=== PATIENT | male | born 1960 | race Caucasian/White ===

== ENCOUNTER 2020-06-01 19:42 | Inpatient (IN) ==
[2020-06-01 20:08] VITALS: BMI 34.2
[2020-06-01] MEDS ORDERED: ZOFRAN INJ 4 MG VIAL IVP ONE (20:44)
[2020-06-01] MEDS ORDERED: NS 1000 ML 1,000 ML IV ONE ×2 (20:44→23:00)
--- NOTE | 2020-06-01 20:44 | DR.EXTPAIN ---
HPI Time seen Time Seen by Provider: 06/01/20 20:41 PCP Primary Care Physician: HODA Complaint/Symptoms Chief Complaint Doctor Comments: PATIENT COMPLAINS OF RIGHT UPPER ABDOMINAL PAIN X 3 WEEKS, PAIN PROGRESSIVELY WORSE PAST 3 DAYS ASSOCIATED WITH EMESIS X 3 EPISODES TODAY, LOW GRADE FEVER, PAIN SEVERE PAIN SCALE 8/10 WHICH RADIATES TO RIGHT SHOULDER BLADE. DENIES URINARY SYMPTOMS, DIARRHEA. Chief Complaint:: "PATIENT STATES GALLBLADDER PAIN/ ABDOMINAL PAIN ISSUES HAVE BEEN GOING ON FOR 2-3 WEEKS, PATIENT CAN NOT KEEP ANYTHING DOWN AND HAS BEEN RUNNING A TEMP." Self Treatment fo Chief Complaint: PT. HAS HAD A GI COCKTAIL PT HAS HAD A GALLBLADDER ULTRASOUND TWO DAYS AGO COVID-19 Coronavirus risk:travel/contact w/high risk person: No Has patient experienced Coronavirus symptoms: No Source History Provided: Patient and Family Member Mode of arrival Mode of Arrival: Ambulatory Timing Onset of Chief Complaint: 05/25/20 PMH PMH Past Medical History: Yes Past Medical History: Hypertension, Hypothyroidism and Sleep Apnea Past Surgical History: Yes Surgical History: Appendectomy Family History History of Family Medical Conditions: Yes Family Medical History: Diabetes Mellitus, Coronary Artery Disease, Heart Failure and Hypertension Social History Does patient currently use any type of tobacco product: No Have you used tobacco products in the last 12 months: No Type of Tobacco Use: None Alcohol Use: Occasionally Do you use any recreational Drugs:: No Lives With: Spouse and Family Lives Where: Home Travel Risk Coronavirus risk:travel/contact w/high risk person: No Has patient experienced Coronavirus symptoms: No Infectious screening In the last 2 months have you had wt loss of >10#?: NO Have you had fever, night sweats or hemotysis?: Yes Have you traveled outside the country in the last 6 months?: No Isolation: Standard ROS Review of Systems Constitutional: No Symptoms Reported Eyes: No Symptoms Reported ENTM: No Symptoms Reported Respiratoy: No Symptoms Reported Cardiovascular: No Symptoms Reported Gastrointestinal/Abdominal: See HPI, Abdominal Pain (SEVERE RIGHT UPPER ABDOMINAL PAIN), Nausea and Vomiting Genitourinary: No Symptoms Reported Neurological: No Symptoms Reported Musculoskeletal: No Symptoms Reported Integumentary: No Symptoms Reported Hematologic/Lymphatic: No Symptoms Reported Endocrine: No Symptoms Reported Psychiatric: No Symptoms Reported All Other Systems: Reviewed and Negative PE Vital Signs Vitals: Temperature 99.3 F Pulse Rate [Bilateral Radial] 106 Pulse Rate 122 Respiratory Rate 18 Blood Pressure [Left Arm] 128/66 Blood Pressure 110/72 O2 Sat by Pulse Oximetry 94 General Limitations: No Limitations General Appearance: Alert, In No Apparent Distress and In Distress (MINIMAL DISTRESS) Head Head Exam: Normal Inspection Eyes Eye exam: Normal Appearance ENT ENT Exam: Normal Exam Neck Neck Exam: Normal Inspection Chest Chest Inspection: Normal Inspection Respiratory Respiratory Exam: Normal Lung Sounds Bilat Cardiovascular Cardiovascular Exam: Normal Rhythm and Tachycardia Abdominal Exam Abdominal Exam: Normal Inspection, Normal Bowel Sounds, Soft, Tenderness (MODERATE RUQ AND LLQ TENDERNESS WITH GUARDING, NO PALPABLE MASSES) and Rebound Abdominal Tenderness: RUQ and LLQ Extremities Extremities Exam: Normal Inspection Back Back Exam: Normal Inspection Neurological Neurological Exam: Alert, Oriented X3 and CN II-XII Intact Psychiatric Psychiatric Exam: Normal Affect and Normal Mood Skin Skin Exam: Warm, Dry, Intact and Normal Color COURSE Consultation Called: 23:25 Call Returned: 23:30 Consultation Comments: DISCUSSED WITH DR COX FOR INPATIENT ADMISSION ROR Labs Reviewed Laboratory Results Reviewed?: Yes Result Diagrams: 06/01/20 21:03 06/01/20 21:03 Laboratory: WBC 23.1 X10^3/uL (3.6-10.0) H 06/01/20 21:03 RBC 5.10 X10^6/uL (4.7-6.0) 06/01/20 21:03 Hgb 15.6 g/dL (13.5-18.0) 06/01/20 21:03 Hct 46.8 % (42.0-54.0) 06/01/20 21:03 MCV 91.8 fL (80.0-100.0) 06/01/20 21:03 MCH 30.6 pg (27.0-34.0) 06/01/20 21:03 MCHC 33.3 g/dL (33.0-35.0) 06/01/20 21:03 RDW 14.0 % (11.6-16.5) 06/01/20 21:03 Plt Count 387 X10^3/uL (150.0-450.0) 06/01/20 21:03 Plt Count Comment Adequate (ADEQUATE) 06/01/20 21:03 MPV 7.3 fL (7.4-11.0) L 06/01/20 21:03 Neut % (Auto) 92.1 % (42.0-75.0) H 06/01/20 21:03 Lymph % (Auto) 3.2 % (21.0-51.0) L 06/01/20 21:03 [place] % (Auto) 3.8 % (0.0-13.0) 06/01/20 21:03 Eos % (Auto) 0.5 % (0.9-2.9) L 06/01/20 21:03 Baso % (Auto) 0.4 % (0.2-1.0) 06/01/20 21:03 Neut # (Auto) 21.3 x10^3/uL (2.2-4.8) H 06/01/20 21:03 Lymph # (Auto) 0.7 X10^3/uL (1.3-2.9) L 06/01/20 21:03 [place] # (Auto) 0.9 x10^3/uL (0.3-0.8) H 06/01/20 21:03 Eos # (Auto) 0.1 x10^3/uL (0.0-0.2) 06/01/20 21:03 Baso # (Auto) 0.1 X10^3/uL (0.0-0.1) 06/01/20 21:03 Absolute Nucleated RBC 0.1 /100WBC 06/01/20 21:03 Total Counted 100 06/01/20 21:03 Neutrophils % (Manual) 92 % (39-76) H 06/01/20 21:03 Lymphocytes % (Manual) 5 % (13-43) L 06/01/20 21:03 Monocytes % (Manual) 3 % (4-9) L 06/01/20 21:03 Plt Morphology Comment Normal (NORMAL) 06/01/20 21:03 RBC Morphology Normal (NORMAL) 06/01/20 21:03 PT 16.4 SECONDS (11.8-14.3) 06/01/20 21:03 INR Target Range - 06/01/20 21:03 INR 1.36 (0.8-1.3) H 06/01/20 21:03 Sodium 135 mmol/L (136-145) L 06/01/20 21:03 Corrected Sodium 136 mmol/L (136-145) 06/01/20 21:03 Potassium 4.0 mmol/L (3.5-5.1) 06/01/20 21:03 Chloride 97 mmol/L (98-107) L 06/01/20 21:03 Carbon Dioxide 27.6 mmol/L (21-32) 06/01/20 21:03 BUN 19 mg/dL (7-18) H 06/01/20 21:03 Creatinine 1.29 mg/dL (0.70-1.30) 06/01/20 21:03 Est GFR (MDRD) Af Amer > 60 (>60) 06/01/20 21:03 Est GFR (MDRD) Non-Af > 60 (>60) 06/01/20 21:03 Glucose 158 mg/dL (65-99) H 06/01/20 21:03 Lactic Acid 0.9 mmol/L (0.4-2.0) 06/01/20 21:03 Calcium 9.5 mg/dL (8.5-10.1) 06/01/20 21:03 Corrected Calcium 10.1 mg/dL (8.5-10.1) 06/01/20 21:03 Total Bilirubin 0.80 mg/dL (0.2-1.0) 06/01/20 21:03 AST 12 Units/L (15-37) L 06/01/20 21:03 ALT 23 Units/L (12-78) 06/01/20 21:03 Alkaline Phosphatase 77 Units/L (46-116) 06/01/20 21:03 Total Protein 7.7 g/dL (6.4-8.2) 06/01/20 21:03 Albumin 3.2 g/dL (3.4-5.0) L 06/01/20 21:03 Globulin 4.5 g/dL (2.5-4.5) 06/01/20 21:03 Albumin/Globulin Ratio 0.7 Ratio (1.1-2.1) L 06/01/20 21:03 Amylase 26 Units/L (25-115) 06/01/20 21:03 Lipase 74 Units/L (73-393) 06/01/20 21:03 Specimen Type Clean catch urine 06/01/20 22:18 Urine Color Claudette (YELLOW) 06/01/20 22:18 Urine Appearance Clear (CLEAR) 06/01/20 22:18 Urine pH 5.0 (5.0 - 8.0) 06/01/20 22:18 Ur Specific [place] 1.025 (1.000-1.030) 06/01/20 22:18 Urine Protein 3+ (NEGATIVE) 06/01/20 22:18 Urine Glucose (UA) Negative (NEGATIVE) 06/01/20 22:18 Urine Ketones 2+ (NEGATIVE) 06/01/20 22:18 Urine Occult Blood 1+ (NEGATIVE) 06/01/20 22:18 Urine Nitrite Positive (NEGATIVE) 06/01/20 22:18 Urine Bilirubin 1+ (NEGATIVE) 06/01/20 22:18 Urine Urobilinogen 2+ (NORMAL) 06/01/20:18 Ur Leukocyte Esterase 1+ (NEGATIVE) 06/01/20:18 Urine RBC 0-2 /HPF (0-3) 06/01/20:18 Urine WBC 3-5 /HPF (0-5) 06/01/20 22:18 Ur Squamous Epith Cells Rare /HPF (NEGATIVE) 06/01/20 22:18 Amorphous Sediment Trace /HPF (NEGATIVE) 06/01/20 22:18 Urine Bacteria Trace /HPF (NEGATIVE) 06/01/20 22:18 Hyaline Casts Few /LPF (NEGATIVE) 06/01/20 22:18 Urine Mucus Numerous /HPF (NEGATIVE) 06/01/20:18 Ur Culture Indicated? No/not indicated 06/01/20:18 XRAY XRAY Interpreted by: Radiologist X-ray Results: HISTORY RUQ PAIN STUDY ABDOMEN/PELVIS WITH CON COMPARISON None TECHNIQUE Multiple axial images of the abdomen and pelvis were obtained from the lung bases to the pubic symphysis after the administration of IV contrast. Dose reduction techniques including Automated Exposure Control (AEC) and adjustment of mA and kV were utilized. FINDINGS The visualized portions of the lung bases are unremarkable . The liver, spleen, pancreas, kidneys, and adrenal glands are unremarkable in their CT appearance. The gallbladder is unremarkable in its CT appearance . No significant mesenteric lymphadenopathy or stranding can be observed. There are diverticula arising from the descending and sigmoid colon. There is colonic thickening and pericolonic stranding involving the sigmoid colon consistent with acute diverticulitis. There is suggestion of fistulous communication with adjacent small bowel loops which are mildly dilated likely due to localized ileus. There is extensive pneumoperitoneum indicative of perforated viscus in the absence of recent abdominal surgery.. Post appendectomy changes... The urinary bladder is grossly unremarkable. The bony structures are grossly intact. Small fat containing umbilical hernia. IMPRESSION Acute sigmoid colon diverticulitis with pneumoperitoneum indicative of perforation. 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 COMMUNICATIONS: These findings were discussed with of the emergency Department at 10:50 p.m. 06/01/2020 by Radiology call account support manager. Is Electronically signed by: Biju Lozano (Jun 01, 2020 22:51:42) Opioid Opioid Risk Tool Age (Charli box if 16-45): No Total: 0 Total Score Risk Category: Low Risk Copyright: Konrad DAVIDSON predicting aberrant behaviors Diagnosis Discharge Problem: Diverticulitis of intestine with perforation Instructions Forms: Precautions for COVID19 Patient Portal Social Distancing
[2020-06-01] MEDS ORDERED: NS 1000 ML 1,000 ML ONE ×2 (20:55→23:23)
[2020-06-01] MEDS ORDERED: DILAUDID INJ ONE (20:55)
[2020-06-01] MEDS ORDERED: ZOFRAN INJ 4 MG VIAL ONE (20:55)
[2020-06-01] MEDS: DILAUDID INJ IVP STA ×2 (21:14→21:27)
[2020-06-01 21:20] LABS: BASOPHILS # (AUTO) 0.1 X10^3/uL (0.0-0.1); BASOPHILS % (AUTO) 0.4 % (0.2-1.0); EOSINOPHILS # (AUTO) 0.1 x10^3/uL (0.0-0.2); EOSINOPHILS % (AUTO) 0.5 % (0.9-2.9); HEMATOCRIT 46.8 % (42.0-54.0); HEMOGLOBIN 15.6 g/dL (13.5-18.0); LYMPHOCYTES # (AUTO) 0.7 X10^3/uL (1.3-2.9); LYMPHOCYTES % (AUTO) 3.2 % (21.0-51.0); MEAN CORPUSCULAR HEMOGLOBIN 30.6 pg (27.0-34.0); MEAN CORPUSCULAR HGB CONC 33.3 g/dL (33.0-35.0); MEAN CORPUSCULAR VOLUME 91.8 fL (80.0-100.0); MEAN PLATELET VOLUME 7.3 fL (7.4-11.0); MONOCYTES # (AUTO) 0.9 x10^3/uL (0.3-0.8); MONOCYTES % (AUTO) 3.8 % (0.0-13.0); NEUTROPHILS # (AUTO) 21.3 x10^3/uL (2.2-4.8); NEUTROPHILS % (AUTO) 92.1 % (42.0-75.0); PLATELET COUNT 387 X10^3/uL (150.0-450.0); WHITE BLOOD COUNT 23.1 X10^3/uL (3.6-10.0)
[2020-06-01 21:25] LABS: ALANINE AMINOTRANSFERASE 23 Units/L (12-78); ALBUMIN 3.2 g/dL (3.4-5.0); ALKALINE PHOSPHATASE 77 Units/L (46-116); AMYLASE 26 Units/L (25-115); ASPARTATE AMINO TRANSFERASE 12 Units/L (15-37); BLOOD UREA NITROGEN 19 mg/dL (7-18); CALCIUM 9.5 mg/dL (8.5-10.1); CARBON DIOXIDE 27.6 mmol/L (21-32); CHLORIDE 97 mmol/L (98-107); COR CA(FOR HYPOALB) 10.1 mg/dL (8.5-10.1); COR NA(FOR HYPERGLY) 136 mmol/L (136-145); CREATININE 1.29 mg/dL (0.70-1.30); LIPASE 74 Units/L (73-393); SODIUM 135 mmol/L (136-145); TOTAL PROTEIN 7.7 g/dL (6.4-8.2); eGFR NON BLACK RACES > 60 (>60)
[2020-06-01 21:32] LABS: LACTIC ACID 0.9 mmol/L (0.4-2.0)
[2020-06-01 21:42] LABS: PLATELET MORPHOLOGY COMMENT NORMAL (NORMAL)
[2020-06-01] MEDS ORDERED: NS 500 ML IV 500 ML IV ONE (21:46)
[2020-06-01 22:27] LABS: BILIRUBIN,URINE 1+ (NEGATIVE); BLOOD/HEMOGLOBIN,URINE 1+ (NEGATIVE); GLUCOSE, URINE NEGATIVE (NEGATIVE); KETONES,URINE 2+ (NEGATIVE); LEUKOCYTE ESTERASE ,URINE 1+ (NEGATIVE); NITRITES,URINE POSITIVE (NEGATIVE); PROTEIN,URINE 3+ (NEGATIVE); UROBILINOGEN,URINE 2+ (NORMAL)
[2020-06-01 22:38] LABS: APPEARANCE,URINE CLEAR (CLEAR); COLOR,URINE AMBER (YELLOW)
[2020-06-01 22:39] LABS: AMORPHOUS SEDIMENT,UR TRACE /HPF (NEGATIVE); BACTERIA,URINE TRACE /HPF (NEGATIVE); HYALINE CASTS, URINE FEW /LPF (NEGATIVE); RBC,URINE 0-2 /HPF (0-3); SQUAMOUS EPITHELIAL CELL,UR RARE /HPF (NEGATIVE)
[2020-06-01 22:40] LABS: MUCUS,URINE NUMEROUS /HPF (NEGATIVE)
--- NOTE | 2020-06-01 22:52 | CT ---
HISTORYRUQ PAINSTUDYABDOMEN/PELVIS WITH CONCOMPARISONNoneTECHNIQUEMultiple axial images of the abdomen and pelvis were obtained from the lung bases to the pubic symphysis after the administration of IV contrast. Dose reduction techniques including Automated Exposure Control (AEC) and adjustment of mA and kV were utilized.FINDINGSThe visualized portions of the lung bases are unremarkable . The liver, spleen, pancreas, kidneys, and adrenal glands are unremarkable in their CT appearance. The gallbladder is unremarkable in its CT appearance . No significant mesenteric lymphadenopathy or stranding can be observed. There are diverticula arising from the descending and sigmoid colon. There is colonic thickening and pericolonic stranding involving the sigmoid colon consistent with acute diverticulitis. There is suggestion of fistulous communication with adjacent small bowel loops which are mildly dilated likely due to localized ileus. There is extensive pneumoperitoneum indicative of perforated viscus in the absence of recent abdominal surgery.. Post appendectomy changes... The urinary bladder is grossly unremarkable. The bony structures are grossly intact. 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 06/01/2020 by Radiology call administrative support clerk. IsElectronically signed by: Biju Lozano (Jun 01, 2020 22:51:42)
[2020-06-01] MEDS ORDERED: ZOSYN VIAL 3.375 GRAMS 3.375 G in NS 100 ML IV + SPIKE MINIBAG* 100 ML IV ONE ×4 (23:01)
[2020-06-01] MEDS ORDERED: ZOSYN VIAL 3.375 GRAMS IV ONE (23:22)
[2020-06-01] MEDS ORDERED: NS 100 ML IV + SPIKE MINIBAG* 100 ML IV ONE (23:23)
[2020-06-02] MEDS ORDERED: PEPCID 20 MG IV PREMIX* 20 MG/50 ML BAG IV PRN (00:17)
[2020-06-02] MEDS ORDERED: DILAUDID INJ IVP PRN ×2 (00:17→14:14)
[2020-06-02] MEDS: ZOSYN VIAL 3.375 GRAMS 3.375 G in NS 100 ML IV + SPIKE MINIBAG* 100 ML IV SCH ×4 (00:57→21:40)
[2020-06-02] MEDS ORDERED: FLAGYL IV PREMIX 500 MG BAG 500 MG/100 ML BAG IV ONE ×2 (01:20→10:59)
[2020-06-02] MEDS: NS 1000 ML 1,000 ML IV SCH ×4 (01:25→22:38)
[2020-06-02] MEDS ORDERED: NS 1000 ML 1,000 ML ONE ×2 (01:27→08:55)
[2020-06-02] MEDS ORDERED: DILAUDID INJ ONE ×3 (01:27→08:54)
[2020-06-02] MEDS ORDERED: ZOFRAN INJ 4 MG VIAL ONE ×2 (01:29→09:25)
[2020-06-02] MEDS: ZOFRAN INJ 4 MG VIAL IVP PRN (01:43)
[2020-06-02] MEDS: FLAGYL IV PREMIX 500 MG BAG 500 MG/100 ML BAG IV SCH ×4 (02:22→20:30)
--- NOTE | 2020-06-02 02:39 | RAD ---
HISTORYPRE-OPSTUDYCHEST, 1 VIEWCOMPARISONNoneFINDINGSThe trachea is midline. There is a nasogastric tube present however the tip is not identified. The cardiac silhouette is unremarkable . The lungs are clear without focal infiltrate or effusion. Pneumoperitoneum is present beneath both hemidiaphragms. The bony thorax is unremarkable.IMPRESSIONPneumoperitoneum.No active cardiopulmonary diseaseElectronically signed by: Biju Lozano (Jun 02, 2020 02:37:28)
--- NOTE | 2020-06-02 02:47 | RAD ---
HISTORYNG TUBE PLACEMENT PATIENT STATES GALLBLADDER PAIN/ ABDOMINAL PAIN ISSUES HAVE BEEN GOING ON FOR 2-3 WEEKS, PATIENT CAN NOT KEEP ANYTHING DOWN AND HAS BEEN RUNNING A TEMP.STUDYKUBCOMPARISONNoneFINDINGSEvaluation of the abdomen demonstrates a normal bowel gas pattern. There is a moderate amount of fecal material throughout the colon. There is an NG tube present with tip in the distal esophagus. The tube should be advanced into the stomach for more optimal placement. No pathological soft tissue mass or calcification can be observed. The bony structures are grossly intact.IMPRESSIONNG tube tip in distal esophagus and should be advanced into the stomach.Non obstruct dale abdominal bowel gas patternElectronically signed by: Biju Lozano (Jun 02, 2020 02:45:48)
--- NOTE | 2020-06-02 04:15 | RAD ---
HISTORYNG TUBE ADVANCEMENT Relevant Clinical [id number]/05/2020FINDINGSEvaluation of the abdomen demonstrates a normal bowel gas pattern. The nasogastric tube tip is now in the gastric fundus. The side hole is within the proxi mal stomach. No pathological soft tissue mass or calcification can be observed. The bony structures are grossly intact.IMPRESSIONNG tube in satisfactory position.Electronically signed by: Biju Lozano (Jun 02, 2020 04:13:55)
[2020-06-02] MEDS: DILAUDID INJ IVP PRN ×3 (04:46→21:00)
[2020-06-02 05:15] LABS: BASOPHILS % (AUTO) 0.1 % (0.2-1.0); HEMATOCRIT 41.6 % (42.0-54.0); HEMOGLOBIN 13.8 g/dL (13.5-18.0); LYMPHOCYTES # (AUTO) 0.8 X10^3/uL (1.3-2.9); LYMPHOCYTES % (AUTO) 3.6 % (21.0-51.0); MEAN CORPUSCULAR HEMOGLOBIN 30.9 pg (27.0-34.0); MEAN CORPUSCULAR HGB CONC 33.3 g/dL (33.0-35.0); MEAN CORPUSCULAR VOLUME 92.8 fL (80.0-100.0); MONOCYTES # (AUTO) 0.8 x10^3/uL (0.3-0.8); MONOCYTES % (AUTO) 3.6 % (0.0-13.0); NEUTROPHILS # (AUTO) 20.2 x10^3/uL (2.2-4.8); NEUTROPHILS % (AUTO) 92.7 % (42.0-75.0); PLATELET COUNT 337 X10^3/uL (150.0-450.0); RED BLOOD COUNT 4.48 X10^6/uL (4.7-6.0); WHITE BLOOD COUNT 21.8 X10^3/uL (3.6-10.0)
[2020-06-02 05:27] LABS: ALANINE AMINOTRANSFERASE 17 Units/L (12-78); ALBUMIN 2.6 g/dL (3.4-5.0); ALKALINE PHOSPHATASE 66 Units/L (46-116); ASPARTATE AMINO TRANSFERASE 9 Units/L (15-37); BLOOD UREA NITROGEN 17 mg/dL (7-18); CALCIUM 8.5 mg/dL (8.5-10.1); CARBON DIOXIDE 26.5 mmol/L (21-32); CHLORIDE 103 mmol/L (98-107); COR CA(FOR HYPOALB) 9.6 mg/dL (8.5-10.1); COR NA(FOR HYPERGLY) 138 mmol/L (136-145); CREATININE 1.14 mg/dL (0.70-1.30); SODIUM 137 mmol/L (136-145); TOTAL PROTEIN 6.4 g/dL (6.4-8.2); eGFR NON BLACK RACES > 60 (>60)
[2020-06-02 05:43] LABS: BAND NEUTROPHILS % 5 % (0-10); PLATELET MORPHOLOGY COMMENT NORMAL (NORMAL)
[2020-06-02] MEDS ORDERED: FENTANYL INJ 250 mcg ONE ×2 (08:54→10:15)
[2020-06-02] MEDS ORDERED: PROTONIX INJ 40 MG VIAL IVP SCH (09:00)
[2020-06-02] MEDS ORDERED: LR 1000 ML IV 1,000 ML IV ONE ×2 (09:08→11:51)
[2020-06-02] MEDS ORDERED: HETASTARCH IV ONE ×2 (09:25→13:24)
[2020-06-02] MEDS ORDERED: XYLOCAINE 2 % (PLAIN) ONE (09:25)
[2020-06-02] MEDS ORDERED: SODIUM CHLORIDE IV ONE ×2 (09:25→13:24)
[2020-06-02] MEDS ORDERED: QUELICIN (OR ANECTINE) ONE (09:25)
[2020-06-02] MEDS ORDERED: NORCURON INJ 10 MG VIAL ONE (09:25)
[2020-06-02] MEDS ORDERED: VERSED ONE (09:25)
[2020-06-02] MEDS ORDERED: TORADOL 30 MG VIAL ONE (09:25)
[2020-06-02] MEDS ORDERED: DIPRIVAN VIAL ONE (09:25)
[2020-06-02] MEDS ORDERED: NEO-SYNEPHRINE INJ ONE (09:25)
[2020-06-02] MEDS ORDERED: ROBINUL ONE (09:25)
[2020-06-02] MEDS ORDERED: ULTANE GAS IN ONE (09:25)
[2020-06-02] MEDS ORDERED: NEOSTIGMINE INJ ONE (09:25)
[2020-06-02] MEDS ORDERED: EPHEDRINE SULFATE INJ ONE (09:25)
[2020-06-02] MEDS ORDERED: POLYMYXIN B SULFATE ONE (09:55)
[2020-06-02] MEDS ORDERED: OFIRMEV IV 1000 MG VIAL 1,000 MG/100 ML VIAL IV ONE (11:18)
--- NOTE | 2020-06-02 11:33 | DR.CONSULT ---
CONSULT Consultation for Day of: Date: 06/02/20 Chief Complaint Chief Complaint: abdominal pain Allergies Allergies Allergy/AdvReac Type Severity Reaction Status Date / Time No Known Drug Allergies Allergy Verified 06/01/20 20:48 History of Present Illness History of Present Illness: Patient is a 59-year-old male with a PMH of HTN, GERD, BPH, Hypothyroidism and diverticulosis presented with generalized abdominal pain. He also had associated fever, nausea and vomiting. He had seen Dr. Laird as outpatient and had labs done along with gall bladder U/S which was nor mal. His pain was severe so he came to the ED. CTAP on admission showed acute sigmoid colon diverticulitis with perforation. It also showed possible fistula to the small intestine. Overnight, patient was kept NPO, started on IV hydration, antibiotics. He was also started on famotidine and Protonix. NGT placed. Labs: WBC 12.8 Hgb 13.8 BUN/Cr: 17/1.14 Glucose 127 KUB: NGT noted to be in place Past Medical History Past Medical History: Hypertension, Hypothyroidism and Sleep Apnea Past Surgical History Surgical History: Appendectomy Family History Family Medical History: Diabetes Mellitus, Coronary Artery Disease, Heart Failure and Hypertension Social History Does patient currently use any type of tobacco product: No Have you used tobacco products in the last 12 months: No Type of Tobacco Use: None Does any household member use tobacco: No Alcohol Use: Occasionally Drug Use: None Medications Home Medications: No Known Drug Allergies Allergy (Verified 06/01/20 20:48) CONTINUE taking the following medications levothyroxine 50 mcg PO DAILY 06/01/20 [History] lisinopril 20 mg PO DAILY 06/01/20 [History] pantoprazole 40 mg PO DAILY 06/01/20 [History] tamsulosin 0.4 mg PO DAILY 06/01/20 [History] Review of Systems Constitutional: Fever and Weakness Eyes: No Symptoms Reported ENT: No Symptoms Reported Respiratory: No Symptoms Reported Cardiovascular: No Symptoms Reported Gastrointestinal: Nausea, Vomiting and Abdominal Pain Genitourinary: No Symptoms Reported Musculoskeletal: No Symptoms Reported Skin: No Symptoms Reported Neurological: No Symptoms Reported Physical Exam Vital Signs: Temperature 98.3 F Pulse Rate [Bilateral Radial] 80 Pulse Rate 122 Respiratory Rate 16 Blood Pressure [Left Arm] 112/64 Blood Pressure 110/72 O2 Sat by Pulse Oximetry 97 Plan Plan: Patient is currently in surgery for laparotomy and Kathleen's procedure. Patient was not present in his room during my exam. Will follow along for post- op care.
[2020-06-02] MEDS ORDERED: BETADINE SOLN ONE (13:07)
[2020-06-02] MEDS ORDERED: PHENERGAN INJ 25 MG IM ONE (14:04)
[2020-06-02] MEDS ORDERED: PHENERGAN INJ 25 MG IM PRN (14:14)
[2020-06-02] MEDS ORDERED: REGLAN INJ 10 MG VIAL IVP PRN (14:14)
[2020-06-02] MEDS ORDERED: BENADRYL INJ 50 MG VIAL IVP PRN (14:14)
[2020-06-02] MEDS ORDERED: ZOFRAN INJ 4 MG VIAL IVP PRN (14:14)
--- NOTE | 2020-06-02 14:32 | OR.IMMED ---
Immediate Post-Op Note - Immediate Post-Op Note Pre-Op Diagnosis: perforated sigmoid diverticulitis . 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 pneumo peritoneum . Post-Op Diagnosis: perforated sigmoid diverticulitis . peritoniris with abscess formation . small bowel obstruction from the inflamatory sigmoid mass . ( neoplasm could not be r/o yet ) pending final pathology report .. Procedure: exploratory lap . lysis of adhesions . Velazquez's procedure with colostomy . drainage Surgeon/Pier Runner: Louise Specimens Removed: sigmoid , recto sigmoid . Drains: Stefan Means Complications: non Condition: Stable (IVF and ATB , DVT prophylaxis , Protonix IV . NGT to LIS . may have ice ..)
[2020-06-02] MEDS: PROTONIX INJ 40 MG VIAL IVP SCH ×2 (14:43→20:30)
[2020-06-02] MEDS: LOVENOX INJ 40 MG SYR SC SCH (15:03)
[2020-06-03] MEDS: DILAUDID INJ IVP PRN ×6 (01:46→21:26)
[2020-06-03] MEDS: FLAGYL IV PREMIX 500 MG BAG 500 MG/100 ML BAG IV SCH ×4 (02:24→21:25)
[2020-06-03] MEDS: ZOSYN VIAL 3.375 GRAMS 3.375 G in NS 100 ML IV + SPIKE MINIBAG* 100 ML IV SCH ×3 (05:39→22:50)
[2020-06-03 06:06] LABS: BASOPHILS # (AUTO) 0.1 X10^3/uL (0.0-0.1); BASOPHILS % (AUTO) 0.4 % (0.2-1.0); EOSINOPHILS # (AUTO) 0.1 x10^3/uL (0.0-0.2); EOSINOPHILS % (AUTO) 0.5 % (0.9-2.9); HEMATOCRIT 37.3 % (42.0-54.0); HEMOGLOBIN 12.3 g/dL (13.5-18.0); LYMPHOCYTES # (AUTO) 0.8 X10^3/uL (1.3-2.9); LYMPHOCYTES % (AUTO) 5.7 % (21.0-51.0); MEAN CORPUSCULAR HEMOGLOBIN 30.9 pg (27.0-34.0); MEAN CORPUSCULAR HGB CONC 32.9 g/dL (33.0-35.0); MEAN CORPUSCULAR VOLUME 94.1 fL (80.0-100.0); MEAN PLATELET VOLUME 7.7 fL (7.4-11.0); MONOCYTES # (AUTO) 0.6 x10^3/uL (0.3-0.8); MONOCYTES % (AUTO) 4.3 % (0.0-13.0); NEUTROPHILS # (AUTO) 11.7 x10^3/uL (2.2-4.8); NEUTROPHILS % (AUTO) 89.1 % (42.0-75.0); PLATELET COUNT 302 X10^3/uL (150.0-450.0); RED BLOOD COUNT 3.97 X10^6/uL (4.7-6.0); RED CELL DISTRIBUTION WIDTH 14.1 % (11.6-16.5); WHITE BLOOD COUNT 13.2 X10^3/uL (3.6-10.0)
[2020-06-03 06:39] LABS: ALANINE AMINOTRANSFERASE 18 Units/L (12-78); ALBUMIN 1.8 g/dL (3.4-5.0); ALKALINE PHOSPHATASE 50 Units/L (46-116); ASPARTATE AMINO TRANSFERASE 17 Units/L (15-37); BLOOD UREA NITROGEN 17 mg/dL (7-18); CALCIUM 7.7 mg/dL (8.5-10.1); CARBON DIOXIDE 26.4 mmol/L (21-32); CHLORIDE 108 mmol/L (98-107); COR CA(FOR HYPOALB) 9.5 mg/dL (8.5-10.1); COR NA(FOR HYPERGLY) 143 mmol/L (136-145); CREATININE 1.16 mg/dL (0.70-1.30); SODIUM 143 mmol/L (136-145); eGFR NON BLACK RACES > 60 (>60)
[2020-06-03] MEDS: NS 1000 ML 1,000 ML IV SCH ×2 (08:18→17:45)
[2020-06-03] MEDS: LOVENOX INJ 40 MG SYR SC SCH (08:21)
[2020-06-03] MEDS: PROTONIX INJ 40 MG VIAL IVP SCH ×2 (08:22→21:35)
--- NOTE | 2020-06-03 10:51 | PCM.PROG ---
Progress Note Progress Note for Day of Date of Exam: 06/03/20 Subjective Subjective: POD#1 s/p ex lap, lysis of adhesions, Velazquez's procedure with colostomy. Patient seen at bedside, no overnight events. He states he is doing well, pain is well controlled. he has the NG tube, MULUGETA drain and colostomy bag. MULUGETA drainage has decreased. He has remained afebrile post surgery. He is currently NPO except ice chips. Labs: Hgb 12.3 WBC 13.2 Na; 143 K: 4.3 BUN/Cr: 17/1.16 Plan: continue IVx and hydration. Follow Dr. Laird's recommendations. Monitor output from MULUGETA drain, NGT and Colostomy. Continue pain control. Lovenox for DVT ppx. Continue incentive spirometer. Monitor AM labs and cultures. Pathology pending. Past Medical Family Social History Past Med/Fam/Surg Hx: No changes since H&P Allergies: Allergies No Known Drug Allergies Allergy (Verified 06/01/20 20:48) Review of Systems ROS: No change since H&P Vital Signs and I&O's Vital Signs: Temperature 98.9 F Pulse Rate [Bilateral Radial] 96 Pulse Rate 105 Respiratory Rate 20 Blood Pressure [Right Arm] 113/59 Blood Pressure [Left Arm] 118/63 Blood Pressure 119/54 O2 Sat by Pulse Oximetry 98 Intake and Output: Intake & Output 05/31/20 06/01/20 06/02/20 06/03/20 23:59 23:59 23:59 23:59 Intake Total 1498 / 3296 2993 / 2993 Output Total 2244 / 2256 3177 / 3177 Balance -746 / 1040 -184 / -184 Physical Exam Oriented: Normal Eyes: Normal Nose: Normal and Other (NGT in place ) Throat: Normal Respiratory: Normal Cardiovascular: Normal Auscultation: Bowel Sounds: Decreased Tenderness: Epigastric, Mild and Other (s/p colostomy, MULUGETA drain noted with serosangionous drainage ) Skin: Decreased Turgur Musculoskeletal: Normal Psychiatric: Normal Mood Description: Calm Affect: Normal Speech Pattern: Clear and Appropriate Laboratory and Diagnostics Result Diagrams: 06/03/20 05:30 06/03/20 05:30 Labs: 06/02/20 10:15 Peritoneal Fluid Wound Culture - Preliminary 06/02/20 10:15 Peritoneal Fluid Gram Stain - Final 06/02/20 10:15 Peritoneal Fluid Wound Culture - Preliminary 06/01/20 21:05 Blood Blood Culture - Preliminary 06/01/20 21:03 Blood Blood Culture - Preliminary Laboratory WBC 13.2 X10^3/uL (3.6-10.0) H D 06/03/20 05:30 RBC 3.97 X10^6/uL (4.7-6.0) L 06/03/20 05:30 Hgb 12.3 g/dL (13.5-18.0) L 06/03/20 05:30 Hct 37.3 % (42.0-54.0) L 06/03/20 05:30 MCV 94.1 fL (80.0-100.0) 06/03/20 05:30 MCH 30.9 pg (27.0-34.0) 06/03/20 05:30 MCHC 32.9 g/dL (33.0-35.0) L 06/03/20 05:30 RDW 14.1 % (11.6-16.5) 06/03/20 05:30 Plt Count 302 X10^3/uL (150.0-450.0) 06/03/20 05:30 Plt Count Comment Adequate (ADEQUATE) 06/02/20 04:07 MPV 7.7 fL (7.4-11.0) 06/03/20 05:30 Neut % (Auto) 89.1 % (42.0-75.0) H 06/03/20 05:30 Lymph % (Auto) 5.7 % (21.0-51.0) L 06/03/20 05:30 [place] % (Auto) 4.3 % (0.0-13.0) 06/03/20 05:30 Eos % (Auto) 0.5 % (0.9-2.9) L 06/03/20 05:30 Baso % (Auto) 0.4 % (0.2-1.0) 06/03/20 05:30 Neut # (Auto) 11.7 x10^3/uL (2.2-4.8) H 06/03/20 05:30 Lymph # (Auto) 0.8 X10^3/uL (1.3-2.9) L 06/03/20 05:30 [place] # (Auto) 0.6 x10^3/uL (0.3-0.8) 06/03/20 05:30 Eos # (Auto) 0.1 x10^3/uL (0.0-0.2) 06/03/20 05:30 Baso # (Auto) 0.1 X10^3/uL (0.0-0.1) 06/03/20 05:30 Absolute Nucleated RBC 0.0 /100WBC 06/03/20 05:30 Total Counted 100 06/02/20 04:07 Neutrophils % (Manual) 88 % (39-76) H 06/02/20 04:07 Band Neutrophils % 5 % (0-10) 06/02/20 04:07 Lymphocytes % (Manual) 2 % (13-43) L 06/02/20 04:07 Monocytes % (Manual) 5 % (4-9) 06/02/20 04:07 Plt Morphology Comment Normal (NORMAL) 06/02/20 04:07 RBC Morphology Normal (NORMAL) 06/02/20 04:07 PT 16.4 SECONDS (11.8-14.3) 06/01/20 21:03 INR Target Range - 06/01/20 21:03 INR 1.36 (0.8-1.3) H 06/01/20 21:03 Sodium 143 mmol/L (136-145) 06/03/20 05:30 Corrected Sodium 143 mmol/L (136-145) 06/03/20 05:30 Potassium 4.3 mmol/L (3.5-5.1) 06/03/20 05:30 Chloride 108 mmol/L (98-107) H 06/03/20 05:30 Carbon Dioxide 26.4 mmol/L (21-32) 06/03/20 05:30 BUN 17 mg/dL (7-18) 06/03/20 05:30 Creatinine 1.16 mg/dL (0.70-1.30) 06/03/20 05:30 Est GFR (MDRD) Af Amer > 60 (>60) 06/03/20 05:30 Est GFR (MDRD) Non-Af > 60 (>60) 06/03/20 05:30 Glucose 112 mg/dL (65-99) H 06/03/20 05:30 Lactic Acid 0.9 mmol/L (0.4-2.0) 06/01/20 21:03 Calcium 7.7 mg/dL (8.5-10.1) L 06/03/20 05:30 Corrected Calcium 9.5 mg/dL (8.5-10.1) 06/03/20 05:30 Total Bilirubin 0.50 mg/dL (0.2-1.0) 06/03/20 05:30 AST 17 Units/L (15-37) 06/03/20 05:30 ALT 18 Units/L (12-78) 06/03/20 05:30 Alkaline Phosphatase 50 Units/L (46-116) 06/03/20 05:30 Total Protein 5.0 g/dL (6.4-8.2) L 06/03/20 05:30 Albumin 1.8 g/dL (3.4-5.0) L 06/03/20 05:30 Globulin 3.2 g/dL (2.5-4.5) 06/03/20 05:30 Albumin/Globulin Ratio 0.6 Ratio (1.1-2.1) L 06/03/20 05:30 Amylase 26 Units/L (25-115) 06/01/20 21:03 Lipase 74 Units/L (73-393) 06/01/20 21:03 Specimen Type Clean catch urine 06/01/20 22:18 Urine Color [place] (YELLOW) 06/01/20 22:18 Urine Appearance Clear (CLEAR) 06/01/20 22:18 Urine pH 5.0 (5.0 - 8.0) 06/01/20 22:18 Ur Specific [place] 1.025 (1.000-1.030) 06/01/20 22:18 Urine Protein 3+ (NEGATIVE) 06/01/20 22:18 Urine Glucose (UA) Negative (NEGATIVE) 06/01/20 22:18 Urine Ketones 2+ (NEGATIVE) 06/01/20:18 Urine Occult Blood 1+ (NEGATIVE) 06/01/20 22:18 Urine Nitrite Positive (NEGATIVE) 06/01/20 22:18 Urine Bilirubin 1+ (NEGATIVE) 06/01/20 22:18 Urine Urobilinogen 2+ (NORMAL) 06/01/20:18 Ur Leukocyte Esterase 1+ (NEGATIVE) 06/01/20 22:18 Urine RBC 0-2 /HPF (0-3) 06/01/20 22:18 Urine WBC 3-5 /HPF (0-5) 06/01/20 22:18 Ur Squamous Epith Cells Rare /HPF (NEGATIVE) 06/01/20 22:18 Amorphous Sediment Trace /HPF (NEGATIVE) 06/01/20 22:18 Urine Bacteria Trace /HPF (NEGATIVE) 06/01/20 22:18 Hyaline Casts Few /LPF (NEGATIVE) 06/01/20 22:18 Urine Mucus Numerous /HPF (NEGATIVE) 06/01/20 22:18 Ur Culture Indicated? No/not indicated 06/01/20 22:18 SARS CoV-2 RNA Rapid TANGELA Negative (NEGATIVE) 06/02/20 00:46 Tissue Pathology To follow 06/02/20 10:15 Plan (1) Diverticulitis of intestine with perforation: Status: Acute Qualifiers: Diverticulitis bleeding: unspecified bleeding status Diverticulitis si te: unspecified part of intestinal tract Qualified Code(s): K57.80 - Diverticulitis of intestine, part unspecified, with perforation and abscess without bleeding (2) Post-operative pain: Status: Acute (3) Colostomy care: Status: Acute (4) Postoperative anemia: Status: Acute (5) Status post Kathleen procedure: Status: Acute
--- NOTE | 2020-06-03 12:04 | DR.PROGNOT ---
Hospital Progress Notes - Progress Note for Day of: Progress Note Date: 06/03/20 - Chief Complaint Chief Complaint: post op day 1 . doing fairly well . good urine out put . minimal drainage in MULUGETA - Past Medical Family Social History Past Med/Fam/Surg Hx: No changes since H&P Allergies: Allergies No Known Drug Allergies Allergy (Verified 06/01/20 20:48) - Review Of Systems ROS: No change since H&P - Vital Signs Vital Signs: Temperature 98.9 F Pulse Rate [Bilateral Radial] 96 Pulse Rate 105 Respiratory Rate 18 Blood Pressure [Right Arm] 113/59 Blood Pressure [Left Arm] 118/63 Blood Pressure 119/54 O2 Sat by Pulse Oximetry 98 - Physical Exam Oriented: Normal Eyes: Normal Nose: Other (NGT in place), Normal Throat: Normal Respiratory: Normal Cardiovascular: Normal GI:Auscultation: Decreased GI: Tenderness: Epigastric, Mild, Other (s/p colostomy, MULUGETA drain noted with serosangionous drainage) Skin: Decreased Turgur Musculoskeletal: Normal Psychiatric: Normal Mood Description: Calm Affect: Normal Speech Pattern: Clear, Appropriate - Laboratory and Diagnostics Result Diagrams: 06/03/20 05:30 06/03/20 05:30 Labs: 06/02/20 10:15 Peritoneal Fluid Wound Culture - Preliminary 06/02/20 10:15 Peritoneal Fluid Gram Stain - Final 06/02/20 10:15 Peritoneal Fluid Wound Culture - Preliminary 06/01/20 21:05 Blood Blood Culture - Preliminary 06/01/20 21:03 Blood Blood Culture - Preliminary Laboratory WBC 13.2 X10^3/uL (3.6-10.0) H D 06/03/20 05:30 RBC 3.97 X10^6/uL (4.7-6.0) L 06/03/20 05:30 Hgb 12.3 g/dL (13.5-18.0) L 06/03/20 05:30 Hct 37.3 % (42.0-54.0) L 06/03/20 05:30 MCV 94.1 fL (80.0-100.0) 06/03/20 05:30 MCH 30.9 pg (27.0-34.0) 06/03/20 05:30 MCHC 32.9 g/dL (33.0-35.0) L 06/03/20 05:30 RDW 14.1 % (11.6-16.5) 06/03/20 05:30 Plt Count 302 X10^3/uL (150.0-450.0) 06/03/20 05:30 Plt Count Comment Adequate (ADEQUATE) 06/02/20 04:07 MPV 7.7 fL (7.4-11.0) 06/03/20 05:30 Neut % (Auto) 89.1 % (42.0-75.0) H 06/03/20 05:30 Lymph % (Auto) 5.7 % (21.0-51.0) L 06/03/20 05:30 [place] % (Auto) 4.3 % (0.0-13.0) 06/03/20 05:30 Eos % (Auto) 0.5 % (0.9-2.9) L 06/03/20 05:30 Baso % (Auto) 0.4 % (0.2-1.0) 06/03/20 05:30 Neut # (Auto) 11.7 x10^3/uL (2.2-4.8) H 06/03/20 05:30 Lymph # (Auto) 0.8 X10^3/uL (1.3-2.9) L 06/03/20 05:30 [place] # (Auto) 0.6 x10^3/uL (0.3-0.8) 06/03/20 05:30 Eos # (Auto) 0.1 x10^3/uL (0.0-0.2) 06/03/20 05:30 Baso # (Auto) 0.1 X10^3/uL (0.0-0.1) 06/03/20 05:30 Absolute Nucleated RBC 0.0 /100WBC 06/03/20 05:30 Total Counted 100 06/02/20 04:07 Neutrophils % (Manual) 88 % (39-76) H 06/02/20 04:07 Band Neutrophils % 5 % (0-10) 06/02/20 04:07 Lymphocytes % (Manual) 2 % (13-43) L 06/02/20 04:07 Monocytes % (Manual) 5 % (4-9) 06/02/20 04:07 Plt Morphology Comment Normal (NORMAL) 06/02/20 04:07 RBC Morphology Normal (NORMAL) 06/02/20 04:07 PT 16.4 SECONDS (11.8-14.3) 06/01/20 21:03 INR Target Range - 06/01/20 21:03 INR 1.36 (0.8-1.3) H 06/01/20 21:03 Sodium 143 mmol/L (136-145) 06/03/20 05:30 Corrected Sodium 143 mmol/L (136-145) 06/03/20 05:30 Potassium 4.3 mmol/L (3.5-5.1) 06/03/20 05:30 Chloride 108 mmol/L (98-107) H 06/03/20 05:30 Carbon Dioxide 26.4 mmol/L (21-32) 06/03/20 05:30 BUN 17 mg/dL (7-18) 06/03/20 05:30 Creatinine 1.16 mg/dL (0.70-1.30) 06/03/20 05:30 Est GFR (MDRD) Af Amer > 60 (>60) 06/03/20 05:30 Est GFR (MDRD) Non-Af > 60 (>60) 06/03/20 05:30 Glucose 112 mg/dL (65-99) H 06/03/20 05:30 Lactic Acid 0.9 mmol/L (0.4-2.0) 06/01/20 21:03 Calcium 7.7 mg/dL (8.5-10.1) L 06/03/20 05:30 Corrected Calcium 9.5 mg/dL (8.5-10.1) 06/03/20 05:30 Total Bilirubin 0.50 mg/dL (0.2-1.0) 06/03/20 05:30 AST 17 Units/L (15-37) 06/03/20 05:30 ALT 18 Units/L (12-78) 06/03/20 05:30 Alkaline Phosphatase 50 Units/L (46-116) 06/03/20 05:30 Total Protein 5.0 g/dL (6.4-8.2) L 06/03/20 05:30 Albumin 1.8 g/dL (3.4-5.0) L 06/03/20 05:30 Globulin 3.2 g/dL (2.5-4.5) 06/03/20 05:30 Albumin/Globulin Ratio 0.6 Ratio (1.1-2.1) L 06/03/20 05:30 Amylase 26 Units/L (25-115) 06/01/20 21:03 Lipase 74 Units/L (73-393) 06/01/20 21:03 Specimen Type Clean catch urine 06/01/20 22:18 Urine Color [place] (YELLOW) 06/01/20 22:18 Urine Appearance Clear (CLEAR) 06/01/20 22:18 Urine pH 5.0 (5.0 - 8.0) 06/01/20 22:18 Ur Specific [place] 1.025 (1.000-1.030) 06/01/20 22:18 Urine Protein 3+ (NEGATIVE) 06/01/20 22:18 Urine Glucose (UA) Negative (NEGATIVE) 06/01/20 22:18 Urine Ketones 2+ (NEGATIVE) 06/01/20 22:18 Urine Occult Blood 1+ (NEGATIVE) 06/01/20 22:18 Urine Nitrite Positive (NEGATIVE) 06/01/20 22:18 Urine Bilirubin 1+ (NEGATIVE) 06/01/20 22:18 Urine Urobilinogen 2+ (NORMAL) 06/01/20 22:18 Ur Leukocyte Esterase 1+ (NEGATIVE) 06/01/20 22:18 Urine RBC 0-2 /HPF (0-3) 06/01/20 22:18 Urine WBC 3-5 /HPF (0-5) 06/01/20 22:18 Ur Squamous Epith Cells Rare /HPF (NEGATIVE) 06/01/20 22:18 Amorphous Sediment Trace /HPF (NEGATIVE) 06/01/20 22:18 Urine Bacteria Trace /HPF (NEGATIVE) 06/01/20 22:18 Hyaline Casts Few /LPF (NEGATIVE) 06/01/20 22:18 Urine Mucus Numerous /HPF (NEGATIVE) 06/01/20 22:18 Ur Culture Indicated? No/not indicated 06/01/20 22:18 SARS CoV-2 RNA Rapid TANGELA Negative (NEGATIVE) 06/02/20 00:46 Tissue Pathology To follow 06/02/20 10:15 - Assessment and Plan 1: PO Velazquez's procedure . same po care . DVT prophylaxis .IV ATB. d/c NGT and [place] cath . keep NPO today . OOB with binder . - Problem Patient Problems: Patient Problems Diverticulitis of intestine with perforation (Acute) K57.80
[2020-06-03] MEDS: ZOFRAN INJ 4 MG VIAL IVP PRN ×2 (13:05→17:45)
[2020-06-03] MEDS: AYR NASAL DROPS SCH ×3 (13:32→21:25)
[2020-06-03] MEDS ORDERED: FLOMAX ONE (16:38)
[2020-06-03] MEDS: FLOMAX PO SCH (16:58)
[2020-06-04] MEDS: DILAUDID INJ IVP PRN ×6 (02:30→22:29)
[2020-06-04] MEDS: FLAGYL IV PREMIX 500 MG BAG 500 MG/100 ML BAG IV SCH ×4 (03:00→20:55)
[2020-06-04] MEDS: NS 1000 ML 1,000 ML IV SCH ×3 (05:59→20:55)
[2020-06-04] MEDS: ZOSYN VIAL 3.375 GRAMS 3.375 G in NS 100 ML IV + SPIKE MINIBAG* 100 ML IV SCH ×3 (06:14→22:29)
[2020-06-04 06:26] LABS: BASOPHILS % (AUTO) 0.4 % (0.2-1.0); EOSINOPHILS # (AUTO) 0.3 x10^3/uL (0.0-0.2); EOSINOPHILS % (AUTO) 2.5 % (0.9-2.9); HEMATOCRIT 36.5 % (42.0-54.0); HEMOGLOBIN 11.9 g/dL (13.5-18.0); LYMPHOCYTES # (AUTO) 0.8 X10^3/uL (1.3-2.9); LYMPHOCYTES % (AUTO) 8.3 % (21.0-51.0); MEAN CORPUSCULAR HEMOGLOBIN 30.6 pg (27.0-34.0); MEAN CORPUSCULAR HGB CONC 32.5 g/dL (33.0-35.0); MEAN CORPUSCULAR VOLUME 94.1 fL (80.0-100.0); MEAN PLATELET VOLUME 7.4 fL (7.4-11.0); MONOCYTES # (AUTO) 0.6 x10^3/uL (0.3-0.8); MONOCYTES % (AUTO) 5.7 % (0.0-13.0); NEUTROPHILS # (AUTO) 8.4 x10^3/uL (2.2-4.8); NEUTROPHILS % (AUTO) 83.1 % (42.0-75.0); PLATELET COUNT 343 X10^3/uL (150.0-450.0); RED BLOOD COUNT 3.88 X10^6/uL (4.7-6.0); RED CELL DISTRIBUTION WIDTH 14.6 % (11.6-16.5); WHITE BLOOD COUNT 10.1 X10^3/uL (3.6-10.0)
[2020-06-04 06:46] LABS: ALANINE AMINOTRANSFERASE 19 Units/L (12-78); ALBUMIN 1.9 g/dL (3.4-5.0); ALKALINE PHOSPHATASE 48 Units/L (46-116); ASPARTATE AMINO TRANSFERASE 18 Units/L (15-37); BLOOD UREA NITROGEN 13 mg/dL (7-18); CALCIUM 7.9 mg/dL (8.5-10.1); CARBON DIOXIDE 27.7 mmol/L (21-32); CHLORIDE 106 mmol/L (98-107); COR CA(FOR HYPOALB) 9.6 mg/dL (8.5-10.1); CREATININE 0.89 mg/dL (0.70-1.30); SODIUM 142 mmol/L (136-145); TOTAL PROTEIN 5.4 g/dL (6.4-8.2); eGFR NON BLACK RACES > 60 (>60)
[2020-06-04] MEDS: ZOFRAN INJ 4 MG VIAL IVP PRN (08:10)
[2020-06-04] MEDS: AYR NASAL DROPS SCH ×4 (09:08→20:55)
[2020-06-04] MEDS: FLOMAX PO SCH (09:09)
[2020-06-04] MEDS: PROTONIX INJ 40 MG VIAL IVP SCH ×2 (09:09→20:55)
[2020-06-04] MEDS: LOVENOX INJ 40 MG SYR SC SCH (09:30)
--- NOTE | 2020-06-04 11:14 | PCM.PROG ---
Progress Note - Progress Note for Day of Date of Exam: 06/04/20 - Subjective Subjective: IS POST OP DAY 2 S/P EXPLORATORY LAP, LYSIS OF ADHESIONS, HARTMANS PROCEDURE WITH COLOSTOMY. TODAY, HE IS ALERT AND ORIENTED, SITTING UP IN BED ON MORNING ROUNDS. HE CONTINUES WITH ABDOMINAL PAIN, BUT REPORTS THAT PAIN IS WELL CONTROLLED WITH MEDS. HE IS REQUESTING TO INCREASE DI ET THIS MORNING. ON EXAMINATION, HEART IS REGULAR IN RATE AND RHYTHM. BILATERAL LUNGS ARE NOTED WITH DIMINISHED LUNG SOUNDS THROUGHOUT. ABDOMEN IS ROUND AND NOTED WITH DIFFUSE TENDERNESS. MULUGETA DRAIN NOTED WITH MINIMAL DRAINAGE. NO STOOL IN COLOSTOMY BAG AT THIS TIME. HIS VITALS THIS MORNING ARE: 98.2- 96-18-96%NC-112/64. LABS WERE OBTAINED. ABNORMAL LAB VALUES INCLUDE THE FOLLOWING: WBC 10.1, RBC 3.88, HGB 11.9, HCT 36.5, INR 1.36, GLUCOSE 100, CALCIUM 7.9, TOTAL PROTEIN 5.4, ALBUMIN 1.9. BLOOD, AND PERITONEAL FLUID CULTURES ARE PENDING. HE IS CURRENTLY RECEIVING NS AT 125 ML/HR, ZOSYN 3.375G IV TID, FLAGYL 500MG IV Q6H, PEPCID 20MG IV BID, PROTONIX 40MG IV BID, DILAUDID 1- 2MG IV Q3H PRN, LOVENOX 40MG SC DAILY, AND ZOFRAN 4MG IV Q6H PRN. WILL CONTINUE TO FOLLOW PATIENT. OTHERWISE, WE PLAN TO FOLLOW UP WITH AM LABS AND CONTINUE TO MONITOR. - Past Medical Family Social History Past Med/Fam/Surg Hx: No changes since H&P Allergies: Allergies No Known Drug Allergies Allergy (Verified 06/01/20 20:48) - Review of Systems ROS: No change since H&P - Vital Signs and I&O's Vital Signs: Temperature 98.2 F Pulse Rate [Bilateral Radial] 96 Pulse Rate 110 Respiratory Rate 18 Blood Pressure [Right Arm] 112/64 Blood Pressure [Left Arm] 127/66 Blood Pressure 119/54 O2 Sat by Pulse Oximetry 96 Intake and Output: Intake & Output 06/01/20 06/02/20 06/03/20 06/04/20 11:59 11:59 11:59 11:59 Intake Total 1198 / 1198 3293 / 3293 4832 / 4832 Output Total 1350 / 1350 4071 / 4071 3500 / 3500 Balance -152 / -152 -778 / -778 1332 / 1332 - Physical Exam Oriented: Normal Eyes: Normal Nose: Normal Throat: Normal Respiratory: Normal Cardiovascular: Normal Auscultation: Bowel Sounds: Decreased Palpation: Normal Tenderness: Epigastric, Mild, Other (s/p colostomy, MULUGETA drain noted with serosangionous drainage) Skin: Decreased Turgur Musculoskeletal: Normal Psychiatric: Normal Mood Description: Calm Affect: Normal Speech Pattern: Clear, Appropriate - Laboratory and Diagnostics Result Diagrams: 06/04/20 06:07 06/04/20 06:07 Labs: 06/02/20 10:15 Peritoneal Fluid Wound Culture - Preliminary 06/02/20 10:15 Peritoneal Fluid Gram Stain - Final 06/02/20 10:15 Peritoneal Fluid Wound Culture - Final Escherichia Coli 06/01/20 21:05 Blood Blood Culture - Preliminary 06/01/20 21:03 Blood Blood Culture - Preliminary Laboratory WBC 10.1 X10^3/uL (3.6-10.0) H 06/04/20 06:07 RBC 3.88 X10^6/uL (4.7-6.0) L 06/04/20 06:07 Hgb 11.9 g/dL (13.5-18.0) L 06/04/20 06:07 Hct 36.5 % (42.0-54.0) L 06/04/20 06:07 MCV 94.1 fL (80.0-100.0) 06/04/20 06:07 MCH 30.6 pg (27.0-34.0) 06/04/20 06:07 MCHC 32.5 g/dL (33.0-35.0) L 06/04/20 06:07 RDW 14.6 % (11.6-16.5) 06/04/20 06:07 Plt Count 343 X10^3/uL (150.0-450.0) 06/04/20 06:07 Plt Count Comment Adequate (ADEQUATE) 06/02/20 04:07 MPV 7.4 fL (7.4-11.0) 06/04/20 06:07 Neut % (Auto) 83.1 % (42.0-75.0) H 06/04/20 06:07 Lymph % (Auto) 8.3 % (21.0-51.0) L 06/04/20 06:07 [place] % (Auto) 5.7 % (0.0-13.0) 06/04/20 06:07 Eos % (Auto) 2.5 % (0.9-2.9) 06/04/20 06:07 Baso % (Auto) 0.4 % (0.2-1.0) 06/04/20 06:07 Neut # (Auto) 8.4 x10^3/uL (2.2-4.8) H 06/04/20 06:07 Lymph # (Auto) 0.8 X10^3/uL (1.3-2.9) L 06/04/20 06:07 [place] # (Auto) 0.6 x10^3/uL (0.3-0.8) 06/04/20 06:07 Eos # (Auto) 0.3 x10^3/uL (0.0-0.2) H 06/04/20 06:07 Baso # (Auto) 0.0 X10^3/uL (0.0-0.1) 06/04/20 06:07 Absolute Nucleated RBC 0.0 /100WBC 06/04/20 06:07 Total Counted 100 06/02/20 04:07 Neutrophils % (Manual) 88 % (39-76) H 06/02/20 04:07 Band Neutrophils % 5 % (0-10) 06/02/20 04:07 Lymphocytes % (Manual) 2 % (13-43) L 06/02/20 04:07 Monocytes % (Manual) 5 % (4-9) 06/02/20 04:07 Plt Morphology Comment Normal (NORMAL) 06/02/20 04:07 RBC Morphology Normal (NORMAL) 06/02/20 04:07 PT 16.4 SECONDS (11.8-14.3) 06/01/20 21:03 INR Target Range - 06/01/20 21:03 INR 1.36 (0.8-1.3) H 06/01/20 21:03 Sodium 142 mmol/L (136-145) 06/04/20 06:07 Corrected Sodium TNP 06/04/20 06:07 Potassium 4.0 mmol/L (3.5-5.1) 06/04/20 06:07 Chloride 106 mmol/L (98-107) 06/04/20 06:07 Carbon Dioxide 27.7 mmol/L (21-32) 06/04/20 06:07 BUN 13 mg/dL (7-18) 06/04/20 06:07 Creatinine 0.89 mg/dL (0.70-1.30) 06/04/20 06:07 Est GFR (MDRD) Af Amer > 60 (>60) 06/04/20 06:07 Est GFR (MDRD) Non-Af > 60 (>60) 06/04/20 06:07 Glucose 100 mg/dL (65-99) H 06/04/20 06:07 Lactic Acid 0.9 mmol/L (0.4-2.0) 06/01/20 21:03 Calcium 7.9 mg/dL (8.5-10.1) L 06/04/20 06:07 Corrected Calcium 9.6 mg/dL (8.5-10.1) 06/04/20 06:07 Total Bilirubin 0.50 mg/dL (0.2-1.0) 06/04/20 06:07 AST 18 Units/L (15-37) 06/04/20 06:07 ALT 19 Units/L (12-78) 06/04/20 06:07 Alkaline Phosphatase 48 Units/L (46-116) 06/04/20 06:07 Total Protein 5.4 g/dL (6.4-8.2) L 06/04/20 06:07 Albumin 1.9 g/dL (3.4-5.0) L 06/04/20 06:07 Globulin 3.5 g/dL (2.5-4.5) 06/04/20 06:07 Albumin/Globulin Ratio 0.5 Ratio (1.1-2.1) L 06/04/20 06:07 Amylase 26 Units/L (25-115) 06/01/20 21:03 Lipase 74 Units/L (73-393) 06/01/20 21:03 Specimen Type Clean catch urine 06/01/20 22:18 Urine Color [place] (YELLOW) 06/01/20 22:18 Urine Appearance Clear (CLEAR) 06/01/20 22:18 Urine pH 5.0 (5.0 - 8.0) 06/01/20 22:18 Ur Specific [place] 1.025 (1.000-1.030) 06/01/20 22:18 Urine Protein 3+ (NEGATIVE) 06/01/20 22:18 Urine Glucose (UA) Negative (NEGATIVE) 06/01/20 22:18 Urine Ketones 2+ (NEGATIVE) 06/01/20 22:18 Urine Occult Blood 1+ (NEGATIVE) 06/01/20 22:18 Urine Nitrite Positive (NEGATIVE) 06/01/20 22:18 Urine Bilirubin 1+ (NEGATIVE) 06/01/20 22:18 Urine Urobilinogen 2+ (NORMAL) 06/01/20 22:18 Ur Leukocyte Esterase 1+ (NEGATIVE) 06/01/20 22:18 Urine RBC 0-2 /HPF (0-3) 06/01/20 22:18 Urine WBC 3-5 /HPF (0-5) 06/01/20 22:18 Ur Squamous Epith Cells Rare /HPF (NEGATIVE) 06/01/20 22:18 Amorphous Sediment Trace /HPF (NEGATIVE) 06/01/20 22:18 Urine Bacteria Trace /HPF (NEGATIVE) 06/01/20 22:18 Hyaline Casts Few /LPF (NEGATIVE) 06/01/20 22:18 Urine Mucus Numerous /HPF (NEGATIVE) 06/01/20 22:18 Ur Culture Indicated? No/not indicated 06/01/20 22:18 SARS CoV-2 RNA Rapid TANGELA Negative (NEGATIVE) 06/02/20 00:46 Tissue Pathology To follow 06/02/20 10:15 - Plan (1) Diverticulitis of intestine with perforation Status: Acute Qualifiers: Diverticulitis site: unspecified part of intestinal tract Diverticulitis bleeding: unspecified bleeding status Qualified Code(s): K57.80 - Diverticulitis of intestine, part unspecified, with perforation and abscess without bleeding (2) Status post Kathleen procedure Status: Acute
[2020-06-05] MEDS: ZOFRAN INJ 4 MG VIAL IVP PRN ×4 (01:14→22:40)
[2020-06-05] MEDS: DILAUDID INJ IVP PRN ×5 (01:30→21:35)
[2020-06-05 02:22] LABS: CKMB % 0.4 % (<4); CREATINE KINASE 284 Units/L (39-308); CREATINE KINASE MB < 1.0 ng/mL (0-4.0); TROPONIN I < 0.02 ng/mL (0-1.5)
[2020-06-05] MEDS: FLAGYL IV PREMIX 500 MG BAG 500 MG/100 ML BAG IV SCH ×4 (02:29→21:00)
[2020-06-05 05:19] LABS: BASOPHILS % (AUTO) 0.5 % (0.2-1.0); EOSINOPHILS # (AUTO) 0.3 x10^3/uL (0.0-0.2); EOSINOPHILS % (AUTO) 3.3 % (0.9-2.9); HEMATOCRIT 34.8 % (42.0-54.0); HEMOGLOBIN 11.6 g/dL (13.5-18.0); LYMPHOCYTES # (AUTO) 0.9 X10^3/uL (1.3-2.9); LYMPHOCYTES % (AUTO) 9.5 % (21.0-51.0); MEAN CORPUSCULAR HEMOGLOBIN 31.3 pg (27.0-34.0); MEAN CORPUSCULAR HGB CONC 33.4 g/dL (33.0-35.0); MEAN CORPUSCULAR VOLUME 93.6 fL (80.0-100.0); MEAN PLATELET VOLUME 7.2 fL (7.4-11.0); MONOCYTES # (AUTO) 0.6 x10^3/uL (0.3-0.8); MONOCYTES % (AUTO) 6.6 % (0.0-13.0); NEUTROPHILS # (AUTO) 7.2 x10^3/uL (2.2-4.8); NEUTROPHILS % (AUTO) 80.1 % (42.0-75.0); PLATELET COUNT 331 X10^3/uL (150.0-450.0); RED BLOOD COUNT 3.71 X10^6/uL (4.7-6.0); RED CELL DISTRIBUTION WIDTH 13.8 % (11.6-16.5)
[2020-06-05 05:34] LABS: ALANINE AMINOTRANSFERASE 18 Units/L (12-78); ALBUMIN 1.8 g/dL (3.4-5.0); ALKALINE PHOSPHATASE 50 Units/L (46-116); ASPARTATE AMINO TRANSFERASE 22 Units/L (15-37); BLOOD UREA NITROGEN 10 mg/dL (7-18); CALCIUM 7.8 mg/dL (8.5-10.1); CARBON DIOXIDE 27.8 mmol/L (21-32); CHLORIDE 103 mmol/L (98-107); COR CA(FOR HYPOALB) 9.6 mg/dL (8.5-10.1); CREATININE 0.79 mg/dL (0.70-1.30); SODIUM 139 mmol/L (136-145); TOTAL PROTEIN 5.1 g/dL (6.4-8.2); eGFR NON BLACK RACES > 60 (>60)
--- NOTE | 2020-06-05 06:15 | RAD ---
HISTORYAbdominal distension, recent surgerySTUDYAcute abdominal [id number] is within normal limits in size. The lungs are hypoinflated but free of acute infiltrates. Bibasilar subsegmental atelectasis is present. The abdominal gas pattern is nonspecific and nonobstructive. Both small and large bowel gas is identified. There is no definite evidence for pneumoperitoneum. No abnormal masses or abnormal calcifications are identified. Regional skeleton is intact.IMPRESSIONNonspecific, nonobstructive bowel gas pattern. Small large bowel gas identified in a pattern suggestive of mild ileusElectronically signed by: FRANKI TIDWELL (Jun 05, 2020 06:14:30)
[2020-06-05] MEDS: NS 1000 ML 1,000 ML IV SCH ×4 (06:17→21:53)
[2020-06-05] MEDS: ZOSYN VIAL 3.375 GRAMS 3.375 G in NS 100 ML IV + SPIKE MINIBAG* 100 ML IV SCH ×3 (06:17→22:39)
[2020-06-05] MEDS: AYR NASAL DROPS SCH ×4 (08:40→20:30)
[2020-06-05] MEDS: LOVENOX INJ 40 MG SYR SC SCH (08:41)
[2020-06-05] MEDS: FLOMAX PO SCH (08:41)
[2020-06-05] MEDS: PROTONIX INJ 40 MG VIAL IVP SCH ×2 (08:44→21:00)
--- NOTE | 2020-06-05 10:03 | PCM.PROG ---
Progress Note - Progress Note for Day of Date of Exam: 06/05/20 - Subjective Subjective: IS POST OP DAY 3 S/P EXPLORATORY LAP, LYSIS OF ADHESIONS, HARTMANS PROCEDURE WITH COLOSTOMY. TODAY, HE IS ALERT AND ORIENTED, LYING IN BED ON MORNING ROUNDS. HE CONTINUES WITH ABDOMINAL PAIN THAT IS SLIGHTLY WORSE TODAY COMPARTED TO YESTERDAY. HE ALSO REPORTS NASAL CONGESTION TODAY. HE WAS ALLOWED TO HAVE CLEAR LIQUIDS YESTERDAY, BUT PATIENT BELIEVES HE MAY HAVE HAD TOO MUCH, TOO FAST. ON EXAMINATION, HEART IS REGULAR IN RATE AND RHYTHM. BILATERAL LUNGS ARE NOTED WITH DIMINISHED LUNG SOUNDS THROUGHOUT. ABDOMEN IS ROUND AND NOTED WITH DIFFUSE TENDERNESS. MULUGETA DRAIN NOTED WITH MINIMAL DRAINAGE. NO STOOL IN COLOSTOMY BAG AT THIS TIME, BUT HE IS HAVING FLATTUS. HIS VITALS THIS MORNING ARE: 98.0-86-18-98%-130/91. LABS WERE OBTAINED. ABNORMAL LAB VALUES INCLUDE THE FOLLOWING: RBC 3.71, HGB 11.6, HCT 34.8, CALCIUM 7.8, TOTAL PROTEIN 5.1, ALBUMIN 1.8. BLOOD CULTURES ARE PENDING. PERITONEAL FLUID CULTURE IS POSITIVE FOR E.COLI. HE IS CURRENTLY RECEIVING NS AT 125 ML/HR, ZOSYN 3.375G IV TID, FLAGYL 500MG IV Q6H, PEPCID 20MG IV BID, PROTONIX 40MG IV BID, DILAUDID 1-2MG IV Q3H PRN, LOVENOX 40MG SC DAILY, AND ZOFRAN 4MG IV Q6H PRN. WE WILL ADD FLONASE 2 SPRAYS TO EACH NOSTRIL. WILL CONTINUE TO FOLLOW PATIENT. OTHERWISE, WE PLAN TO FOLLOW UP WITH AM LABS AND CONTINUE TO MONITOR. - Past Medical Family Social History Past Med/Fam/Surg Hx: No changes since H&P Allergies: Allergies No Known Drug Allergies Allergy (Verified 06/01/20 20:48) - Review of Systems ROS: No change since H&P - Vital Signs and I&O's Vital Signs: Temperature 98 F Pulse Rate [Bilateral Radial] 82 Pulse Rate 86 Respiratory Rate 18 Blood Pressure [Right Arm] 132/73 Blood Pressure [Left Arm] 127/66 Blood Pressure 119/54 O2 Sat by Pulse Oximetry 98 Intake and Output: Intake & Output 06/02/20 06/03/20 06/04/20 06/05/20 11:59 11:59 11:59 11:59 Intake Total 1198 / 1198 3293 / 3293 4832 / 4832 4261 / 4261 Output Total 1350 / 1350 4071 / 4071 3500 / 3500 1195 / 1195 Balance -152 / -152 -778 / -778 1332 / 1332 3066 / 3066 - Physical Exam Oriented: Normal Eyes: Normal Ear: Normal Nose: Normal Throat: Normal Respiratory: Normal Cardiovascular: Normal : Normal Auscultation: Bowel Sounds: Decreased Palpation: Normal Tenderness: Epigastric, Mild, Other (s/p colostomy, MULUGETA drain noted with serosa ngionous drainage) Skin: Decreased Turgur Musculoskeletal: Normal Psychiatric: Normal Mood Description: Calm Affect: Normal Speech Pattern: Clear, Appropriate - Laboratory and Diagnostics Result Diagrams: 06/05/20 04:09 06/05/20 04:09 Labs: 06/02/20 10:15 Peritoneal Fluid Wound Culture - Preliminary 06/02/20 10:15 Peritoneal Fluid Gram Stain - Final 06/02/20 10:15 Peritoneal Fluid Wound Culture - Final Escherichia Coli 06/01/20 21:05 Blood Blood Culture - Preliminary 06/01/20 21:03 Blood Blood Culture - Preliminary Laboratory WBC 9.0 X10^3/uL (3.6-10.0) 06/05/20 04:09 RBC 3.71 X10^6/uL (4.7-6.0) L 06/05/20 04:09 Hgb 11.6 g/dL (13.5-18.0) L 06/05/20 04:09 Hct 34.8 % (42.0-54.0) L 06/05/20 04:09 MCV 93.6 fL (80.0-100.0) 06/05/20 04:09 MCH 31.3 pg (27.0-34.0) 06/05/20 04:09 MCHC 33.4 g/dL (33.0-35.0) 06/05/20 04:09 RDW 13.8 % (11.6-16.5) 06/05/20 04:09 Plt Count 331 X10^3/uL (150.0-450.0) 06/05/20 04:09 Plt Count Comment Adequate (ADEQUATE) 06/02/20 04:07 MPV 7.2 fL (7.4-11.0) L 06/05/20 04:09 Neut % (Auto) 80.1 % (42.0-75.0) H 06/05/20 04:09 Lymph % (Auto) 9.5 % (21.0-51.0) L 06/05/20 04:09 [place] % (Auto) 6.6 % (0.0-13.0) 06/05/20 04:09 Eos % (Auto) 3.3 % (0.9-2.9) H 06/05/20 04:09 Baso % (Auto) 0.5 % (0.2-1.0) 06/05/20 04:09 Neut # (Auto) 7.2 x10^3/uL (2.2-4.8) H 06/05/20 04:09 Lymph # (Auto) 0.9 X10^3/uL (1.3-2.9) L 06/05/20 04:09 [place] # (Auto) 0.6 x10^3/uL (0.3-0.8) 06/05/20 04:09 Eos # (Auto) 0.3 x10^3/uL (0.0-0.2) H 06/05/20 04:09 Baso # (Auto) 0.0 X10^3/uL (0.0-0.1) 06/05/20 04:09 Absolute Nucleated RBC 0.0 /100WBC 06/05/20 04:09 Total Counted 100 06/02/20 04:07 Neutrophils % (Manual) 88 % (39-76) H 06/02/20 04:07 Band Neutrophils % 5 % (0-10) 06/02/20 04:07 Lymphocytes % (Manual) 2 % (13-43) L 06/02/20 04:07 Monocytes % (Manual) 5 % (4-9) 06/02/20 04:07 Plt Morphology Comment Normal (NORMAL) 06/02/20 04:07 RBC Morphology Normal (NORMAL) 06/02/20 04:07 PT 16.4 SECONDS (11.8-14.3) 06/01/20 21:03 INR Target Range - 06/01/20 21:03 INR 1.36 (0.8-1.3) H 06/01/20 21:03 Sodium 139 mmol/L (136-145) 06/05/20 04:09 Corrected Sodium TNP 06/05/20 04:09 Potassium 3.6 mmol/L (3.5-5.1) 06/05/20 04:09 Chloride 103 mmol/L (98-107) 06/05/20 04:09 Carbon Dioxide 27.8 mmol/L (21-32) 06/05/20 04:09 BUN 10 mg/dL (7-18) 06/05/20 04:09 Creatinine 0.79 mg/dL (0.70-1.30) 06/05/20 04:09 Est GFR (MDRD) Af Amer > 60 (>60) 06/05/20 04:09 Est GFR (MDRD) Non-Af > 60 (>60) 06/05/20 04:09 Glucose 90 mg/dL (65-99) 06/05/20 04:09 Lactic Acid 0.9 mmol/L (0.4-2.0) 06/01/20 21:03 Calcium 7.8 mg/dL (8.5-10.1) L 06/05/20 04:09 Corrected Calcium 9.6 mg/dL (8.5-10.1) 06/05/20 04:09 Total Bilirubin 0.40 mg/dL (0.2-1.0) 06/05/20 04:09 AST 22 Units/L (15-37) 06/05/20 04:09 ALT 18 Units/L (12-78) 06/05/20 04:09 Alkaline Phosphatase 50 Units/L (46-116) 06/05/20 04:09 Creatine Kinase 284 Units/L (39-308) 06/05/20 01:57 CK-MB (CK-2) < 1.0 ng/mL (0-4.0) 06/05/20 01:57 CK/CKMB % Calc 0.4 % (<4) 06/05/20 01:57 Troponin I < 0.02 ng/mL (0-1.5) 06/05/20 01:57 Total Protein 5.1 g/dL (6.4-8.2) L 06/05/20 04:09 Albumin 1.8 g/dL (3.4-5.0) L 06/05/20 04:09 Globulin 3.3 g/dL (2.5-4.5) 06/05/20 04:09 Albumin/Globulin Ratio 0.5 Ratio (1.1-2.1) L 06/05/20 04:09 Amylase 26 Units/L (25-115) 06/01/20 21:03 Lipase 74 Units/L (73-393) 06/01/20 21:03 Specimen Type Clean catch urine 06/01/20 22:18 Urine Color [place] (YELLOW) 06/01/20 22:18 Urine Appearance Clear (CLEAR) 06/01/20 22:18 Urine pH 5.0 (5.0 - 8.0) 06/01/20 22:18 Ur Specific [place] 1.025 (1.000-1.030) 06/01/20 22:18 Urine Protein 3+ (NEGATIVE) 06/01/20 22:18 Urine Glucose (UA) Negative (NEGATIVE) 06/01/20 22:18 Urine Ketones 2+ (NEGATIVE) 06/01/20 22:18 Urine Occult Blood 1+ (NEGATIVE) 06/01/20 22:18 Urine Nitrite Positive (NEGATIVE) 06/01/20 22:18 Urine Bilirubin 1+ (NEGATIVE) 06/01/20 22:18 Urine Urobilinogen 2+ (NORMAL) 06/01/20 22:18 Ur Leukocyte Esterase 1+ (NEGATIVE) 06/01/20 22:18 Urine RBC 0-2 /HPF (0-3) 06/01/20 22:18 Urine WBC 3-5 /HPF (0-5) 06/01/20 22:18 Ur Squamous Epith Cells Rare /HPF (NEGATIVE) 06/01/20 22:18 Amorphous Sediment Trace /HPF (NEGATIVE) 06/01/20 22:18 Urine Bacteria Trace /HPF (NEGATIVE) 06/01/20 22:18 Hyaline Casts Few /LPF (NEGATIVE) 06/01/20 22:18 Urine Mucus Numerous /HPF (NEGATIVE) 06/01/20 22:18 Ur Culture Indicated? No/not indicated 06/01/20 22:18 SARS CoV-2 RNA Rapid TANGELA Negative (NEGATIVE) 06/02/20 00:46 Tissue Pathology To follow 06/02/20 10:15 - Plan (1) Diverticulitis of intestine with perforation Status: Acute Qualifiers: Diverticulitis site: unspecified part of intestinal tract Diverticulitis bleeding: unspecified bleeding status Qualified Code(s): K57.80 - Diverticulitis of intestine, part unspecified, with perforation and abscess without bleeding (2) Status post Kathleen procedure Status: Acute
[2020-06-05] MEDS: FLONASE NASAL SPRAY ENOSTRIL SCH (10:04)
[2020-06-05] MEDS ORDERED: PHENERGAN INJ 25 MG IM PRN (13:23)
--- NOTE | 2020-06-05 16:52 | DR.PROGNOT ---
Hospital Progress Notes - Progress Note for Day of: Progress Note Date: 06/05/20 - Chief Complaint Chief Complaint: post op day 3 . c/o some nausea. good urine out put . passing flatus in colostomy bag . minimal drainage in MULUGETA. CBC and lytes are normal . afebrile - Past Medical Family Social History Past Med/Fam/Surg Hx: No changes since H&P Allergies: Allergies No Known Drug Allergies Allergy (Verified 06/01/20 20:48) - Review Of Systems ROS: No change since H&P - Vital Signs Vital Signs: Temperature 97.6 F Pulse Rate [Bilateral Radial] 80 Pulse Rate 86 Respiratory Rate 18 Blood Pressure [Right Arm] 130/73 Blood Pressure [Left Arm] 127/66 Blood Pressure 119/54 O2 Sat by Pulse Oximetry 99 - Physical Exam Oriented: Normal Eyes: Normal Ear: Normal Nose: Normal Throat: Normal Respiratory: Normal Cardiovascular: Normal : Normal GI:Auscultation: Decreased GI: Tenderness: Epigastric (moderate distention with hypoactive BS .. small amount of blood in colostomy bag ), Mild, Other (s/p colostomy, MULUGETA drain noted with serosangionous drainage) Skin: Decreased Turgur Musculoskeletal: Normal Psychiatric: Normal Mood Description: Calm Affect: Normal Speech Pattern: Clear, Appropriate - Laboratory and Diagnostics Result Diagrams: 06/05/20 04:09 06/05/20 04:09 Labs: 06/02/20 10:15 Peritoneal Fluid Wound Culture - Preliminary 06/02/20 10:15 Peritoneal Fluid Gram Stain - Final 06/02/20 10:15 Peritoneal Fluid Wound Culture - Final Escherichia Coli 06/01/20 21:05 Blood Blood Culture - Preliminary 06/01/20 21:03 Blood Blood Culture - Preliminary Laboratory WBC 9.0 X10^3/uL (3.6-10.0) 06/05/20 04:09 RBC 3.71 X10^6/uL (4.7-6.0) L 06/05/20 04:09 Hgb 11.6 g/dL (13.5-18.0) L 06/05/20 04:09 Hct 34.8 % (42.0-54.0) L 06/05/20 04:09 MCV 93.6 fL (80.0-100.0) 06/05/20 04:09 MCH 31.3 pg (27.0-34.0) 06/05/20 04:09 MCHC 33.4 g/dL (33.0-35.0) 06/05/20 04:09 RDW 13.8 % (11.6-16.5) 06/05/20 04:09 Plt Count 331 X10^3/uL (150.0-450.0) 06/05/20 04:09 Plt Count Comment Adequate (ADEQUATE) 06/02/20 04:07 MPV 7.2 fL (7.4-11.0) L 06/05/20 04:09 Neut % (Auto) 80.1 % (42.0-75.0) H 06/05/20 04:09 Lymph % (Auto) 9.5 % (21.0-51.0) L 06/05/20 04:09 [place] % (Auto) 6.6 % (0.0-13.0) 06/05/20 04:09 Eos % (Auto) 3.3 % (0.9-2.9) H 06/05/20 04:09 Baso % (Auto) 0.5 % (0.2-1.0) 06/05/20 04:09 Neut # (Auto) 7.2 x10^3/uL (2.2-4.8) H 06/05/20 04:09 Lymph # (Auto) 0.9 X10^3/uL (1.3-2.9) L 06/05/20 04:09 [place] # (Auto) 0.6 x10^3/uL (0.3-0.8) 06/05/20 04:09 Eos # (Auto) 0.3 x10^3/uL (0.0-0.2) H 06/05/20 04:09 Baso # (Auto) 0.0 X10^3/uL (0.0-0.1) 06/05/20 04:09 Absolute Nucleated RBC 0.0 /100WBC 06/05/20 04:09 Total Counted 100 06/02/20 04:07 Neutrophils % (Manual) 88 % (39-76) H 06/02/20 04:07 Band Neutrophils % 5 % (0-10) 06/02/20 04:07 Lymphocytes % (Manual) 2 % (13-43) L 06/02/20 04:07 Monocytes % (Manual) 5 % (4-9) 06/02/20 04:07 Plt Morphology Comment Normal (NORMAL) 06/02/20 04:07 RBC Morphology Normal (NORMAL) 06/02/20 04:07 PT 16.4 SECONDS (11.8-14.3) 06/01/20 21:03 INR Target Range - 06/01/20 21:03 INR 1.36 (0.8-1.3) H 06/01/20 21:03 Sodium 139 mmol/L (136-145) 06/05/20 04:09 Corrected Sodium TNP 06/05/20 04:09 Potassium 3.6 mmol/L (3.5-5.1) 06/05/20 04:09 Chloride 103 mmol/L (98-107) 06/05/20 04:09 Carbon Dioxide 27.8 mmol/L (21-32) 06/05/20 04:09 BUN 10 mg/dL (7-18) 06/05/20 04:09 Creatinine 0.79 mg/dL (0.70-1.30) 06/05/20 04:09 Est GFR (MDRD) Af Amer > 60 (>60) 06/05/20 04:09 Est GFR (MDRD) Non-Af > 60 (>60) 06/05/20 04:09 Glucose 90 mg/dL (65-99) 06/05/20 04:09 Lactic Acid 0.9 mmol/L (0.4-2.0) 06/01/20 21:03 Calcium 7.8 mg/dL (8.5-10.1) L 06/05/20 04:09 Corrected Calcium 9.6 mg/dL (8.5-10.1) 06/05/20 04:09 Total Bilirubin 0.40 mg/dL (0.2-1.0) 06/05/20 04:09 AST 22 Units/L (15-37) 06/05/20 04:09 ALT 18 Units/L (12-78) 06/05/20 04:09 Alkaline Phosphatase 50 Units/L (46-116) 06/05/20 04:09 Creatine Kinase 284 Units/L (39-308) 06/05/20 01:57 CK-MB (CK-2) < 1.0 ng/mL (0-4.0) 06/05/20 01:57 CK/CKMB % Calc 0.4 % (<4) 06/05/20 01:57 Troponin I < 0.02 ng/mL (0-1.5) 06/05/20 01:57 Total Protein 5.1 g/dL (6.4-8.2) L 06/05/20 04:09 Albumin 1.8 g/dL (3.4-5.0) L 06/05/20 04:09 Globulin 3.3 g/dL (2.5-4.5) 06/05/20 04:09 Albumin/Globulin Ratio 0.5 Ratio (1.1-2.1) L 06/05/20 04:09 Amylase 26 Units/L (25-115) 06/01/20 21:03 Lipase 74 Units/L (73-393) 06/01/20 21:03 Specimen Type Clean catch urine 06/01/20 22:18 Urine Color [place] (YELLOW) 06/01/20 22:18 Urine Appearance Clear (CLEAR) 06/01/20 22:18 Urine pH 5.0 (5.0 - 8.0) 06/01/20 22:18 Ur Specific [place] 1.025 (1.000-1.030) 06/01/20 22:18 Urine Protein 3+ (NEGATIVE) 06/01/20 22:18 Urine Glucose (UA) Negative (NEGATIVE) 06/01/20 22:18 Urine Ketones 2+ (NEGATIVE) 06/01/20 22:18 Urine Occult Blood 1+ (NEGATIVE) 06/01/20 22:18 Urine Nitrite Positive (NEGATIVE) 06/01/20 22:18 Urine Bilirubin 1+ (NEGATIVE) 06/01/20 22:18 Urine Urobilinogen 2+ (NORMAL) 06/01/20 22:18 Ur Leukocyte Esterase 1+ (NEGATIVE) 06/01/20 22:18 Urine RBC 0-2 /HPF (0-3) 06/01/20 22:18 Urine WBC 3-5 /HPF (0-5) 06/01/20 22:18 Ur Squamous Epith Cells Rare /HPF (NEGATIVE) 06/01/20 22:18 Amorphous Sediment Trace /HPF (NEGATIVE) 06/01/20 22:18 Urine Bacteria Trace /HPF (NEGATIVE) 06/01/20 22:18 Hyaline Casts Few /LPF (NEGATIVE) 06/01/20 22:18 Urine Mucus Numerous /HPF (NEGATIVE) 06/01/20 22:18 Ur Culture Indicated? No/not indicated 06/01/20 22:18 SARS CoV-2 RNA Rapid TANGELA Negative (NEGATIVE) 06/02/20 00:46 Tissue Pathology To follow 06/02/20 10:15 - Assessment and Plan 1: PO Velazquez's procedure fore ruptured diverticulitis and peritonitis . moderate ileus . same po care . DVT prophylaxis .IV ATB. on full liquid as tolerated. OOB with binder . - Problem Patient Problems: Patient Problems Status post Kathleen procedure (Acute) Z93.3 Diverticulitis of intestine with perforation (Acute) K57.80
[2020-06-06] MEDS: NS 1000 ML 1,000 ML IV SCH ×4 (03:04→17:55)
[2020-06-06] MEDS: FLAGYL IV PREMIX 500 MG BAG 500 MG/100 ML BAG IV SCH ×4 (03:05→21:14)
[2020-06-06] MEDS: ZOFRAN INJ 4 MG VIAL IVP PRN ×4 (03:21→20:00)
[2020-06-06] MEDS: DILAUDID INJ IVP PRN ×4 (03:21→20:00)
[2020-06-06] MEDS: ZOSYN VIAL 3.375 GRAMS 3.375 G in NS 100 ML IV + SPIKE MINIBAG* 100 ML IV SCH ×3 (05:54→21:16)
[2020-06-06 06:32] LABS: BASOPHILS % (AUTO) 0.3 % (0.2-1.0); EOSINOPHILS # (AUTO) 0.3 x10^3/uL (0.0-0.2); EOSINOPHILS % (AUTO) 4.1 % (0.9-2.9); HEMATOCRIT 35.5 % (42.0-54.0); HEMOGLOBIN 11.6 g/dL (13.5-18.0); LYMPHOCYTES # (AUTO) 0.8 X10^3/uL (1.3-2.9); LYMPHOCYTES % (AUTO) 11.5 % (21.0-51.0); MEAN CORPUSCULAR HEMOGLOBIN 30.6 pg (27.0-34.0); MEAN CORPUSCULAR HGB CONC 32.6 g/dL (33.0-35.0); MEAN CORPUSCULAR VOLUME 93.7 fL (80.0-100.0); MEAN PLATELET VOLUME 7.3 fL (7.4-11.0); MONOCYTES # (AUTO) 0.5 x10^3/uL (0.3-0.8); MONOCYTES % (AUTO) 7.4 % (0.0-13.0); NEUTROPHILS # (AUTO) 5.1 x10^3/uL (2.2-4.8); NEUTROPHILS % (AUTO) 76.7 % (42.0-75.0); PLATELET COUNT 331 X10^3/uL (150.0-450.0); RED BLOOD COUNT 3.79 X10^6/uL (4.7-6.0); RED CELL DISTRIBUTION WIDTH 13.8 % (11.6-16.5); WHITE BLOOD COUNT 6.7 X10^3/uL (3.6-10.0)
[2020-06-06 06:46] LABS: ALANINE AMINOTRANSFERASE 26 Units/L (12-78); ALBUMIN 1.7 g/dL (3.4-5.0); ALKALINE PHOSPHATASE 45 Units/L (46-116); ASPARTATE AMINO TRANSFERASE 32 Units/L (15-37); BLOOD UREA NITROGEN 7 mg/dL (7-18); CALCIUM 7.9 mg/dL (8.5-10.1); CARBON DIOXIDE 35.9 mmol/L (21-32); CHLORIDE 104 mmol/L (98-107); COR CA(FOR HYPOALB) 9.7 mg/dL (8.5-10.1); CREATININE 0.78 mg/dL (0.70-1.30); SODIUM 139 mmol/L (136-145); TOTAL PROTEIN 4.6 g/dL (6.4-8.2); eGFR NON BLACK RACES > 60 (>60)
[2020-06-06] MEDS: FLOMAX PO SCH (08:24)
[2020-06-06] MEDS: AYR NASAL DROPS SCH ×4 (08:24→21:14)
[2020-06-06] MEDS: FLONASE NASAL SPRAY ENOSTRIL SCH (08:25)
[2020-06-06] MEDS: PROTONIX INJ 40 MG VIAL IVP SCH ×2 (08:25→21:14)
[2020-06-06] MEDS: LOVENOX INJ 40 MG SYR SC SCH (08:25)
[2020-06-06] MEDS: ALBUMIN HUMAN 25%- 100 ML 100 ML IV SCH (10:30)
--- NOTE | 2020-06-06 10:32 | DR.PROGNOT ---
Hospital Progress Notes - Progress Note for Day of: Progress Note Date: 06/06/20 - Chief Complaint Chief Complaint: post op day 4. still c/o vausea . no vomiting. colostomy is functioning now . good urine out put . minimal drainage in MULUGETA. CBC and lytes are normal . afebrile - Past Medical Family Social History Past Med/Fam/Surg Hx: No changes since H&P Allergies: Allergies No Known Drug Allergies Allergy (Verified 06/01/20 20:48) - Review Of Systems ROS: No change since H&P - Vital Signs Vital Signs: Temperature 98.2 F Pulse Rate [Bilateral Radial] 79 Pulse Rate 97 Respiratory Rate 18 Blood Pressure [Right Arm] 129/75 Blood Pressure [Left Arm] 127/66 Blood Pressure 119/54 O2 Sat by Pulse Oximetry 99 - Physical Exam Oriented: Normal Eyes: Normal Ear: Normal Nose: Normal Throat: Normal Respiratory: Normal Cardiovascular: Normal : Normal GI:Auscultation: Decreased GI:Palpation: Normal GI: Tenderness: Epigastric (moderate distention with hypoactive BS .. ( dressing was changed )), Mild Skin: Decreased Turgur Musculoskeletal: Normal Psychiatric: Normal Mood Description: Calm Affect: Normal Speech Pattern: Clear, Appropriate - Laboratory and Diagnostics Result Diagrams: 06/06/20 05:53 06/06/20 05:53 Labs: 06/02/20 10:15 Peritoneal Fluid Wound Culture - Preliminary 06/02/20 10:15 Peritoneal Fluid Gram Stain - Final 06/02/20 10:15 Peritoneal Fluid Wound Culture - Final Escherichia Coli 06/01/20 21:05 Blood Blood Culture - Preliminary 06/01/20 21:03 Blood Blood Culture - Preliminary Laboratory WBC 6.7 X10^3/uL (3.6-10.0) 06/06/20 05:53 RBC 3.79 X10^6/uL (4.7-6.0) L 06/06/20 05:53 Hgb 11.6 g/dL (13.5-18.0) L 06/06/20 05:53 Hct 35.5 % (42.0-54.0) L 06/06/20 05:53 MCV 93.7 fL (80.0-100.0) 06/06/20 05:53 MCH 30.6 pg (27.0-34.0) 06/06/20 05:53 MCHC 32.6 g/dL (33.0-35.0) L 06/06/20 05:53 RDW 13.8 % (11.6-16.5) 06/06/20 05:53 Plt Count 331 X10^3/uL (150.0-450.0) 06/06/20 05:53 Plt Count Comment Adequate (ADEQUATE) 06/02/20 04:07 MPV 7.3 fL (7.4-11.0) L 06/06/20 05:53 Neut % (Auto) 76.7 % (42.0-75.0) H 06/06/20 05:53 Lymph % (Auto) 11.5 % (21.0-51.0) L 06/06/20 05:53 [place] % (Auto) 7.4 % (0.0-13.0) 06/06/20 05:53 Eos % (Auto) 4.1 % (0.9-2.9) H 06/06/20 05:53 Baso % (Auto) 0.3 % (0.2-1.0) 06/06/20 05:53 Neut # (Auto) 5.1 x10^3/uL (2.2-4.8) H 06/06/20 05:53 Lymph # (Auto) 0.8 X10^3/uL (1.3-2.9) L 06/06/20 05:53 [place] # (Auto) 0.5 x10^3/uL (0.3-0.8) 06/06/20 05:53 Eos # (Auto) 0.3 x10^3/uL (0.0-0.2) H 06/06/20 05:53 Baso # (Auto) 0.0 X10^3/uL (0.0-0.1) 06/06/20 05:53 Absolute Nucleated RBC 0.0 /100WBC 06/06/20 05:53 Total Counted 100 06/02/20 04:07 Neutrophils % (Manual) 88 % (39-76) H 06/02/20 04:07 Band Neutrophils % 5 % (0-10) 06/02/20 04:07 Lymphocytes % (Manual) 2 % (13-43) L 06/02/20 04:07 Monocytes % (Manual) 5 % (4-9) 06/02/20 04:07 Plt Morphology Comment Normal (NORMAL) 06/02/20 04:07 RBC Morphology Normal (NORMAL) 06/02/20 04:07 PT 16.4 SECONDS (11.8-14.3) 06/01/20 21:03 INR Target Range - 06/01/20 21:03 INR 1.36 (0.8-1.3) H 06/01/20 21:03 Sodium 139 mmol/L (136-145) 06/06/20 05:53 Corrected Sodium TNP 06/06/20 05:53 Potassium 3.9 mmol/L (3.5-5.1) 06/06/20 05:53 Chloride 104 mmol/L (98-107) 06/06/20 05:53 Carbon Dioxide 35.9 mmol/L (21-32) H 06/06/20 05:53 BUN 7 mg/dL (7-18) 06/06/20 05:53 Creatinine 0.78 mg/dL (0.70-1.30) 06/06/20 05:53 Est GFR (MDRD) Af Amer > 60 (>60) 06/06/20 05:53 Est GFR (MDRD) Non-Af > 60 (>60) 06/06/20 05:53 Glucose 100 mg/dL (65-99) H 06/06/20 05:53 Lactic Acid 0.9 mmol/L (0.4-2.0) 06/01/20 21:03 Calcium 7.9 mg/dL (8.5-10.1) L 06/06/20 05:53 Corrected Calcium 9.7 mg/dL (8.5-10.1) 06/06/20 05:53 Total Bilirubin 0.30 mg/dL (0.2-1.0) 06/06/20 05:53 AST 32 Units/L (15-37) 06/06/20 05:53 ALT 26 Units/L (12-78) 06/06/20 05:53 Alkaline Phosphatase 45 Units/L (46-116) L 06/06/20 05:53 Creatine Kinase 284 Units/L (39-308) 06/05/20 01:57 CK-MB (CK-2) < 1.0 ng/mL (0-4.0) 06/05/20 01:57 CK/CKMB % Calc 0.4 % (<4) 06/05/20 01:57 Troponin I < 0.02 ng/mL (0-1.5) 06/05/20 01:57 Total Protein 4.6 g/dL (6.4-8.2) L 06/06/20 05:53 Albumin 1.7 g/dL (3.4-5.0) L 06/06/20 05:53 Globulin 2.9 g/dL (2.5-4.5) 06/06/20 05:53 Albumin/Globulin Ratio 0.6 Ratio (1.1-2.1) L 06/06/20 05:53 Amylase 26 Units/L (25-115) 06/01/20 21:03 Lipase 74 Units/L (73-393) 06/01/20 21:03 Carcinoembryonic Ag 1.3 ng/mL (0.0-3.0) 06/03/20 05:30 Specimen Type Clean catch urine 06/01/20 22:18 Urine Color [place] (YELLOW) 06/01/20 22:18 Urine Appearance Clear (CLEAR) 06/01/20 22:18 Urine pH 5.0 (5.0 - 8.0) 06/01/20 22:18 Ur Specific [place] 1.025 (1.000-1.030) 06/01/20 22:18 Urine Protein 3+ (NEGATIVE) 06/01/20 22:18 Urine Glucose (UA) Negative (NEGATIVE) 06/01/20 22:18 Urine Ketones 2+ (NEGATIVE) 06/01/20 22:18 Urine Occult Blood 1+ (NEGATIVE) 06/01/20 22:18 Urine Nitrite Positive (NEGATIVE) 06/01/20 22:18 Urine Bilirubin 1+ (NEGATIVE) 06/01/20 22:18 Urine Urobilinogen 2+ (NORMAL) 06/01/20 22:18 Ur Leukocyte Esterase 1+ (NEGATIVE) 06/01/20 22:18 Urine RBC 0-2 /HPF (0-3) 06/01/20 22:18 Urine WBC 3-5 /HPF (0-5) 06/01/20 22:18 Ur Squamous Epith Cells Rare /HPF (NEGATIVE) 06/01/20 22:18 Amorphous Sediment Trace /HPF (NEGATIVE) 12/04/20 22:18 Urine Bacteria Trace /HPF (NEGATIVE) 06/01/20 22:18 Hyaline Casts Few /LPF (NEGATIVE) 06/01/20 22:18 Urine Mucus Numerous /HPF (NEGATIVE) 06/01/20 22:18 Ur Culture Indicated? No/not indicated 06/01/20 22:18 SARS CoV-2 RNA Rapid TANGELA Negative (NEGATIVE) 06/02/20 00:46 Tissue Pathology To follow 06/02/20 10:15 - Assessment and Plan 1: PO Velazquez's procedure for ruptured diverticulitis and peritonitis . still with moderate ileus . same po care . DVT prophylaxis .IV ATB. on full liquid as tolerated. MULUGETA was removed . OOB with binder . PT to ambulate - Problem Patient Problems: Patient Problems Status post Kathleen procedure (Acute) Z93.3 Diverticulitis of intestine with perforation (Acute) K57.80
--- NOTE | 2020-06-06 20:58 | PCM.PROG ---
Progress Note - Progress Note for Day of Date of Exam: 06/06/20 - Subjective Subjective: IS POST OP DAY 4 S/P EXPLORATORY LAP, LYSIS OF ADHESIONS, HARTMANS PROCEDURE WITH COLOSTOMY. TODAY, HE IS ALERT AND ORIENTED, LYING IN BED ON MORNING ROUNDS. HE CONTINUES WITH MILD ABDOMINAL PAIN AND NAUSEA TODAY. ON EXAMINATION, HEART IS REGULAR IN RATE AND RHYTHM. BILATERAL LUNGS ARE NOTED WITH DIMINISHED LUNG SOUNDS THROUGHOUT. ABDOMEN IS ROUND AND NOTED WITH DIFFUSE TENDERNESS. MULUGETA DRAIN NOTED WITH MINIMAL DRAINAGE. HIS COLOSTOMY IS FUNCTIONING. HIS VITALS THIS MORNING ARE: 98.2-79-16-99%NC-129/75. LABS WERE OBTAINED. ABNORMAL LAB VALUES INCLUDE THE FOLLOWING: RBC 3.79, HGB 11.6, HCT 35.5, CARBON DIOXIDE 35.9, GLUCOSE 100, CALCIUM 7.9, ALK PHOS 45, TOTAL PROTEIN 4.6, ALBUMIN 1.7. BLOOD CULTURES ARE PENDING. PERITONEAL FLUID CULTURE IS POSITIVE FOR E.COLI. HE IS CURRENTLY RECEIVING NS AT 125 ML/HR, ZOSYN 3.375G IV TID, FLAGYL 500MG IV Q6H, PEPCID 20MG IV BID, PROTONIX 40MG IV BID, DILAUDID 1- 2MG IV Q3H PRN, LOVENOX 40MG SC DAILY, AND ZOFRAN 4MG IV Q6H PRN. TODAY, WE WILL ADD ALBUMIN 25% IV DAILY. WILL CONTINUE TO FOLLOW PATIENT. OTHERWISE, WE PLAN TO FOLLOW UP WITH AM LABS AND CONTINUE TO MONITOR. - Past Medical Family Social History Past Med/Fam/Surg Hx: No changes since H&P Allergies: Allergies No Known Drug Allergies Allergy (Verified 06/01/20 20:48) - Review of Systems ROS: No change since H&P - Vital Signs and I&O's Vital Signs: Temperature 98.1 F Pulse Rate [Bilateral Radial] 84 Pulse Rate 97 Respiratory Rate 18 Blood Pressure [Right Arm] 130/68 Blood Pressure [Left Arm] 127/66 Blood Pressure 119/54 O2 Sat by Pulse Oximetry 96 Intake and Output: Intake & Output 06/04/20 06/05/20 06/06/20 06/07/20 11:59 11:59 11:59 11:59 Intake Total 4832 / 4832 4261 / 4261 4460 / 4460 2120 / 2120 Output Total 3500 / 3500 1195 / 1195 2035 / 2035 1250 / 1250 Balance 1332 / 1332 3066 / 3066 2425 / 2425 870 / 870 - Physical Exam Oriented: Normal Eyes: Normal Ear: Normal Nose: Normal Throat: Normal Respiratory: Normal Cardiovascular: Normal : Normal Auscultation: Bowel Sounds: Decreased Tenderness: Epigastric (moderate distention with hypoactive BS .. ( dressing was changed )), Mild Skin: Decreased Turgur Musculoskeletal: Normal Psychiatric: Normal Mood Description: Calm Affect: Normal Speech Pattern: Clear, Appropriate - Laboratory and Diagnostics Result Diagrams: 06/06/20 05:53 06/06/20 05:53 Labs: 06/02/20 10:15 Peritoneal Fluid Wound Culture - Preliminary 06/02/20 10:15 Peritoneal Fluid Gram Stain - Final 06/02/20 10:15 Peritoneal Fluid Wound Culture - Final Escherichia Coli 06/01/20 21:05 Blood Blood Culture - Preliminary 06/01/20 21:03 Blood Blood Culture - Preliminary Laboratory WBC 6.7 X10^3/uL (3.6-10.0) 06/06/20 05:53 RBC 3.79 X10^6/uL (4.7-6.0) L 06/06/20 05:53 Hgb 11.6 g/dL (13.5-18.0) L 06/06/20 05:53 Hct 35.5 % (42.0-54.0) L 06/06/20 05:53 MCV 93.7 fL (80.0-100.0) 06/06/20 05:53 MCH 30.6 pg (27.0-34.0) 06/06/20 05:53 MCHC 32.6 g/dL (33.0-35.0) L 06/06/20 05:53 RDW 13.8 % (11.6-16.5) 06/06/20 05:53 Plt Count 331 X10^3/uL (150.0-450.0) 06/06/20 05:53 Plt Count Comment Adequate (ADEQUATE) 06/02/20 04:07 MPV 7.3 fL (7.4-11.0) L 06/06/20 05:53 Neut % (Auto) 76.7 % (42.0-75.0) H 06/06/20 05:53 Lymph % (Auto) 11.5 % (21.0-51.0) L 06/06/20 05:53 [place] % (Auto) 7.4 % (0.0-13.0) 06/06/20 05:53 Eos % (Auto) 4.1 % (0.9-2.9) H 06/06/20 05:53 Baso % (Auto) 0.3 % (0.2-1.0) 06/06/20 05:53 Neut # (Auto) 5.1 x10^3/uL (2.2-4.8) H 06/06/20 05:53 Lymph # (Auto) 0.8 X10^3/uL (1.3-2.9) L 06/06/20 05:53 [place] # (Auto) 0.5 x10^3/uL (0.3-0.8) 06/06/20 05:53 Eos # (Auto) 0.3 x10^3/uL (0.0-0.2) H 06/06/20 05:53 Baso # (Auto) 0.0 X10^3/uL (0.0-0.1) 06/06/20 05:53 Absolute Nucleated RBC 0.0 /100WBC 06/06/20 05:53 Total Counted 100 06/02/20 04:07 Neutrophils % (Manual) 88 % (39-76) H 06/02/20 04:07 Band Neutrophils % 5 % (0-10) 06/02/20 04:07 Lymphocytes % (Manual) 2 % (13-43) L 06/02/20 04:07 Monocytes % (Manual) 5 % (4-9) 06/02/20 04:07 Plt Morphology Comment Normal (NORMAL) 06/02/20 04:07 RBC Morphology Normal (NORMAL) 06/02/20 04:07 PT 16.4 SECONDS (11.8-14.3) 06/01/20 21:03 INR Target Range - 06/01/20 21:03 INR 1.36 (0.8-1.3) H 06/01/20 21:03 Sodium 139 mmol/L (136-145) 06/06/20 05:53 Corrected Sodium TNP 06/06/20 05:53 Potassium 3.9 mmol/L (3.5-5.1) 06/06/20 05:53 Chloride 104 mmol/L (98-107) 06/06/20 05:53 Carbon Dioxide 35.9 mmol/L (21-32) H 06/06/20 05:53 BUN 7 mg/dL (7-18) 06/06/20 05:53 Creatinine 0.78 mg/dL (0.70-1.30) 06/06/20 05:53 Est GFR (MDRD) Af Amer > 60 (>60) 06/06/20 05:53 Est GFR (MDRD) Non-Af > 60 (>60) 06/06/20 05:53 Glucose 100 mg/dL (65-99) H 06/06/20 05:53 Lactic Acid 0.9 mmol/L (0.4-2.0) 06/01/20 21:03 Calcium 7.9 mg/dL (8.5-10.1) L 06/06/20 05:53 Corrected Calcium 9.7 mg/dL (8.5-10.1) 06/06/20 05:53 Total Bilirubin 0.30 mg/dL (0.2-1.0) 06/06/20 05:53 AST 32 Units/L (15-37) 06/06/20 05:53 ALT 26 Units/L (12-78) 06/06/20 05:53 Alkaline Phosphatase 45 Units/L (46-116) L 06/06/20 05:53 Creatine Kinase 284 Units/L (39-308) 06/05/20 01:57 CK-MB (CK-2) < 1.0 ng/mL (0-4.0) 06/05/20 01:57 CK/CKMB % Calc 0.4 % (<4) 06/05/20 01:57 Troponin I < 0.02 ng/mL (0-1.5) 06/05/20 01:57 Total Protein 4.6 g/dL (6.4-8.2) L 06/06/20 05:53 Albumin 1.7 g/dL (3.4-5.0) L 06/06/20 05:53 Globulin 2.9 g/dL (2.5-4.5) 06/06/20 05:53 Albumin/Globulin Ratio 0.6 Ratio (1.1-2.1) L 06/06/20 05:53 Amylase 26 Units/L (25-115) 06/01/20 21:03 Lipase 74 Units/L (73-393) 06/01/20 21:03 Carcinoembryonic Ag 1.3 ng/mL (0.0-3.0) 06/03/20 05:30 Specimen Type Clean catch urine 06/01/20 22:18 Urine Color [place] (YELLOW) 06/01/20 22:18 Urine Appearance Clear (CLEAR) 06/01/20 22:18 Urine pH 5.0 (5.0 - 8.0) 06/01/20 22:18 Ur Specific [place] 1.025 (1.000-1.030) 06/01/20 22:18 Urine Protein 3+ (NEGATIVE) 06/01/20 22:18 Urine Glucose (UA) Negative (NEGATIVE) 06/01/20 22:18 Urine Ketones 2+ (NEGATIVE) 06/01/20 22:18 Urine Occult Blood 1+ (NEGATIVE) 06/01/20 22:18 Urine Nitrite Positive (NEGATIVE) 06/01/20 22:18 Urine Bilirubin 1+ (NEGATIVE) 06/01/20 22:18 Urine Urobilinogen 2+ (NORMAL) 06/01/20 22:18 Ur Leukocyte Esterase 1+ (NEGATIVE) 06/01/20 22:18 Urine RBC 0-2 /HPF (0-3) 06/01/20 22:18 Urine WBC 3-5 /HPF (0-5) 06/01/20 22:18 Ur Squamous Epith Cells Rare /HPF (NEGATIVE) 06/01/20 22:18 Amorphous Sediment Trace /HPF (NEGATIVE) 06/01/20 22:18 Urine Bacteria Trace /HPF (NEGATIVE) 06/01/20 22:18 Hyaline Casts Few /LPF (NEGATIVE) 06/01/20 22:18 Urine Mucus Numerous /HPF (NEGATIVE) 06/01/20 22:18 Ur Culture Indicated? No/not indicated 06/01/20 22:18 SARS CoV-2 RNA Rapid TANGELA Negative (NEGATIVE) 06/02/20 00:46 Tissue Pathology To follow 06/02/20 10:15 - Plan (1) Diverticulitis of intestine with perforation Status: Acute Qualifiers: Diverticulitis site: unspecified part of intestinal tract Diverticulitis bleeding: unspecified bleeding status Qualified Code(s): K57.80 - Diverti culitis of intestine, part unspecified, with perforation and abscess without bleeding (2) Status post Kathleen procedure Status: Acute
[2020-06-07] MEDS: FLAGYL IV PREMIX 500 MG BAG 500 MG/100 ML BAG IV SCH ×4 (03:45→21:30)
[2020-06-07] MEDS: ZOFRAN INJ 4 MG VIAL IVP PRN ×4 (03:45→21:30)
[2020-06-07] MEDS: DILAUDID INJ IVP PRN ×2 (03:45→09:46)
[2020-06-07] MEDS: NS 1000 ML 1,000 ML IV SCH ×4 (05:36→22:08)
[2020-06-07] MEDS: ZOSYN VIAL 3.375 GRAMS 3.375 G in NS 100 ML IV + SPIKE MINIBAG* 100 ML IV SCH ×3 (06:09→22:09)
[2020-06-07 06:24] LABS: BASOPHILS % (AUTO) 0.5 % (0.2-1.0); EOSINOPHILS # (AUTO) 0.2 x10^3/uL (0.0-0.2); EOSINOPHILS % (AUTO) 3.8 % (0.9-2.9); HEMATOCRIT 35.1 % (42.0-54.0); HEMOGLOBIN 11.8 g/dL (13.5-18.0); LYMPHOCYTES # (AUTO) 0.6 X10^3/uL (1.3-2.9); LYMPHOCYTES % (AUTO) 11.9 % (21.0-51.0); MEAN CORPUSCULAR HEMOGLOBIN 31.2 pg (27.0-34.0); MEAN CORPUSCULAR HGB CONC 33.6 g/dL (33.0-35.0); MEAN CORPUSCULAR VOLUME 93.1 fL (80.0-100.0); MEAN PLATELET VOLUME 7.3 fL (7.4-11.0); MONOCYTES # (AUTO) 0.4 x10^3/uL (0.3-0.8); MONOCYTES % (AUTO) 7.9 % (0.0-13.0); NEUTROPHILS # (AUTO) 3.9 x10^3/uL (2.2-4.8); NEUTROPHILS % (AUTO) 75.9 % (42.0-75.0); PLATELET COUNT 320 X10^3/uL (150.0-450.0); RED BLOOD COUNT 3.77 X10^6/uL (4.7-6.0); RED CELL DISTRIBUTION WIDTH 13.7 % (11.6-16.5); WHITE BLOOD COUNT 5.2 X10^3/uL (3.6-10.0)
[2020-06-07 06:38] LABS: ALANINE AMINOTRANSFERASE 56 Units/L (12-78); ALBUMIN 1.9 g/dL (3.4-5.0); ALKALINE PHOSPHATASE 62 Units/L (46-116); ASPARTATE AMINO TRANSFERASE 76 Units/L (15-37); BLOOD UREA NITROGEN 5 mg/dL (7-18); CALCIUM 7.6 mg/dL (8.5-10.1); CARBON DIOXIDE 33.6 mmol/L (21-32); CHLORIDE 104 mmol/L (98-107); COR CA(FOR HYPOALB) 9.3 mg/dL (8.5-10.1); CREATININE 0.66 mg/dL (0.70-1.30); SODIUM 140 mmol/L (136-145); TOTAL PROTEIN 4.7 g/dL (6.4-8.2); eGFR NON BLACK RACES > 60 (>60)
--- NOTE | 2020-06-07 07:06 | DR.PROGNOT ---
Hospital Progress Notes - Progress Note for Day of: Progress Note Date: 06/07/20 - Chief Complaint Chief Complaint: post op day 5. less nausea today. colostomy is functioning now . good urine out put . mild drainage from the lower incision . - Past Medical Family Social History Past Med/Fam/Surg Hx: No changes since H&P Allergies: Allergies No Known Drug Allergies Allergy (Verified 06/01/20 20:48) - Review Of Systems ROS: No change since H&P - Vital Signs Vital Signs: Temperature 97.5 F Pulse Rate [Bilateral Radial] 76 Pulse Rate 97 Respiratory Rate 18 Blood Pressure [Right Arm] 124/73 Blood Pressure [Left Arm] 127/66 Blood Pressure 119/54 O2 Sat by Pulse Oximetry 99 - Physical Exam Oriented: Normal Eyes: Normal Ear: Normal Nose: Normal Throat: Normal Respiratory: Normal Cardiovascular: Normal : Normal GI:Auscultation: Decreased GI:Palpation: Normal GI: Tenderness: Epigastric (moderate distention with hypoactive BS .. ( dressing was changed )), Mild Skin: Decreased Turgur Musculoskeletal: Normal Psychiatric: Normal Mood Description: Calm Affect: Normal Speech Pattern: Clear, Appropriate - Laboratory and Diagnostics Result Diagrams: 06/07/20 05:35 06/07/20 05:35 Labs: 06/02/20 10:15 Peritoneal Fluid Wound Culture - Final 06/01/20 21:05 Blood Blood Culture - Final 06/01/20 21:03 Blood Blood Culture - Final 06/02/20 10:15 Peritoneal Fluid Gram Stain - Final 06/02/20 10:15 Peritoneal Fluid Wound Culture - Final Escherichia Coli Laboratory WBC 5.2 X10^3/uL (3.6-10.0) 06/07/20 05:35 RBC 3.77 X10^6/uL (4.7-6.0) L 06/07/20 05:35 Hgb 11.8 g/dL (13.5-18.0) L 06/07/20 05:35 Hct 35.1 % (42.0-54.0) L 06/07/20 05:35 MCV 93.1 fL (80.0-100.0) 06/07/20 05:35 MCH 31.2 pg (27.0-34.0) 06/07/20 05:35 MCHC 33.6 g/dL (33.0-35.0) 06/07/20 05:35 RDW 13.7 % (11.6-16.5) 06/07/20 05:35 Plt Count 320 X10^3/uL (150.0-450.0) 06/07/20 05:35 Plt Count Comment Adequate (ADEQUATE) 06/02/20 04:07 MPV 7.3 fL (7.4-11.0) L 06/07/20 05:35 Neut % (Auto) 75.9 % (42.0-75.0) H 06/07/20 05:35 Lymph % (Auto) 11.9 % (21.0-51.0) L 06/07/20 05:35 [place] % (Auto) 7.9 % (0.0-13.0) 06/07/20 05:35 Eos % (Auto) 3.8 % (0.9-2.9) H 06/07/20 05:35 Baso % (Auto) 0.5 % (0.2-1.0) 06/07/20 05:35 Neut # (Auto) 3.9 x10^3/uL (2.2-4.8) 06/07/20 05:35 Lymph # (Auto) 0.6 X10^3/uL (1.3-2.9) L 06/07/20 05:35 [place] # (Auto) 0.4 x10^3/uL (0.3-0.8) 06/07/20 05:35 Eos # (Auto) 0.2 x10^3/uL (0.0-0.2) 06/07/20 05:35 Baso # (Auto) 0.0 X10^3/uL (0.0-0.1) 06/07/20 05:35 Absolute Nucleated RBC 0.2 /100WBC 06/07/20 05:35 Total Counted 100 06/02/20 04:07 Neutrophils % (Manual) 88 % (39-76) H 06/02/20 04:07 Band Neutrophils % 5 % (0-10) 06/02/20 04:07 Lymphocytes % (Manual) 2 % (13-43) L 06/02/20 04:07 Monocytes % (Manual) 5 % (4-9) 06/02/20 04:07 Plt Morphology Comment Normal (NORMAL) 06/02/20 04:07 RBC Morphology Normal (NORMAL) 06/02/20 04:07 PT 16.4 SECONDS (11.8-14.3) 06/01/20 21:03 INR Target Range - 06/01/20 21:03 INR 1.36 (0.8-1.3) H 06/01/20 21:03 Sodium 140 mmol/L (136-145) 06/07/20 05:35 Corrected Sodium TNP 06/07/20 05:35 Potassium 3.5 mmol/L (3.5-5.1) 06/07/20 05:35 Chloride 104 mmol/L (98-107) 06/07/20 05:35 Carbon Dioxide 33.6 mmol/L (21-32) H 06/07/20 05:35 BUN 5 mg/dL (7-18) L 06/07/20 05:35 Creatinine 0.66 mg/dL (0.70-1.30) L 06/07/20 05:35 Est GFR (MDRD) Af Amer > 60 (>60) 06/07/20 05:35 Est GFR (MDRD) Non-Af > 60 (>60) 06/07/20 05:35 Glucose 102 mg/dL (65-99) H 06/07/20 05:35 Lactic Acid 0.9 mmol/L (0.4-2.0) 06/01/20 21:03 Calcium 7.6 mg/dL (8.5-10.1) L 06/07/20 05:35 Corrected Calcium 9.3 mg/dL (8.5-10.1) 06/07/20 05:35 Total Bilirubin 0.30 mg/dL (0.2-1.0) 06/07/20 05:35 AST 76 Units/L (15-37) H 06/07/20 05:35 ALT 56 Units/L (12-78) 06/07/20 05:35 Alkaline Phosphatase 62 Units/L (46-116) 06/07/20 05:35 Creatine Kinase 284 Units/L (39-308) 06/05/20 01:57 CK-MB (CK-2) < 1.0 ng/mL (0-4.0) 06/05/20 01:57 CK/CKMB % Calc 0.4 % (<4) 06/05/20 01:57 Troponin I < 0.02 ng/mL (0-1.5) 06/05/20 01:57 Total Protein 4.7 g/dL (6.4-8.2) L 06/07/20 05:35 Albumin 1.9 g/dL (3.4-5.0) L 06/07/20 05:35 Globulin 2.8 g/dL (2.5-4.5) 06/07/20 05:35 Albumin/Globulin Ratio 0.7 Ratio (1.1-2.1) L 06/07/20 05:35 Amylase 26 Units/L (25-115) 06/01/20 21:03 Lipase 74 Units/L (73-393) 06/01/20 21:03 Carcinoembryonic Ag 1.3 ng/mL (0.0-3.0) 06/03/20 05:30 Specimen Type Clean catch urine 06/01/20 22:18 Urine Color Claud[place] (YELLOW) 06/01/20 22:18 Urine Appearance Clear (CLEAR) 06/01/20 22:18 Urine pH 5.0 (5.0 - 8.0) 06/01/20 22:18 Ur Specific [place] 1.025 (1.000-1.030) 06/01/20 22:18 Urine Protein 3+ (NEGATIVE) 06/01/20 22:18 Urine Glucose (UA) Negative (NEGATIVE) 06/01/20 22:18 Urine Ketones 2+ (NEGATIVE) 06/01/20 22:18 Urine Occult Blood 1+ (NEGATIVE) 06/01/20 22:18 Urine Nitrite Positive (NEGATIVE) 06/01/20 22:18 Urine Bilirubin 1+ (NEGATIVE) 06/01/20 22:18 Urine Urobilinogen 2+ (NORMAL) 06/01/20 22:18 Ur Leukocyte Esterase 1+ (NEGATIVE) 06/01/20 22:18 Urine RBC 0-2 /HPF (0-3) 06/01/20 22:18 Urine WBC 3-5 /HPF (0-5) 06/01/20 22:18 Ur Squamous Epith Cells Rare /HPF (NEGATIVE) 06/01/20 22:18 Amorphous Sediment Trace /HPF (NEGATIVE) 06/01/20 22:18 Urine Bacteria Trace /HPF (NEGATIVE) 06/01/20 22:18 Hyaline Casts Few /LPF (NEGATIVE) 06/01/20 22:18 Urine Mucus Numerous /HPF (NEGATIVE) 06/01/20 22:18 Ur Culture Indicated? No/not indicated 06/01/20 22:18 SARS CoV-2 RNA Rapid TANGELA Negative (NEGATIVE) 06/02/20 00:46 Tissue Pathology To follow 06/02/20 10:15 - Assessment and Plan 1: PO Velazquez's procedure for ruptured diverticulitis and peritonitis . still with moderate ileus . same po care . DVT prophylaxis .IV ATB. on full liquid as tolerated. OOB with binder . - Problem Patient Problems: Patient Problems Status post Kathleen procedure (Acute) Z93.3 Diverticulitis of intestine with perforation (Acute) K57.80
[2020-06-07] MEDS: PROTONIX INJ 40 MG VIAL IVP SCH ×2 (09:22→21:30)
[2020-06-07] MEDS: FLOMAX PO SCH (09:22)
[2020-06-07] MEDS: ALBUMIN HUMAN 25%- 100 ML 100 ML IV SCH (09:23)
[2020-06-07] MEDS: FLONASE NASAL SPRAY ENOSTRIL SCH (09:24)
[2020-06-07] MEDS: AYR NASAL DROPS SCH ×4 (09:24→22:08)
[2020-06-07] MEDS: LOVENOX INJ 40 MG SYR SC SCH (09:47)
[2020-06-07] MEDS: PERCOCET TAB 5/325 MG PO PRN ×2 (16:18→22:13)
--- NOTE | 2020-06-07 22:04 | PCM.PROG ---
Progress Note - Progress Note for Day of Date of Exam: 06/07/20 - Subjective Subjective: IS POST OP DAY 5 S/P EXPLORATORY LAP, LYSIS OF ADHESIONS, HARTMANS PROCEDURE WITH COLOSTOMY. TODAY, HE IS ALERT AND ORIENTED, LYING IN BED ON MORNING ROUNDS. HE CONTINUES WITH MILD ABDOMINAL PAIN AND NAUSEA TODAY. ABDOMINAL PAIN HAS SLIGHTLY IMPROVED. ON EXAMINATION, HEART IS REGULAR IN RATE AND RHYTHM. BILATERAL LUNGS ARE NOTED WITH DIMINISHED LUNG SOUNDS THROUGHOUT. ABDOMEN IS ROUND AND NOTED WITH DIFFUSE TENDERNESS. HIS COLOSTOMY IS FUNCTIONING. HIS VITALS THIS MORNING ARE: 97.8-87-20-92%NC-128/64. LABS WERE OBTAINED. ABNORMAL LAB VALUES INCLUDE THE FOLLOWING: RBC 3.77, HGB 11.8, HCT 35.1, CARBON DIOXIDE 33.6, BUN 5, CREATININE 0.66, GLUCOSE 102, CALCIUM 7.6, AST 76, TOTAL PROTEIN 4.7, ALBUMIN 1.9. BLOOD CULTURES ARE NEGATIVE. PERITONEAL FLUID CULTURE IS POSITIVE FOR E.COLI. HE IS CURRENTLY RECEIVING NS AT 125 ML/HR, ZOSYN 3.375G IV TID, FLAGYL 500MG IV Q6H, ALBUMIN 25% IV DAILY, PEPCID 20MG IV BID, PROTONIX 40MG IV BID, DILAUDID 1-2MG IV Q3H PRN, LOVENOX 40MG SC DAILY, AND ZOFRAN 4MG IV Q6H PRN. WILL CONTINUE TO FOLLOW PATIENT. OTHERWISE, WE PLAN TO FOLLOW UP WITH AM LABS AND CONTINUE TO MONITOR. - Past Medical Family Social History Past Med/Fam/Surg Hx: No changes since H&P Allergies: Allergies No Known Drug Allergies Allergy (Verified 06/01/20 20:48) - Review of Systems ROS: No change since H&P - Vital Signs and I&O's Vital Signs: Temperature 98.1 F Pulse Rate [Bilateral Radial] 85 Pulse Rate 97 Respiratory Rate 18 Blood Pressure [Right Arm] 145/77 Blood Pressure [Left Arm] 127/66 Blood Pressure 119/54 O2 Sat by Pulse Oximetry 92 Intake and Output: Intake & Output 06/05/20 06/06/20 06/07/20 06/08/20 11:59 11:59 11:59 11:59 Intake Total 4261 / 4261 4460 / 4460 4965 / 4965 940 / 940 Output Total 1195 / 1195 2035 / 2035 4000 / 4000 600 / 600 Balance 3066 / 3066 2425 / 2425 965 / 965 340 / 340 - Physical Exam Oriented: Normal Eyes: Normal Ear: Normal Nose: Normal Throat: Normal Respiratory: Normal Cardiovascular: Normal : Normal Auscultation: Bowel Sounds: Decreased Tenderness: Epigastric (moderate distention with hypoactive BS .. ( dressing was changed )), Mild Skin: Decreased Turgur Musculoskeletal: Normal Psychiatric: Normal Mood Description: Calm Affect: Normal Speech Pattern: Clear, Appropriate - Laboratory and Diagnostics Result Diagrams: 06/07/20 05:35 06/07/20 05:35 Labs: 06/02/20 10:15 Peritoneal Fluid Wound Culture - Final 06/01/20 21:05 Blood Blood Culture - Final 06/01/20 21:03 Blood Blood Culture - Final 06/02/20 10:15 Peritoneal Fluid Gram Stain - Final 06/02/20 10:15 Peritoneal Fluid Wound Culture - Final Escherichia Coli Laboratory WBC 5.2 X10^3/uL (3.6-10.0) 06/07/20 05:35 RBC 3.77 X10^6/uL (4.7-6.0) L 06/07/20 05:35 Hgb 11.8 g/dL (13.5-18.0) L 06/07/20 05:35 Hct 35.1 % (42.0-54.0) L 06/07/20 05:35 MCV 93.1 fL (80.0-100.0) 06/07/20 05:35 MCH 31.2 pg (27.0-34.0) 06/07/20 05:35 MCHC 33.6 g/dL (33.0-35.0) 06/07/20 05:35 RDW 13.7 % (11.6-16.5) 06/07/20 05:35 Plt Count 320 X10^3/uL (150.0-450.0) 06/07/20 05:35 Plt Count Comment Adequate (ADEQUATE) 06/02/20 04:07 MPV 7.3 fL (7.4-11.0) L 06/07/20 05:35 Neut % (Auto) 75.9 % (42.0-75.0) H 06/07/20 05:35 Lymph % (Auto) 11.9 % (21.0-51.0) L 06/07/20 05:35 [place] % (Auto) 7.9 % (0.0-13.0) 06/07/20 05:35 Eos % (Auto) 3.8 % (0.9-2.9) H 06/07/20 05:35 Baso % (Auto) 0.5 % (0.2-1.0) 06/07/20 05:35 Neut # (Auto) 3.9 x10^3/uL (2.2-4.8) 06/07/20 05:35 Lymph # (Auto) 0.6 X10^3/uL (1.3-2.9) L 06/07/20 05:35 [place] # (Auto) 0.4 x10^3/uL (0.3-0.8) 06/07/20 05:35 Eos # (Auto) 0.2 x10^3/uL (0.0-0.2) 06/07/20 05:35 Baso # (Auto) 0.0 X10^3/uL (0.0-0.1) 06/07/20 05:35 Absolute Nucleated RBC 0.2 /100WBC 06/07/20 05:35 Total Counted 100 06/02/20 04:07 Neutrophils % (Manual) 88 % (39-76) H 06/02/20 04:07 Band Neutrophils % 5 % (0-10) 06/02/20 04:07 Lymphocytes % (Manual) 2 % (13-43) L 06/02/20 04:07 Monocytes % (Manual) 5 % (4-9) 06/02/20 04:07 Plt Morphology Comment Normal (NORMAL) 06/02/20 04:07 RBC Morphology Normal (NORMAL) 06/02/20 04:07 PT 16.4 SECONDS (11.8-14.3) 06/01/20 21:03 INR Target Range - 06/01/20 21:03 INR 1.36 (0.8-1.3) H 06/01/20 21:03 Sodium 140 mmol/L (136-145) 06/07/20 05:35 Corrected Sodium TNP 06/07/20 05:35 Potassium 3.5 mmol/L (3.5-5.1) 06/07/20 05:35 Chloride 104 mmol/L (98-107) 06/07/20 05:35 Carbon Dioxide 33.6 mmol/L (21-32) H 06/07/20 05:35 BUN 5 mg/dL (7-18) L 06/07/20 05:35 Creatinine 0.66 mg/dL (0.70-1.30) L 06/07/20 05:35 Est GFR (MDRD) Af Amer > 60 (>60) 06/07/20 05:35 Est GFR (MDRD) Non-Af > 60 (>60) 06/07/20 05:35 Glucose 102 mg/dL (65-99) H 06/07/20 05:35 Lactic Acid 0.9 mmol/L (0.4-2.0) 06/01/20 21:03 Calcium 7.6 mg/dL (8.5-10.1) L 06/07/20 05:35 Corrected Calcium 9.3 mg/dL (8.5-10.1) 06/07/20 05:35 Total Bilirubin 0.30 mg/dL (0.2-1.0) 06/07/20 05:35 AST 76 Units/L (15-37) H 06/07/20 05:35 ALT 56 Units/L (12-78) 06/07/20 05:35 Alkaline Phosphatase 62 Units/L (46-116) 06/07/20 05:35 Creatine Kinase 284 Units/L (39-308) 06/05/20 01:57 CK-MB (CK-2) < 1.0 ng/mL (0-4.0) 06/05/20 01:57 CK/CKMB % Calc 0.4 % (<4) 06/05/20 01:57 Troponin I < 0.02 ng/mL (0-1.5) 06/05/20 01:57 Total Protein 4.7 g/dL (6.4-8.2) L 06/07/20 05:35 Albumin 1.9 g/dL (3.4-5.0) L 06/07/20 05:35 Globulin 2.8 g/dL (2.5-4.5) 06/07/20 05:35 Albumin/Globulin Ratio 0.7 Ratio (1.1-2.1) L 06/07/20 05:35 Amylase 26 Units/L (25-115) 06/01/20 21:03 Lipase 74 Units/L (73-393) 06/01/20 21:03 Carcinoembryonic Ag 1.3 ng/mL (0.0-3.0) 06/03/20 05:30 Specimen Type Clean catch urine 06/01/20 22:18 Urine Color [place] (YELLOW) 06/01/20 22:18 Urine Appearance Clear (CLEAR) 06/01/20 22:18 Urine pH 5.0 (5.0 - 8.0) 06/01/20 22:18 Ur Specific [place] 1.025 (1.000-1.030) 06/01/20 22:18 Urine Protein 3+ (NEGATIVE) 06/01/20 22:18 Urine Glucose (UA) Negative (NEGATIVE) 06/01/20 22:18 Urine Ketones 2+ (NEGATIVE) 06/01/20 22:18 Urine Occult Blood 1+ (NEGATIVE) 06/01/20 22:18 Urine Nitrite Positive (NEGATIVE) 06/01/20 22:18 Urine Bilirubin 1+ (NEGATIVE) 06/01/20 22:18 Urine Urobilinogen 2+ (NORMAL) 06/01/20 22:18 Ur Leukocyte Esterase 1+ (NEGATIVE) 06/01/20 22:18 Urine RBC 0-2 /HPF (0-3) 06/01/20 22:18 Urine WBC 3-5 /HPF (0-5) 06/01/20 22:18 Ur Squamous Epith Cells Rare /HPF (NEGATIVE) 06/01/20 22:18 Amorphous Sediment Trace /HPF (NEGATIVE) 06/01/20 22:18 Urine Bacteria Trace /HPF (NEGATIVE) 06/01/20 22:18 Hyaline Casts Few /LPF (NEGATIVE) 06/01/20 22:18 Urine Mucus Numerous /HPF (NEGATIVE) 06/01/20 22:18 Ur Culture Indicated? No/not indicated 06/01/20 22:18 SARS CoV-2 RNA Rapid TANGELA Negative (NEGATIVE) 06/02/20 00:46 Tissue Pathology To follow 06/02/20 10:15 - Plan (1) Diverticulitis of intestine with perforation Status: Acute Qualifiers: Diverticulitis site: unspecified part of intestinal tract Diverticulitis bleeding: unspecified bleeding status Qualified Code(s): K57.80 - Diverticulitis of intestine, part unspecified, with perforation and abscess without bleeding (2) Status post Kathleen procedure Status: Acute
[2020-06-07] MEDS ORDERED: ROBITUSSIN DM PO PRN (22:10)
[2020-06-07] MEDS ORDERED: ROBITUSSIN DM ONE (22:30)
[2020-06-08] MEDS: FLAGYL IV PREMIX 500 MG BAG 500 MG/100 ML BAG IV SCH ×2 (03:40→10:12)
[2020-06-08 06:06] LABS: BASOPHILS % (AUTO) 0.6 % (0.2-1.0); EOSINOPHILS # (AUTO) 0.2 x10^3/uL (0.0-0.2); EOSINOPHILS % (AUTO) 3.5 % (0.9-2.9); HEMATOCRIT 34.9 % (42.0-54.0); HEMOGLOBIN 11.6 g/dL (13.5-18.0); LYMPHOCYTES # (AUTO) 0.8 X10^3/uL (1.3-2.9); LYMPHOCYTES % (AUTO) 16.2 % (21.0-51.0); MEAN CORPUSCULAR HEMOGLOBIN 30.9 pg (27.0-34.0); MEAN CORPUSCULAR HGB CONC 33.4 g/dL (33.0-35.0); MEAN CORPUSCULAR VOLUME 92.8 fL (80.0-100.0); MEAN PLATELET VOLUME 7.4 fL (7.4-11.0); MONOCYTES # (AUTO) 0.5 x10^3/uL (0.3-0.8); MONOCYTES % (AUTO) 9.7 % (0.0-13.0); NEUTROPHILS # (AUTO) 3.6 x10^3/uL (2.2-4.8); PLATELET COUNT 350 X10^3/uL (150.0-450.0); RED BLOOD COUNT 3.76 X10^6/uL (4.7-6.0); RED CELL DISTRIBUTION WIDTH 13.8 % (11.6-16.5); WHITE BLOOD COUNT 5.2 X10^3/uL (3.6-10.0)
[2020-06-08] MEDS: NS 1000 ML 1,000 ML IV SCH (06:06)
[2020-06-08] MEDS: ZOSYN VIAL 3.375 GRAMS 3.375 G in NS 100 ML IV + SPIKE MINIBAG* 100 ML IV SCH ×2 (06:07→14:12)
[2020-06-08 06:30] LABS: ALANINE AMINOTRANSFERASE 81 Units/L (12-78); ALBUMIN 2.2 g/dL (3.4-5.0); ALKALINE PHOSPHATASE 66 Units/L (46-116); ASPARTATE AMINO TRANSFERASE 83 Units/L (15-37); BLOOD UREA NITROGEN 3 mg/dL (7-18); CALCIUM 7.9 mg/dL (8.5-10.1); CARBON DIOXIDE 33.9 mmol/L (21-32); CHLORIDE 101 mmol/L (98-107); COR CA(FOR HYPOALB) 9.3 mg/dL (8.5-10.1); COR NA(FOR HYPERGLY) 138 mmol/L (136-145); CREATININE 0.74 mg/dL (0.70-1.30); SODIUM 138 mmol/L (136-145); TOTAL PROTEIN 4.8 g/dL (6.4-8.2); eGFR NON BLACK RACES > 60 (>60)
[2020-06-08] MEDS: FLOMAX PO SCH (10:10)
[2020-06-08] MEDS: ALBUMIN HUMAN 25%- 100 ML 100 ML IV SCH (10:12)
[2020-06-08] MEDS: AYR NASAL DROPS SCH ×2 (10:12→14:12)
[2020-06-08] MEDS: FLONASE NASAL SPRAY ENOSTRIL SCH (10:12)
[2020-06-08] MEDS: LOVENOX INJ 40 MG SYR SC SCH (10:13)
[2020-06-08] MEDS: PROTONIX INJ 40 MG VIAL IVP SCH (10:55)
[2020-06-08 14:12] VITALS: BP 133/66
== END 2020-06-08 14:05 | disposition home health service (06) | DRG 330 ==
LOC: ER 19:54 → MED/SURG 06-02 01:41
PROVIDERS: ADMIT Surgery; ATTEND Surgery

== ENCOUNTER 2020-10-01 08:17 | Inpatient (IN) ==
[2020-10-01] MEDS ORDERED: ANCEF 1 GRAM IV PREMIX* 2 G/100 ML BAG IV ONE (08:20)
[2020-10-01 09:00] VITALS: BMI 33.0
[2020-10-01] MEDS ORDERED: ANCEF VIAL 1 GRAM IV ONE (09:06)
[2020-10-01] MEDS: LR 1000 ML IV 1,000 ML IV SCH ×2 (09:07→13:43)
[2020-10-01] MEDS ORDERED: KETALAR ONE (09:18)
[2020-10-01] MEDS ORDERED: BRIDION ONE (09:18)
[2020-10-01] MEDS ORDERED: FENTANYL INJ 250 mcg ONE (09:18)
[2020-10-01] MEDS ORDERED: OFIRMEV IV 1000 MG VIAL 1,000 MG/100 ML VIAL IV ONE (09:19)
[2020-10-01] MEDS ORDERED: ZEMURON 50 MG VIAL ONE (09:19)
[2020-10-01] MEDS ORDERED: ZOFRAN INJ 4 MG VIAL ONE ×2 (11:50→21:21)
[2020-10-01] MEDS ORDERED: VERSED ONE (11:50)
[2020-10-01] MEDS ORDERED: DECADRON INJ ONE (11:50)
[2020-10-01] MEDS ORDERED: XYLOCAINE 2 % (PLAIN) ONE (11:50)
[2020-10-01] MEDS ORDERED: ULTANE GAS IN ONE (11:50)
[2020-10-01] MEDS ORDERED: BETADINE SOLN TOP ONE (11:50)
[2020-10-01] MEDS ORDERED: HETASTARCH IV ONE ×3 (11:50→14:20)
[2020-10-01] MEDS ORDERED: EPHEDRINE SULFATE INJ ONE (11:50)
[2020-10-01] MEDS ORDERED: SODIUM CHLORIDE IV ONE ×3 (11:50→14:20)
[2020-10-01] MEDS ORDERED: DIPRIVAN VIAL ONE (11:50)
[2020-10-01] MEDS ORDERED: TORADOL 30 MG VIAL ONE (11:50)
[2020-10-01] MEDS ORDERED: NEO-SYNEPHRINE INJ ONE (11:50)
[2020-10-01] MEDS ORDERED: POLYMYXIN B SULFATE IR ONE (12:28)
[2020-10-01] MEDS ORDERED: NS 1000 ML 1,000 ML IV ONE ×2 (13:43→15:53)
[2020-10-01] MEDS ORDERED: PHENERGAN INJ 25 MG IM PRN (15:34)
[2020-10-01] MEDS ORDERED: REGLAN INJ 10 MG VIAL IVP PRN (15:34)
[2020-10-01] MEDS ORDERED: DILAUDID INJ IVP PRN (15:34)
[2020-10-01] MEDS ORDERED: ZOFRAN INJ 4 MG VIAL IVP PRN (15:34)
[2020-10-01] MEDS ORDERED: BENADRYL INJ 50 MG VIAL IVP PRN (15:34)
[2020-10-01] MEDS: DILAUDID INJ IVP PRN ×2 (18:17→22:35)
[2020-10-01] MEDS: D5 1/2 NS 1000 ML 1,000 ML IV SCH (18:18)
[2020-10-01] MEDS: FLAGYL IV PREMIX 500 MG BAG 500 MG/100 ML BAG IV SCH (18:18)
[2020-10-01] MEDS: ZOFRAN INJ 4 MG VIAL IVP PRN (21:30)
[2020-10-02] MEDS: D5 1/2 NS 1000 ML 1,000 ML IV SCH ×4 (02:30→17:54)
[2020-10-02] MEDS: FLAGYL IV PREMIX 500 MG BAG 500 MG/100 ML BAG IV SCH ×3 (02:33→17:23)
[2020-10-02] MEDS: DILAUDID INJ IVP PRN ×2 (03:35→08:29)
[2020-10-02 05:56] LABS: BASOPHILS % (AUTO) 0.1 % (0.2-1.0); HEMATOCRIT 40.9 % (42.0-54.0); HEMOGLOBIN 13.7 g/dL (13.5-18.0); LYMPHOCYTES # (AUTO) 0.9 X10^3/uL (1.3-2.9); LYMPHOCYTES % (AUTO) 9.3 % (21.0-51.0); MEAN CORPUSCULAR HGB CONC 33.4 g/dL (33.0-35.0); MEAN CORPUSCULAR VOLUME 92.6 fL (80.0-100.0); MEAN PLATELET VOLUME 7.5 fL (7.4-11.0); MONOCYTES # (AUTO) 0.9 x10^3/uL (0.3-0.8); MONOCYTES % (AUTO) 8.6 % (0.0-13.0); NEUTROPHILS # (AUTO) 8.4 x10^3/uL (2.2-4.8); PLATELET COUNT 233 X10^3/uL (150.0-450.0); RED BLOOD COUNT 4.42 X10^6/uL (4.7-6.0); RED CELL DISTRIBUTION WIDTH 13.9 % (11.6-16.5); WHITE BLOOD COUNT 10.2 X10^3/uL (3.6-10.0)
[2020-10-02 06:36] LABS: ALANINE AMINOTRANSFERASE 22 Units/L (12-78); ALBUMIN 2.6 g/dL (3.4-5.0); ALKALINE PHOSPHATASE 33 Units/L (46-116); ASPARTATE AMINO TRANSFERASE 15 Units/L (15-37); BLOOD UREA NITROGEN 13 mg/dL (7-18); CALCIUM 7.5 mg/dL (8.5-10.1); CHLORIDE 106 mmol/L (98-107); COR CA(FOR HYPOALB) 8.6 mg/dL (8.5-10.1); COR NA(FOR HYPERGLY) 142 mmol/L (136-145); CREATININE 0.91 mg/dL (0.70-1.30); SODIUM 141 mmol/L (136-145); eGFR NON BLACK RACES > 60 (>60)
[2020-10-02] MEDS: ZOFRAN INJ 4 MG VIAL IVP PRN ×2 (07:34→15:48)
[2020-10-02] MEDS: LOVENOX INJ 40 MG SYR SC SCH (08:28)
[2020-10-02] MEDS: PROTONIX INJ 40 MG VIAL IVP SCH (08:28)
[2020-10-02] MEDS: LEVAQUIN PREMIX IV 500 MG 500 MG/100 ML BAG IV SCH (08:28)
[2020-10-02] MEDS: MORPHINE SULFATE INJ 4 MG IVP PRN ×2 (14:48→20:14)
--- NOTE | 2020-10-02 16:12 | DR.PROGNOT ---
Hospital Progress Notes - Progress Note for Day of: Progress Note Date: 10/02/20 - Chief Complaint Chief Complaint: moderate incisional pain. good urine out put . only mild drainage in MULUGETA . CBC normal .. lytes .. BUN/Creat normal . afebrile . - Past Medical Family Social History Past Med/Fam/Surg Hx: No changes since H&P Allergies: Allergies No Known Drug Allergies Allergy (Verified 10/01/20 07:09) - Review Of Systems ROS: No change since H&P - Vital Signs Vital Signs: Temperature 98.0 F Pulse Rate [Left Radial] 83 Pulse Rate 101 Respiratory Rate 18 Blood Pressure [Right Arm] 138/64 Blood Pressure [Left Arm] 127/66 Blood Pressure 120/55 O2 Sat by Pulse Oximetry 98 - Physical Exam Oriented: Normal Eyes: Normal Ear: Normal Nose: Normal Respiratory: Normal Cardiovascular: Normal GI:Auscultation: Normal GI:Palpation: Normal GI: Tenderness: Diffuse (soft abdomen with diffuse tenderness . BS hypoactive .. ) Mood Description: Calm Speech Pattern: Clear, Appropriate - Laboratory and Diagnostics Result Diagrams: 10/02/20 05:15 10/02/20 05:15 Labs: Laboratory WBC 10.2 X10^3/uL (3.6-10.0) H 10/02/20 05:15 RBC 4.42 X10^6/uL (4.7-6.0) L 10/02/20 05:15 Hgb 13.7 g/dL (13.5-18.0) 10/02/20 05:15 Hct 40.9 % (42.0-54.0) L 10/02/20 05:15 MCV 92.6 fL (80.0-100.0) 10/02/20 05:15 MCH 31.0 pg (27.0-34.0) 10/02/20 05:15 MCHC 33.4 g/dL (33.0-35.0) 10/02/20 05:15 RDW 13.9 % (11.6-16.5) 10/02/20 05:15 Plt Count 233 X10^3/uL (150.0-450.0) 10/02/20 05:15 MPV 7.5 fL (7.4-11.0) 10/02/20 05:15 Neut % (Auto) 82.0 % (42.0-75.0) H 10/02/20 05:15 Lymph % (Auto) 9.3 % (21.0-51.0) L 10/02/20 05:15 [place] % (Auto) 8.6 % (0.0-13.0) 10/02/20 05:15 Eos % (Auto) 0.0 % (0.9-2.9) L 10/02/20 05:15 Baso % (Auto) 0.1 % (0.2-1.0) L 10/02/20 05:15 Neut # (Auto) 8.4 x10^3/uL (2.2-4.8) H 10/02/20 05:15 Lymph # (Auto) 0.9 X10^3/uL (1.3-2.9) L 10/02/20 05:15 [place] # (Auto) 0.9 x10^3/uL (0.3-0.8) H 10/02/20 05:15 Eos # (Auto) 0.0 x10^3/uL (0.0-0.2) 10/02/20 05:15 Baso # (Auto) 0.0 X10^3/uL (0.0-0.1) 10/02/20 05:15 Absolute Nucleated RBC 0.0 /100WBC 10/02/20 05:15 Sodium 141 mmol/L (136-145) 10/02/20 05:15 Corrected Sodium 142 mmol/L (136-145) 10/02/20 05:15 Potassium 4.2 mmol/L (3.5-5.1) 10/02/20 05:15 Chloride 106 mmol/L (98-107) 10/02/20 05:15 Carbon Dioxide 31.0 mmol/L (21-32) 10/02/20 05:15 BUN 13 mg/dL (7-18) 10/02/20 05:15 Creatinine 0.91 mg/dL (0.70-1.30) 10/02/20 05:15 Est GFR (MDRD) Af Amer > 60 (>60) 10/02/20 05:15 Est GFR (MDRD) Non-Af > 60 (>60) 10/02/20 05:15 Glucose 126 mg/dL (65-99) H 10/02/20 05:15 Calcium 7.5 mg/dL (8.5-10.1) L 10/02/20 05:15 Corrected Calcium 8.6 mg/dL (8.5-10.1) 10/02/20 05:15 Total Bilirubin 0.70 mg/dL (0.2-1.0) 10/02/20 05:15 AST 15 Units/L (15-37) 10/02/20 05:15 ALT 22 Units/L (12-78) 10/02/20 05:15 Alkaline Phosphatase 33 Units/L (46-116) L 10/02/20 05:15 Total Protein 5.0 g/dL (6.4-8.2) L 10/02/20 05:15 Albumin 2.6 g/dL (3.4-5.0) L 10/02/20 05:15 Globulin 2.4 g/dL (2.5-4.5) L 10/02/20 05:15 Albumin/Globulin Ratio 1.1 Ratio (1.1-2.1) 10/02/20 05:15 Tissue Pathology To follow 10/01/20 15:55 - Assessment and Plan 1: PO day 1 . closure of Velazquez's. lysis of extensive adhesions . pelvic anastomosis . same PO care . d/c garcia .. OOB with binder . keep NGT .
[2020-10-02] MEDS: ATIVAN INJ 2 MG VIAL IVP SCH (20:14)
[2020-10-03] MEDS: MORPHINE SULFATE INJ 4 MG IVP PRN ×5 (00:39→20:21)
[2020-10-03] MEDS: ZOFRAN INJ 4 MG VIAL IVP PRN ×2 (00:40→08:45)
[2020-10-03] MEDS: D5 1/2 NS 1000 ML 1,000 ML IV SCH ×4 (00:41→18:42)
[2020-10-03] MEDS: FLAGYL IV PREMIX 500 MG BAG 500 MG/100 ML BAG IV SCH ×3 (02:48→18:05)
[2020-10-03 08:09] LABS: BASOPHILS # (AUTO) 0.1 X10^3/uL (0.0-0.1); BASOPHILS % (AUTO) 0.6 % (0.2-1.0); EOSINOPHILS # (AUTO) 0.1 x10^3/uL (0.0-0.2); EOSINOPHILS % (AUTO) 0.9 % (0.9-2.9); HEMATOCRIT 40.3 % (42.0-54.0); HEMOGLOBIN 13.4 g/dL (13.5-18.0); LYMPHOCYTES % (AUTO) 9.3 % (21.0-51.0); MEAN CORPUSCULAR HEMOGLOBIN 30.6 pg (27.0-34.0); MEAN CORPUSCULAR HGB CONC 33.2 g/dL (33.0-35.0); MEAN CORPUSCULAR VOLUME 92.4 fL (80.0-100.0); MEAN PLATELET VOLUME 8.1 fL (7.4-11.0); MONOCYTES # (AUTO) 0.8 x10^3/uL (0.3-0.8); MONOCYTES % (AUTO) 7.5 % (0.0-13.0); NEUTROPHILS # (AUTO) 8.9 x10^3/uL (2.2-4.8); NEUTROPHILS % (AUTO) 81.7 % (42.0-75.0); PLATELET COUNT 196 X10^3/uL (150.0-450.0); RED BLOOD COUNT 4.36 X10^6/uL (4.7-6.0); RED CELL DISTRIBUTION WIDTH 14.1 % (11.6-16.5); WHITE BLOOD COUNT 10.9 X10^3/uL (3.6-10.0)
[2020-10-03 08:26] LABS: ALANINE AMINOTRANSFERASE 17 Units/L (12-78); ALBUMIN 2.5 g/dL (3.4-5.0); ALKALINE PHOSPHATASE 35 Units/L (46-116); ASPARTATE AMINO TRANSFERASE 13 Units/L (15-37); BLOOD UREA NITROGEN 10 mg/dL (7-18); CALCIUM 7.9 mg/dL (8.5-10.1); CARBON DIOXIDE 32.6 mmol/L (21-32); CHLORIDE 104 mmol/L (98-107); COR CA(FOR HYPOALB) 9.1 mg/dL (8.5-10.1); COR NA(FOR HYPERGLY) 139 mmol/L (136-145); CREATININE 0.83 mg/dL (0.70-1.30); SODIUM 138 mmol/L (136-145); TOTAL PROTEIN 5.3 g/dL (6.4-8.2); eGFR NON BLACK RACES > 60 (>60)
[2020-10-03] MEDS: LEVAQUIN PREMIX IV 500 MG 500 MG/100 ML BAG IV SCH (08:44)
[2020-10-03] MEDS: PROTONIX INJ 40 MG VIAL IVP SCH (08:45)
[2020-10-03 08:58] LABS: BAND NEUTROPHILS % 5 % (0-10); PLATELET MORPHOLOGY COMMENT NORMAL (NORMAL)
[2020-10-03] MEDS ORDERED: K-RIDER 10 MEQ/NS 100 ML 10 MEQ/100 ML BAG IV PRN (09:23)
[2020-10-03] MEDS ORDERED: POTASSIUM CHLORIDE LIQ 20 MEQ UDC PO PRN (09:23)
[2020-10-03] MEDS ORDERED: MICRO K EXTEN CAP 10 MEQ PO PRN (09:23)
[2020-10-03] MEDS ORDERED: POTASSIUM CHL 40 MEQ/NS 0.45% 500 ML IV PRN (09:23)
[2020-10-03] MEDS ORDERED: POTASSIUM CHL 60 MEQ/NS 0.45% 500 ML IV PRN (09:23)
[2020-10-03] MEDS ORDERED: KLOR-CON PO PRN (09:23)
[2020-10-03] MEDS: LOVENOX INJ 40 MG SYR SC SCH (11:54)
[2020-10-03] MEDS: DILAUDID INJ IVP PRN (12:00)
--- NOTE | 2020-10-03 12:33 | DR.PROGNOT ---
Hospital Progress Notes - Progress Note for Day of: Progress Note Date: 10/03/20 - Chief Complaint Chief Complaint: moderate incisional pain. OOB ambulatory . good urine out put . only mild drainage in MULUGETA . CBC normal .. lytes .. BUN/Creat normal . afebrile . - Past Medical Family Social History Past Med/Fam/Surg Hx: No changes since H&P Allergies: Allergies No Known Drug Allergies Allergy (Verified 10/01/20 07:09) - Review Of Systems ROS: No change since H&P - Vital Signs Vital Signs: Temperature 98.8 F Pulse Rate [Left Radial] 92 Pulse Rate 101 Respiratory Rate 21 Blood Pressure [Right Arm] 126/65 Blood Pressure [Left Arm] 131/67 Blood Pressure 120/55 O2 Sat by Pulse Oximetry 96 - Physical Exam Oriented: Normal Eyes: Normal Ear: Normal Nose: Normal Respiratory: Normal Cardiovascular: Normal GI:Auscultation: Normal GI:Palpation: Normal GI: Tenderness: Diffuse (soft abdomen with diffuse tenderness . BS hypoactive .. ) Mood Description: Calm Speech Pattern: Clear, Appropriate - Laboratory and Diagnostics Result Diagrams: 10/03/20 07:42 10/03/20 07:42 Labs: Laboratory WBC 10.9 X10^3/uL (3.6-10.0) H 10/03/20 07:42 RBC 4.36 X10^6/uL (4.7-6.0) L 10/03/20 07:42 Hgb 13.4 g/dL (13.5-18.0) L 10/03/20 07:42 Hct 40.3 % (42.0-54.0) L 10/03/20 07:42 MCV 92.4 fL (80.0-100.0) 10/03/20 07:42 MCH 30.6 pg (27.0-34.0) 10/03/20 07:42 MCHC 33.2 g/dL (33.0-35.0) 10/03/20 07:42 RDW 14.1 % (11.6-16.5) 10/03/20 07:42 Plt Count 196 X10^3/uL (150.0-450.0) 10/03/20 07:42 Plt Count Comment Adequate (ADEQUATE) 10/03/20 07:42 MPV 8.1 fL (7.4-11.0) 10/03/20 07:42 Neut % (Auto) 81.7 % (42.0-75.0) H 10/03/20 07:42 Lymph % (Auto) 9.3 % (21.0-51.0) L 10/03/20 07:42 [place] % (Auto) 7.5 % (0.0-13.0) 10/03/20 07:42 Eos % (Auto) 0.9 % (0.9-2.9) 10/03/20 07:42 Baso % (Auto) 0.6 % (0.2-1.0) 10/03/20 07:42 Neut # (Auto) 8.9 x10^3/uL (2.2-4.8) H 10/03/20 07:42 Lymph # (Auto) 1.0 X10^3/uL (1.3-2.9) L 10/03/20 07:42 [place] # (Auto) 0.8 x10^3/uL (0.3-0.8) 10/03/20 07:42 Eos # (Auto) 0.1 x10^3/uL (0.0-0.2) 10/03/20 07:42 Baso # (Auto) 0.1 X10^3/uL (0.0-0.1) 10/03/20 07:42 Absolute Nucleated RBC 0.0 /100WBC 10/03/20 07:42 Total Counted 100 10/03/20 07:42 Neutrophils % (Manual) 79 % (39-76) H 10/03/20 07:42 Band Neutrophils % 5 % (0-10) 10/03/20 07:42 Lymphocytes % (Manual) 12 % (13-43) L 10/03/20 07:42 Monocytes % (Manual) 4 % (4-9) 10/03/20 07:42 Plt Morphology Comment Normal (NORMAL) 10/03/20 07:42 RBC Morphology Normal (NORMAL) 10/03/20 07:42 Sodium 138 mmol/L (136-145) 10/03/20 07:42 Corrected Sodium 139 mmol/L (136-145) 10/03/20 07:42 Potassium 3.6 mmol/L (3.5-5.1) 10/03/20 07:42 Chloride 104 mmol/L (98-107) 10/03/20 07:42 Carbon Dioxide 32.6 mmol/L (21-32) H 10/03/20 07:42 BUN 10 mg/dL (7-18) 10/03/20 07:42 Creatinine 0.83 mg/dL (0.70-1.30) 10/03/20 07:42 Est GFR (MDRD) Af Amer > 60 (>60) 10/03/20 07:42 Est GFR (MDRD) Non-Af > 60 (>60) 10/03/20 07:42 Glucose 121 mg/dL (65-99) H 10/03/20 07:42 Calcium 7.9 mg/dL (8.5-10.1) L 10/03/20 07:42 Corrected Calcium 9.1 mg/dL (8.5-10.1) 10/03/20 07:42 Magnesium 1.7 mg/dL (1.7-2.9) 10/03/20 07:42 Total Bilirubin 0.70 mg/dL (0.2-1.0) 10/03/20 07:42 AST 13 Units/L (15-37) L 10/03/20 07:42 ALT 17 Units/L (12-78) 10/03/20 07:42 Alkaline Phosphatase 35 Units/L (46-116) L 10/03/20 07:42 Total Protein 5.3 g/dL (6.4-8.2) L 10/03/20 07:42 Albumin 2.5 g/dL (3.4-5.0) L 10/03/20 07:42 Globulin 2.8 g/dL (2.5-4.5) 10/03/20 07:42 Albumin/Globulin Ratio 0.9 Ratio (1.1-2.1) L 10/03/20 07:42 Tissue Pathology To follow 10/01/20 15:55 - Assessment and Plan 1: PO day 2 . 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 lysis of extensive adhesions . same PO care . .. OOB with binder . to D/C NGT and start clear liquid .
[2020-10-03] MEDS: MAGNESIUM SULFATE 1 GRAM/100 mL PREMIX 1 GM/100 ML BAG IV PRN ×2 (14:48→16:22)
[2020-10-03] MEDS: K-DUR TAB 20 MEQ PO PRN (14:48)
[2020-10-03] MEDS: ATIVAN INJ 2 MG VIAL IVP SCH (20:20)
[2020-10-03] MEDS: BENADRYL CAP/TAB 25 MG PO PRN (21:10)
[2020-10-03] MEDS: FLONASE NASAL SPRAY ENOSTRIL SCH (21:10)
[2020-10-04] MEDS: D5 1/2 NS 1000 ML 1,000 ML IV SCH ×4 (01:22→18:16)
[2020-10-04] MEDS: FLAGYL IV PREMIX 500 MG BAG 500 MG/100 ML BAG IV SCH ×3 (01:22→17:59)
[2020-10-04] MEDS: MORPHINE SULFATE INJ 4 MG IVP PRN ×2 (04:10→09:47)
[2020-10-04] MEDS: ZOFRAN INJ 4 MG VIAL IVP PRN ×2 (05:05→12:52)
[2020-10-04 06:12] LABS: BASOPHILS % (AUTO) 0.5 % (0.2-1.0); EOSINOPHILS # (AUTO) 0.2 x10^3/uL (0.0-0.2); EOSINOPHILS % (AUTO) 3.2 % (0.9-2.9); HEMOGLOBIN 12.9 g/dL (13.5-18.0); LYMPHOCYTES # (AUTO) 1.1 X10^3/uL (1.3-2.9); LYMPHOCYTES % (AUTO) 16.2 % (21.0-51.0); MEAN CORPUSCULAR HEMOGLOBIN 31.2 pg (27.0-34.0); MEAN CORPUSCULAR VOLUME 91.8 fL (80.0-100.0); MEAN PLATELET VOLUME 7.8 fL (7.4-11.0); MONOCYTES # (AUTO) 0.6 x10^3/uL (0.3-0.8); MONOCYTES % (AUTO) 8.7 % (0.0-13.0); NEUTROPHILS # (AUTO) 4.9 x10^3/uL (2.2-4.8); NEUTROPHILS % (AUTO) 71.4 % (42.0-75.0); PLATELET COUNT 199 X10^3/uL (150.0-450.0); RED BLOOD COUNT 4.13 X10^6/uL (4.7-6.0); RED CELL DISTRIBUTION WIDTH 13.8 % (11.6-16.5); WHITE BLOOD COUNT 6.9 X10^3/uL (3.6-10.0)
[2020-10-04 06:24] LABS: ALANINE AMINOTRANSFERASE 15 Units/L (12-78); ALBUMIN 2.4 g/dL (3.4-5.0); ALKALINE PHOSPHATASE 35 Units/L (46-116); ASPARTATE AMINO TRANSFERASE 15 Units/L (15-37); BLOOD UREA NITROGEN 8 mg/dL (7-18); CARBON DIOXIDE 28.9 mmol/L (21-32); CHLORIDE 103 mmol/L (98-107); COR CA(FOR HYPOALB) 9.3 mg/dL (8.5-10.1); COR NA(FOR HYPERGLY) 137 mmol/L (136-145); CREATININE 0.81 mg/dL (0.70-1.30); MAGNESIUM 1.8 mg/dL (1.7-2.9); SODIUM 137 mmol/L (136-145); TOTAL PROTEIN 5.2 g/dL (6.4-8.2); eGFR NON BLACK RACES > 60 (>60)
[2020-10-04] MEDS: PROTONIX INJ 40 MG VIAL IVP SCH (09:46)
[2020-10-04] MEDS: K-DUR TAB 20 MEQ PO PRN (09:46)
[2020-10-04] MEDS: LOVENOX INJ 40 MG SYR SC SCH (09:46)
[2020-10-04] MEDS: LEVAQUIN PREMIX IV 500 MG 500 MG/100 ML BAG IV SCH (09:47)
[2020-10-04] MEDS: FLONASE NASAL SPRAY ENOSTRIL SCH (09:48)
--- NOTE | 2020-10-04 11:01 | DR.PROGNOT ---
Hospital Progress Notes - Progress Note for Day of: Progress Note Date: 10/04/20 - Chief Complaint Chief Complaint: moderate incisional pain. no BM yet .. OOB ambulatory . good urine out put . only mild drainage in [place] . CBC normal .. lytes .. BUN/Creat normal . afebrile . all dressings were changed and JPs were removed . no wound infection . - Past Medical Family Social History Past Med/Fam/Surg Hx: No changes since H&P Allergies: Allergies No Known Drug Allergies Allergy (Verified 10/01/20 07:09) - Review Of Systems ROS: No change since H&P - Vital Signs Vital Signs: Temperature 97.6 F Pulse Rate [Left Radial] 83 Pulse Rate 101 Respiratory Rate 20 Blood Pressure [Right Arm] 123/63 Blood Pressure [Left Arm] 129/74 Blood Pressure 120/55 O2 Sat by Pulse Oximetry 97 - Physical Exam Oriented: Normal Eyes: Normal Ear: Normal Nose: Normal Respiratory: Normal Cardiovascular: Normal GI:Auscultation: Normal GI:Palpation: Normal GI: Tenderness: Diffuse (soft abdomen with diffuse tenderness . BS hypoactive .. ) Mood Description: Calm Speech Pattern: Clear, Appropriate - Laboratory and Diagnostics Result Diagrams: 10/04/20 05:11 10/04/20 05:11 Labs: Laboratory WBC 6.9 X10^3/uL (3.6-10.0) 10/04/20 05:11 RBC 4.13 X10^6/uL (4.7-6.0) L 10/04/20 05:11 Hgb 12.9 g/dL (13.5-18.0) L 10/04/20 05:11 Hct 38.0 % (42.0-54.0) L 10/04/20 05:11 MCV 91.8 fL (80.0-100.0) 10/04/20 05:11 MCH 31.2 pg (27.0-34.0) 10/04/20 05:11 MCHC 34.0 g/dL (33.0-35.0) 10/04/20 05:11 RDW 13.8 % (11.6-16.5) 10/04/20 05:11 Plt Count 199 X10^3/uL (150.0-450.0) 10/04/20 05:11 Plt Count Comment Adequate (ADEQUATE) 10/03/20 07:42 MPV 7.8 fL (7.4-11.0) 10/04/20 05:11 Neut % (Auto) 71.4 % (42.0-75.0) 10/04/20 05:11 Lymph % (Auto) 16.2 % (21.0-51.0) L 10/04/20 05:11 [place] % (Auto) 8.7 % (0.0-13.0) 10/04/20 05:11 Eos % (Auto) 3.2 % (0.9-2.9) H 10/04/20 05:11 Baso % (Auto) 0.5 % (0.2-1.0) 10/04/20 05:11 Neut # (Auto) 4.9 x10^3/uL (2.2-4.8) H 10/04/20 05:11 Lymph # (Auto) 1.1 X10^3/uL (1.3-2.9) L 10/04/20 05:11 [place] # (Auto) 0.6 x10^3/uL (0.3-0.8) 10/04/20 05:11 Eos # (Auto) 0.2 x10^3/uL (0.0-0.2) 10/04/20 05:11 Baso # (Auto) 0.0 X10^3/uL (0.0-0.1) 10/04/20 05:11 Absolute Nucleated RBC 0.0 /100WBC 10/04/20 05:11 Total Counted 100 10/03/20 07:42 Neutrophils % (Manual) 79 % (39-76) H 10/03/20 07:42 Band Neutrophils % 5 % (0-10) 10/03/20 07:42 Lymphocytes % (Manual) 12 % (13-43) L 10/03/20 07:42 Monocytes % (Manual) 4 % (4-9) 10/03/20 07:42 Plt Morphology Comment Normal (NORMAL) 10/03/20 07:42 RBC Morphology Normal (NORMAL) 10/03/20 07:42 Sodium 137 mmol/L (136-145) 10/04/20 05:11 Corrected Sodium 137 mmol/L (136-145) 10/04/20 05:11 Potassium 3.6 mmol/L (3.5-5.1) 10/04/20 05:11 Chloride 103 mmol/L (98-107) 10/04/20 05:11 Carbon Dioxide 28.9 mmol/L (21-32) 10/04/20 05:11 BUN 8 mg/dL (7-18) 10/04/20 05:11 Creatinine 0.81 mg/dL (0.70-1.30) 10/04/20 05:11 Est GFR (MDRD) Af Amer > 60 (>60) 10/04/20 05:11 Est GFR (MDRD) Non-Af > 60 (>60) 10/04/20 05:11 Glucose 113 mg/dL (65-99) H 10/04/20 05:11 Calcium 8.0 mg/dL (8.5-10.1) L 10/04/20 05:11 Corrected Calcium 9.3 mg/dL (8.5-10.1) 10/04/20 05:11 Magnesium 1.8 mg/dL (1.7-2.9) 10/04/20 05:11 Total Bilirubin 0.60 mg/dL (0.2-1.0) 10/04/20 05:11 AST 15 Units/L (15-37) 10/04/20 05:11 ALT 15 Units/L (12-78) 10/04/20 05:11 Alkaline Phosphatase 35 Units/L (46-116) L 10/04/20 05:11 Total Protein 5.2 g/dL (6.4-8.2) L 10/04/20 05:11 Albumin 2.4 g/dL (3.4-5.0) L 10/04/20 05:11 Globulin 2.8 g/dL (2.5-4.5) 10/04/20 05:11 Albumin/Globulin Ratio 0.9 Ratio (1.1-2.1) L 10/04/20 05:11 Tissue Pathology To follow 10/01/20 15:55 - Assessment and Plan 1: PO day 3 . 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 lysis of extensive adhesions . same PO care . .. OOB with binder . to start on full liquid diet . d/c IV ATB
[2020-10-04] MEDS ORDERED: MYLICON TAB 80 MG CHEW PO PRN (17:16)
[2020-10-04] MEDS: PERCOCET TAB 5/325 MG PO PRN (18:29)
[2020-10-04] MEDS: ATIVAN INJ 2 MG VIAL IVP SCH (20:56)
[2020-10-05] MEDS: PERCOCET TAB 5/325 MG PO PRN (01:01)
[2020-10-05] MEDS: BENADRYL CAP/TAB 25 MG PO PRN (01:01)
[2020-10-05] MEDS: FLAGYL IV PREMIX 500 MG BAG 500 MG/100 ML BAG IV SCH (01:01)
[2020-10-05] MEDS: D5 1/2 NS 1000 ML 1,000 ML IV SCH (01:02)
[2020-10-05 08:17] VITALS: BP 158/81
[2020-10-05] MEDS: PROTONIX INJ 40 MG VIAL IVP SCH (08:42)
[2020-10-05] MEDS: LOVENOX INJ 40 MG SYR SC SCH (08:42)
[2020-10-05] MEDS: LEVAQUIN PREMIX IV 500 MG 500 MG/100 ML BAG IV SCH (08:42)
== END 2020-10-05 09:30 | disposition home or self-care (01) | DRG 336 ==
LOC: SURG1 08:17 → MED/SURG 16:59
PROVIDERS: ADMIT Surgery; ATTEND Surgery
DX: R94.31 Abnormal electrocardiogram [ECG] [EKG]; K57.00 Diverticulitis of small intestine with perforation and abscess without bleeding; Z93.3 Colostomy status; K56.51 Intestinal adhesions [bands], with partial obstruction

== ENCOUNTER 2022-11-16 20:55 | Observation (INO) ==
--- NOTE | 2022-11-16 21:23 | DR.ABDMALE ---
HPI Time seen Time Seen by Provider: 11/16/22 21:22 PCP Primary Care Physician: JOSE RAUL EPPERSON Complaint Chief Complaint Doctors Comments: Patient presents with diarrhea x 1 month and hematochezia today. Patient is currently taking Wegovy and his doctor increased the dose 1 month ago.Patient had colon surgery in the past ) had a colostomy that was reversed. Patient had diverticulitis and perforation.His colon was resected.Dr Staley did the surgery and told the patient that if he was having any sxs he should be re-evaluated.Patient's states that he feels bloated and has cramping bilateral lower quadrant pain.He denies:fever,weakness,headache,urinary sxs,back pain. Chief Complaint:: PT C/O ABD PAIN, DIARRHEA AND REFLUX X 1 MONTH SINCE HIS PCP INCREASED HIS WEGOVY DOSE. PT ALSO REPORTS THIS MORNING HE STARTED PASSING BLOOD IN HIS STOOL. COVID-19 Coronavirus risk:travel/contact w/high risk person: No Has patient experienced Coronavirus symptoms: No Mode of arrival Mode of Arrival: Ambulatory Timing Onset of Chief Complaint: 11/16/22 PMH PMH Past Medical History: Yes Past Medical History: GERD, Hypertension and Hypothyroidism Past Surgical History: Yes Surgical History: Abdominal Surgery, Appendectomy and Other Past Surgical History Comment: COLON RESECT, COLOSTOMY W/ REVERSAL Family History History of Family Medical Conditions: Yes Family Medical History: Hypertension Social History Alcohol Use: Occasionally Do you use any recreational Drugs:: No Lives With: Family Lives Where: Home Travel Risk Coronavirus risk:travel/contact w/high risk person: No Has patient experienced Coronavirus symptoms: No Infectious screening In the last 2 months have you had wt loss of >10#?: NO Have you had fever, night sweats or hemotysis?: No Have you traveled outside the country in the last 6 months?: No Isolation: Standard ROS Review of Systems Constitutional: No Symptoms Reported Eyes: No Symptoms Reported ENTM: No Symptoms Reported Respiratoy: No Symptoms Reported Cardiovascular: No Symptoms Reported Gastrointestinal/Abdominal: Abdominal Pain (Bilateral lower quadrant) and Diar nicholas Genitourinary: No Symptoms Reported Neurological: No Symptoms Reported Musculoskeletal: No Symptoms Reported Integumentary: No Symptoms Reported Hematologic/Lymphatic: No Symptoms Reported Endocrine: No Symptoms Reported Psychiatric: No Symptoms Reported All Other Systems: Reviewed and Negative PE Vital Signs Vital Signs: Temp Pulse Resp BP BP BP Pulse Ox 03/24/21 18:57 142/79 03/24/21 18:37 142/79 06/08/20 09:20 11/17/22 00:06 91 H 147/87 95 11/16/22 21:02 97.9 F 89 20 148/81 95 01/20/22 12:00 101/57 O2 Del Method FiO2 03/24/21 18:57 03/24/21 18:37 06/08/20 09:20 28 11/17/22 00:06 Room Air 11/16/22 21:02 Room Air 01/20/22 12:00 General Limitations: No Limitations General Appearance: Alert and In No Apparent Distress Head Head Exam: Normal Inspection Eyes Eye exam: Normal Appearance ENT ENT Exam: Normal Exam Neck Neck Exam: Normal Inspection Chest Chest Inspection: Normal Inspection Respiratory Respiratory Exam: Normal Lung Sounds Bilat Respiratory Exam: Bilateral: Clear to Auscultation Cardiovascular Cardiovascular Exam: Regular Rate and Normal Rhythm Abdominal Exam Abdominal Exam: Normal Inspection, Normal Bowel Sounds and Tenderness (BLQ to palpation) Abdominal Tenderness: RLQ, LLQ and Severe Rectal Rectal Exam: Deferred Back Back Exam: Normal Inspection Extremeties Extremities Exam: Normal Inspection Exam: Male: Deferred Neurologic Neurological Exam: Alert and Oriented X3 Psychiatric Psychiatric Exam: Normal Affect and Normal Mood Skin Skin Exam: Warm, Dry, Intact and Normal Color MDM Differential Diagnosis Differential Diagnosis: Bowel Obstruction, Diverticular disease and Ischemic Bowel Other differential diagnosis: Bowel perforation COURSE Treatment Treatment: Patient was brought to a monitored room and iv access was applied.Patient received NS 1L bolus,dicyclomine 10mg im,zofran 4mg iv,protonix 40mg iv. Patient's abd/pelvix CT w/ contrast revealed colitis.Discussed case with Dr Gil patient's General Surgeon.He will admit the patient to the hospital further treatment.Patient will be given Iv flagyl 500mg and Iv ciprofloxacin 400mg in the Ed.Also a second liter of fluid at 80ml/hr iv.Patient was given morphine 2mg iv and zofran 4mg iv for pain and nausea. ROR Labs Reviewed Laboratory Results Reviewed?: Yes Result Diagrams: 11/16/22 21:44 11/16/22 21:44 Laboratory: WBC 12.8 X10^3/uL (3.6-10.0) H 11/16/22 21:44 RBC 5.24 X10^6/uL (4.7-6.0) 11/16/22 21:44 Hgb 16.8 g/dL (13.5-18.0) 11/16/22 21:44 Hct 48.6 % (42.0-54.0) 11/16/22 21:44 MCV 92.7 fL (80.0-100.0) 11/16/22 21:44 MCH 32.0 pg (27.0-34.0) 11/16/22 21:44 MCHC 34.5 g/dL (33.0-35.0) 11/16/22:44 RDW 13.3 % (11.6-16.5) 11/16/22:44 Plt Count 217 X10^3/uL (150.0-450.0) 11/16/22 21:44 MPV 7.5 fL (7.4-11.0) 11/16/22 21:44 Neut % (Auto) 84.9 % (42.0-75.0) H 11/16/22 21:44 Lymph % (Auto) 6.9 % (21.0-51.0) L 11/16/22 21:44 [place] % (Auto) 7.2 % (0.0-13.0) 11/16/22:44 Eos % (Auto) 0.8 % (0.9-2.9) L 11/16/22:44 Baso % (Auto) 0.2 % (0.2-1.0) 11/16/22 21:44 Neut # (Auto) 10.9 x10^3/uL (2.2-4.8) H 11/16/22 21:44 Lymph # (Auto) 0.9 X10^3/uL (1.3-2.9) L 11/16/22 21:44 [place] # (Auto) 0.9 x10^3/uL (0.3-0.8) H 11/16/22 21:44 Eos # (Auto) 0.1 x10^3/uL (0.0-0.2) 11/16/22 21:44 Baso # (Auto) 0.0 X10^3/uL (0.0-0.1) 11/16/22 21:44 Absolute Nucleated RBC 0.2 /100WBC 11/16/22 21:44 Sodium 138 mmol/L (136-145) 11/16/22 21:44 Corrected Sodium 139 mmol/L (136-145) 11/16/22 21:44 Potassium 3.6 mmol/L (3.5-5.1) 11/16/22 21:44 Chloride 102 mmol/L (98-107) 11/16/22 21:44 Carbon Dioxide 27.4 mmol/L (21-32) 11/16/22 21:44 BUN 9 mg/dL (7-18) 11/16/22 21:44 Creatinine 0.91 mg/dL (0.70-1.30) 11/16/22 21:44 Est GFR (MDRD) Af Amer > 60 (>60) 11/16/22 21:44 Est GFR (MDRD) Non-Af > 60 (>60) 11/16/22 21:44 Glucose 128 mg/dL (65-99) H 11/16/22 21:44 Lactic Acid 1.0 mmol/L (0.4-2.0) 11/16/22 21:44 Calcium 8.4 mg/dL (8.5-10.1) L 11/16/22 21:44 Corrected Calcium TNP 11/16/22 21:44 Total Bilirubin 0.90 mg/dL (0.2-1.0) 11/16/22 21:44 AST 16 Units/L (15-37) 11/16/22:44 ALT 33 Units/L (12-78) 11/16/22 21:44 Alkaline Phosphatase 54 Units/L (46-116) 11/16/22 21:44 C-Reactive Protein 16.30 mg/L (0-3.0) H 11/16/22 21:44 Total Protein 6.4 g/dL (6.4-8.2) 11/16/22 21:44 Albumin 3.5 g/dL (3.4-5.0) 11/16/22 21:44 Globulin 2.9 g/dL (2.5-4.5) 11/16/22 21:44 Albumin/Globulin Ratio 1.2 Ratio (1.1-2.1) 11/16/22 21:44 Amylase 31 Units/L (25-115) 11/16/22 21:44 Lipase 70 Units/L (73-393) L 11/16/22 21:44 XRAY XRAY Interpreted by: Radiologist X-ray Results: PROCEDURE: CT Abdomen and Pelvis with Contrast . HISTORY: Hematochezia. TECHNIQUE: Axial images were performed through the abdomen and pelvis with the administration of IV contrast with multiplanar reformations . Oral contrast was not administered. Dose reduction techniques including Automated Exposure Control (AEC) and adjustment of mA and kV were utilized . COMPARISON: 01/09/2021. TECHNICAL QUALITY: Satisfactory . FINDINGS: Clear lung bases. Liver, spleen, adrenals, pancreas show no abnormality. Kidneys show no masses or obstruction. Normal biliary tract. No ascites or pneumoperitoneum. Mild atherosclerosis aorta. No lymphadenopathy. Mucosal thickening involving mid transverse through rectosigmoid colon consi stent with colitis that is probably infectious. No bowel obstruction. Previous appendectomy. Pelvis shows no masses or free fluid in normal urinary bladder. No acute bony abnormality. IMPRESSION: 1. Colitis that is probably infectious. 2. No other significant abnormality identified. Electronically signed by: Lenin Eaton (November 16, 2022 22:58:49) Opioid Opioid Risk Tool Age (Charli box if 16-45): No History of Preadolescent Sexual Abuse: No Total: 0 Total Score Risk Category: Low Risk Copyright: Konrad DAVIDSON predicting aberrant behaviors Discharge Plan Diagnosis Discharge Problem: Colitis, Intractable abdominal pain Discharge Plan Patient Disposition: ADMITTED INPATIENT Condition: Stable Prescriptions: No Action tamsulosin 0.4 mg capsule 1 cap PO QDAY levothyroxine 50 mcg tablet 1 tab PO QDAY nebivolol 10 mg tablet 1 tab PO QDAY Wegovy 1 mg/0.5 mL pen injector 1 mg SUBCUT QWEEK Health Concerns: Post Hospitalization: new medications and changes needed to prevent readmission or further decline. Pt educated and given instructions on all concerns. Plan of Treatment: Observation Admission Orders to Discharge Patient Discharge Orders: Transfer (Routine); Ordered 11/16/22 Ordered By: Rosa Stringer Follow ups/Referrals Follow ups/Referrals: Alexy Nolasco [Primary Care Provider] - 3 days
[2022-11-16] MEDS ORDERED: PROTONIX INJ 40 MG VIAL IVP ONE (21:33)
[2022-11-16] MEDS ORDERED: PROTONIX INJ 40 MG VIAL ONE (21:39)
[2022-11-16 22:01] LABS: BASOPHILS % (AUTO) 0.2 % (0.2-1.0); EOSINOPHILS # (AUTO) 0.1 x10^3/uL (0.0-0.2); EOSINOPHILS % (AUTO) 0.8 % (0.9-2.9); HEMATOCRIT 48.6 % (42.0-54.0); HEMOGLOBIN 16.8 g/dL (13.5-18.0); LYMPHOCYTES # (AUTO) 0.9 X10^3/uL (1.3-2.9); LYMPHOCYTES % (AUTO) 6.9 % (21.0-51.0); MEAN CORPUSCULAR HGB CONC 34.5 g/dL (33.0-35.0); MEAN CORPUSCULAR VOLUME 92.7 fL (80.0-100.0); MEAN PLATELET VOLUME 7.5 fL (7.4-11.0); MONOCYTES # (AUTO) 0.9 x10^3/uL (0.3-0.8); MONOCYTES % (AUTO) 7.2 % (0.0-13.0); NEUTROPHILS # (AUTO) 10.9 x10^3/uL (2.2-4.8); NEUTROPHILS % (AUTO) 84.9 % (42.0-75.0); PLATELET COUNT 217 X10^3/uL (150.0-450.0); RED BLOOD COUNT 5.24 X10^6/uL (4.7-6.0); RED CELL DISTRIBUTION WIDTH 13.3 % (11.6-16.5); WHITE BLOOD COUNT 12.8 X10^3/uL (3.6-10.0)
[2022-11-16 22:10] LABS: ALANINE AMINOTRANSFERASE 33 Units/L (12-78); ALBUMIN 3.5 g/dL (3.4-5.0); ALKALINE PHOSPHATASE 54 Units/L (46-116); AMYLASE 31 Units/L (25-115); ASPARTATE AMINO TRANSFERASE 16 Units/L (15-37); BLOOD UREA NITROGEN 9 mg/dL (7-18); CALCIUM 8.4 mg/dL (8.5-10.1); CARBON DIOXIDE 27.4 mmol/L (21-32); CHLORIDE 102 mmol/L (98-107); COR NA(FOR HYPERGLY) 139 mmol/L (136-145); CREATININE 0.91 mg/dL (0.70-1.30); GLUCOSE 128 mg/dL (65-99); LIPASE 70 Units/L (73-393); POTASSIUM 3.6 mmol/L (3.5-5.1); SODIUM 138 mmol/L (136-145); TOTAL PROTEIN 6.4 g/dL (6.4-8.2); eGFR NON BLACK RACES > 60 (>60)
[2022-11-16] MEDS ORDERED: NS 1,000 ML IV 1,000 ML IV ONE (22:16)
[2022-11-16] MEDS ORDERED: BENTYL I.M. INJ 10 MG IM ONE ×2 (22:16→22:21)
[2022-11-16] MEDS ORDERED: ZOFRAN INJ 4 MG VIAL IVP ONE (22:16)
[2022-11-16] MEDS ORDERED: NS 1,000 ML IV 1,000 ML ONE ×2 (22:21→23:55)
[2022-11-16] MEDS ORDERED: ZOFRAN INJ 4 MG VIAL ONE (22:21)
--- NOTE | 2022-11-16 23:00 | CT ---
PROCEDURE: CT Abdomen and Pelvis with Contrast .HISTORY: Hematochezia.TECHNIQUE: Axial images were performed through the abdomen and pelvis with the administration of IV contrast with multiplanar reformations . Oral contrast was not administered. Dose reduction techniques including Automated Exposure Control (AEC) and adjustment of mA and kV were utilized .COMPARISON: 01/09/2021.TECHNICAL QUALITY: Satisfactory .FINDINGS:Clear lung bases.Liver, spleen, adrenals, pancreas show no abnormality.Kidneys show no masses or obstruction.Normal biliary tract.No ascites or pneumoperitoneum.Mild atherosclerosis aorta.No lymphadenopathy.Mucosal thickening involving mid transverse through rectosigmoid colon consistent with colitis that is probably infectious. No bowel obstruction. Previous appendectomy.Pelvis shows no masses or free fluid in normal urinary bladder.No acute bony abnormality.IMPRESSION:1. Colitis that is probably infectious.2. No other significant abnormality identified.Electronically signed by: Lenin Eaton (November 16, 2022 22:58:49)
[2022-11-16] MEDS ORDERED: CIPRO IV 400 MG PREMIX* 400 MG/200 ML IV.SOLN. IV ONE (23:55)
[2022-11-17] MEDS: CIPRO IV 400 MG PREMIX* 400 MG/200 ML IV.SOLN. IV SCH (00:01)
[2022-11-17] MEDS: NS 1,000 ML IV 1,000 ML IV SCH ×2 (00:02→14:41)
[2022-11-17] MEDS ORDERED: MORPHINE SULFATE INJ 2 MG INJ IVP PRN (00:07)
[2022-11-17] MEDS ORDERED: ZOFRAN INJ 4 MG VIAL ONE (00:12)
[2022-11-17] MEDS ORDERED: MORPHINE SULFATE INJ 2 MG INJ ONE (00:12)
[2022-11-17] MEDS: ZOFRAN INJ 4 MG VIAL IVP PRN ×3 (00:17→16:06)
[2022-11-17] MEDS: FLAGYL IV PREMIX 500 MG BAG 500 MG/100 ML BAG IV SCH ×4 (02:56→21:07)
[2022-11-17] MEDS: DILAUDID INJ IVP PRN (03:13)
[2022-11-17 05:16] LABS: BASOPHILS % (AUTO) 0.4 % (0.2-1.0); EOSINOPHILS # (AUTO) 0.1 x10^3/uL (0.0-0.2); EOSINOPHILS % (AUTO) 0.7 % (0.9-2.9); HEMATOCRIT 43.9 % (42.0-54.0); HEMOGLOBIN 15.5 g/dL (13.5-18.0); LYMPHOCYTES # (AUTO) 0.9 X10^3/uL (1.3-2.9); LYMPHOCYTES % (AUTO) 8.3 % (21.0-51.0); MEAN CORPUSCULAR HEMOGLOBIN 32.9 pg (27.0-34.0); MEAN CORPUSCULAR HGB CONC 35.3 g/dL (33.0-35.0); MEAN CORPUSCULAR VOLUME 93.2 fL (80.0-100.0); MEAN PLATELET VOLUME 7.9 fL (7.4-11.0); MONOCYTES # (AUTO) 0.9 x10^3/uL (0.3-0.8); MONOCYTES % (AUTO) 8.9 % (0.0-13.0); NEUTROPHILS # (AUTO) 8.6 x10^3/uL (2.2-4.8); NEUTROPHILS % (AUTO) 81.7 % (42.0-75.0); PLATELET COUNT 194 X10^3/uL (150.0-450.0); RED BLOOD COUNT 4.71 X10^6/uL (4.7-6.0); RED CELL DISTRIBUTION WIDTH 13.6 % (11.6-16.5); WHITE BLOOD COUNT 10.5 X10^3/uL (3.6-10.0)
[2022-11-17 05:27] LABS: ALANINE AMINOTRANSFERASE 27 Units/L (12-78); ALKALINE PHOSPHATASE 44 Units/L (46-116); ASPARTATE AMINO TRANSFERASE 13 Units/L (15-37); BLOOD UREA NITROGEN 8 mg/dL (7-18); CALCIUM 7.7 mg/dL (8.5-10.1); CARBON DIOXIDE 27.4 mmol/L (21-32); CHLORIDE 104 mmol/L (98-107); COR CA(FOR HYPOALB) 8.5 mg/dL (8.5-10.1); COR NA(FOR HYPERGLY) 138 mmol/L (136-145); CREATININE 0.86 mg/dL (0.70-1.30); GLUCOSE 120 mg/dL (65-99); POTASSIUM 3.6 mmol/L (3.5-5.1); SODIUM 138 mmol/L (136-145); TOTAL PROTEIN 5.6 g/dL (6.4-8.2); eGFR NON BLACK RACES > 60 (>60)
[2022-11-17] MEDS: ZEBETA TAB 5 MG PO SCH ×2 (08:26→08:34)
[2022-11-17] MEDS: SYNTHROID 50 mcg TAB PO SCH (08:26)
[2022-11-17] MEDS: FLOMAX PO SCH (08:28)
--- NOTE | 2022-11-17 09:42 | DR.PROGNOT ---
HOSPITAL PROGRESS NOTE Progress Note for Day of: Progress Note Date: 11/17/22 Chief Complaint Chief Complaint: Patient is complaining of diffuse abdominal pain, more involving the lower abdomen. Morphine was not helping the pain and had to switch it to Dilaudid. Still having rectal bleeding and frequent loose bowel movement. White count is slightly elevated with shift to the left and C-reactive proteins is elevated. CT scan showed colitis with thickened mucosa. Past Medical Family Social History Past Med/Fam/Surg Hx: No changes since H&P Allergies: Allergies No Known Drug Allergies Allergy (Unknown, Verified 11/17/22 04:42) Onset Date: 06/12/2020 Vital Signs Vital Signs: Temperature 98.5 F Temperature 98.5 F Pulse Rate [Right Brachial] 74 Pulse Rate [Left] 81 Respiratory Rate 20 Respiratory Rate 20 Respiratory Rate 20 Respiratory Rate 20 Blood Pressure [Right Arm] 121/71 Blood Pressure [Right Arm] 109/59 O2 Sat by Pulse Oximetry 96 O2 Sat by Pulse Oximetry 95 Physical Exam Oriented: Normal Respiratory: Normal Cardiovascular: Normal GI:Auscultation: Decreased GI: Tenderness: Other (Soft abdomen with moderate tenderness both left and right lower abdomen, no rigidity or rebound tenderness. No hernias) Speech Pattern: Clear and Appropriate Laboratory and Diagnostics Result Diagrams: 11/17/22 04:18 11/17/22 04:18 Labs: Laboratory WBC 10.5 X10^3/uL (3.6-10.0) H 11/17/22 04:18 RBC 4.71 X10^6/uL (4.7-6.0) 11/17/22 04:18 Hgb 15.5 g/dL (13.5-18.0) 11/17/22 04:18 Hct 43.9 % (42.0-54.0) 11/17/22 04:18 MCV 93.2 fL (80.0-100.0) 11/17/22 04:18 MCH 32.9 pg (27.0-34.0) 11/17/22 04:18 MCHC 35.3 g/dL (33.0-35.0) H 11/17/22 04:18 RDW 13.6 % (11.6-16.5) 11/17/22 04:18 Plt Count 194 X10^3/uL (150.0-450.0) 11/17/22 04:18 MPV 7.9 fL (7.4-11.0) 11/17/22 04:18 Neut % (Auto) 81.7 % (42.0-75.0) H 11/17/22 04:18 Lymph % (Auto) 8.3 % (21.0-51.0) L 11/17/22 04:18 [place] % (Auto) 8.9 % (0.0-13.0) 11/17/22 04:18 Eos % (Auto) 0.7 % (0.9-2.9) L 11/17/22 04:18 Baso % (Auto) 0.4 % (0.2-1.0) 11/17/22 04:18 Neut # (Auto) 8.6 x10^3/uL (2.2-4.8) H 11/17/22 04:18 Lymph # (Auto) 0.9 X10^3/uL (1.3-2.9) L 11/17/22 04:18 [place] # (Auto) 0.9 x10^3/uL (0.3-0.8) H 11/17/22 04:18 Eos # (Auto) 0.1 x10^3/uL (0.0-0.2) 11/17/22 04:18 Baso # (Auto) 0.0 X10^3/uL (0.0-0.1) 11/17/22 04:18 Absolute Nucleated RBC 0.0 /100WBC 11/17/22 04:18 Sodium 138 mmol/L (136-145) 11/17/22 04:18 Corrected Sodium 138 mmol/L (136-145) 11/17/22 04:18 Potassium 3.6 mmol/L (3.5-5.1) 11/17/22 04:18 Chloride 104 mmol/L (98-107) 11/17/22 04:18 Carbon Dioxide 27.4 mmol/L (21-32) 11/17/22 04:18 BUN 8 mg/dL (7-18) 11/17/22 04:18 Creatinine 0.86 mg/dL (0.70-1.30) 11/17/22 04:18 Est GFR (MDRD) Af Amer > 60 (>60) 11/17/22 04:18 Est GFR (MDRD) Non-Af > 60 (>60) 11/17/22 04:18 Glucose 120 mg/dL (65-99) H 11/17/22 04:18 Lactic Acid 1.0 mmol/L (0.4-2.0) 11/16/22 21:44 Calcium 7.7 mg/dL (8.5-10.1) L 11/17/22 04:18 Corrected Calcium 8.5 mg/dL (8.5-10.1) 11/17/22 04:18 Total Bilirubin 0.90 mg/dL (0.2-1.0) 11/17/22 04:18 AST 13 Units/L (15-37) L 11/17/22 04:18 ALT 27 Units/L (12-78) 11/17/22 04:18 Alkaline Phosphatase 44 Units/L (46-116) L 11/17/22 04:18 C-Reactive Protein 16.30 mg/L (0-3.0) H 11/16/22 21:44 Total Protein 5.6 g/dL (6.4-8.2) L 11/17/22 04:18 Albumin 3.0 g/dL (3.4-5.0) L 11/17/22 04:18 Globulin 2.6 g/dL (2.5-4.5) 11/17/22 04:18 Albumin/Globulin Ratio 1.2 Ratio (1.1-2.1) 11/17/22 04:18 Amylase 31 Units/L (25-115) 11/16/22 21:44 Lipase 70 Units/L (73-393) L 11/16/22 21:44 Assessment and Plan 1: Recent diarrhea with acute colitis. On IV antibiotics both Flagyl and Cipro. Proper hydration and pain control. 2: Rectal bleeding most probably related to the colitis. Same management and repeat lab work. 3: History of perforated diverticulitis in the past required sigmoid resection and staged surgery. To obtain C. difficile and stool culture. DVT prophylaxis and reorder his old medications. Problem Patient Problems: Patient Problems (Updated 11/16/22 @ 23:31 by Rosa Stringer) Colitis (Acute) K52.9 Intractable abdominal pain (Acute) R10.9
[2022-11-17] MEDS ORDERED: LOVENOX INJ 40 MG SYR SC SCH (10:00)
[2022-11-17] MEDS: LEVAQUIN PREMIX IV 500 MG 500 MG/100 ML BAG IV SCH (10:42)
[2022-11-17] MEDS: PATIENT'S HOME MEDICATION PO SCH (10:57)
[2022-11-17] MEDS ORDERED: POTASSIUM CHLORIDE LIQ 20 MEQ UDC PO PRN (17:17)
[2022-11-17] MEDS ORDERED: K-RIDER 10 MEQ/NS 100 ML 10 MEQ/100 ML BAG IV PRN (17:17)
[2022-11-17] MEDS ORDERED: MICRO K EXTEN CAP 10 MEQ PO PRN (17:17)
[2022-11-17] MEDS ORDERED: KLOR-CON PO PRN (17:17)
[2022-11-17] MEDS ORDERED: POTASSIUM CHL 40 MEQ/NS 0.45% 500 ML IV PRN (17:17)
[2022-11-17] MEDS ORDERED: POTASSIUM CHL 60 MEQ/NS 0.45% 500 ML IV PRN (17:17)
[2022-11-17] MEDS: K-DUR TAB 20 MEQ PO PRN (17:29)
[2022-11-17] MEDS: RESTORIL CAP 15 MG PO PRN (21:08)
[2022-11-18] MEDS: DILAUDID INJ IVP PRN ×2 (00:51→20:16)
[2022-11-18] MEDS: BENADRYL INJ 50 MG VIAL IVP PRN ×2 (00:51→20:16)
--- NOTE | 2022-11-18 02:22 | RAD ---
PROCEDURE: Abdomen X-ray 1 View .HISTORY: COLITIS .TECHNIQUE: AP supine abdomen view .COMPARISON: 06/12/2020.TECHNICAL QUALITY: Satisfactory .FINDINGS:Scattered gas and feces in the colon without distention. No obstruction or ileus.No organomegaly.No abnormal calcifications.IMPRESSION:Nonspecific bowel-gas pattern.Electronically signed by: Lenin Eaton (November 18, 2022 02:21:00)
[2022-11-18] MEDS: NS 1,000 ML IV 1,000 ML IV SCH ×4 (02:55→23:41)
[2022-11-18] MEDS: FLAGYL IV PREMIX 500 MG BAG 500 MG/100 ML BAG IV SCH ×4 (03:51→20:16)
[2022-11-18 06:20] LABS: BASOPHILS % (AUTO) 0.3 % (0.2-1.0); EOSINOPHILS # (AUTO) 0.2 x10^3/uL (0.0-0.2); HEMOGLOBIN 14.4 g/dL (13.5-18.0); LYMPHOCYTES # (AUTO) 1.3 X10^3/uL (1.3-2.9); LYMPHOCYTES % (AUTO) 10.9 % (21.0-51.0); MEAN CORPUSCULAR HEMOGLOBIN 32.1 pg (27.0-34.0); MEAN CORPUSCULAR HGB CONC 34.3 g/dL (33.0-35.0); MEAN CORPUSCULAR VOLUME 93.7 fL (80.0-100.0); MEAN PLATELET VOLUME 8.1 fL (7.4-11.0); MONOCYTES # (AUTO) 0.9 x10^3/uL (0.3-0.8); MONOCYTES % (AUTO) 7.4 % (0.0-13.0); NEUTROPHILS # (AUTO) 9.7 x10^3/uL (2.2-4.8); NEUTROPHILS % (AUTO) 79.4 % (42.0-75.0); PLATELET COUNT 170 X10^3/uL (150.0-450.0); RED BLOOD COUNT 4.49 X10^6/uL (4.7-6.0); RED CELL DISTRIBUTION WIDTH 13.2 % (11.6-16.5); WHITE BLOOD COUNT 12.2 X10^3/uL (3.6-10.0)
[2022-11-18 06:35] LABS: ALANINE AMINOTRANSFERASE 19 Units/L (12-78); ALBUMIN 2.6 g/dL (3.4-5.0); ALKALINE PHOSPHATASE 39 Units/L (46-116); ASPARTATE AMINO TRANSFERASE 19 Units/L (15-37); BLOOD UREA NITROGEN 7 mg/dL (7-18); CALCIUM 7.6 mg/dL (8.5-10.1); CARBON DIOXIDE 28.6 mmol/L (21-32); CHLORIDE 102 mmol/L (98-107); COR CA(FOR HYPOALB) 8.7 mg/dL (8.5-10.1); CREATININE 0.73 mg/dL (0.70-1.30); GLUCOSE 84 mg/dL (65-99); SODIUM 137 mmol/L (136-145); TOTAL PROTEIN 5.3 g/dL (6.4-8.2); eGFR NON BLACK RACES > 60 (>60)
[2022-11-18 06:39] LABS: POTASSIUM 3.6 mmol/L (3.5-5.1)
--- NOTE | 2022-11-18 08:18 | DR.PROGNOT ---
HOSPITAL PROGRESS NOTE Progress Note for Day of: Progress Note Date: 11/18/22 Chief Complaint Chief Complaint: Patient is complaining of diffuse abdominal pain, more involving the lower abdomen. still having frequent loose BM positive for C-Dif WBC 12.2 ..normal BUN/Creat , Lytes , LFT.. Past Medical Family Social History Past Med/Fam/Surg Hx: No changes since H&P Allergies: Allergies No Known Drug Allergies Allergy (Unknown, Verified 11/17/22 04:42) Onset Date: 06/12/2020 hydromorphone [From Dilaudid] Adverse Reaction (Mild, Verified 11/17/22 15:05) ITCHING DILAUDID MAKES HIM ITCH PER PT Vital Signs Vital Signs: Temperature 98.2 F Pulse Rate [Right Brachial] 92 Respiratory Rate 18 Respiratory Rate 16 Respiratory Rate 18 Blood Pressure [Right Arm] 108/57 O2 Sat by Pulse Oximetry 94 Physical Exam Oriented: Normal Respiratory: Normal Cardiovascular: Normal GI:Auscultation: Decreased GI: Tenderness: Other (Soft abdomen with moderate tenderness both left and right lower abdomen, no rigidity or rebound tenderness. No hernias) Speech Pattern: Clear and Appropriate Laboratory and Diagnostics Result Diagrams: 11/18/22 05:15 11/18/22 05:15 Labs: Laboratory WBC 12.2 X10^3/uL (3.6-10.0) H 11/18/22 05:15 RBC 4.49 X10^6/uL (4.7-6.0) L 11/18/22 05:15 Hgb 14.4 g/dL (13.5-18.0) 11/18/22 05:15 Hct 42.0 % (42.0-54.0) 11/18/22 05:15 MCV 93.7 fL (80.0-100.0) 11/18/22 05:15 MCH 32.1 pg (27.0-34.0) 11/18/22 05:15 MCHC 34.3 g/dL (33.0-35.0) 11/18/22 05:15 RDW 13.2 % (11.6-16.5) 11/18/22 05:15 Plt Count 170 X10^3/uL (150.0-450.0) 11/18/22 05:15 MPV 8.1 fL (7.4-11.0) 11/18/22 05:15 Neut % (Auto) 79.4 % (42.0-75.0) H 11/18/22 05:15 Lymph % (Auto) 10.9 % (21.0-51.0) L 11/18/22 05:15 [place] % (Auto) 7.4 % (0.0-13.0) 11/18/22 05:15 Eos % (Auto) 2.0 % (0.9-2.9) 11/18/22 05:15 Baso % (Auto) 0.3 % (0.2-1.0) 11/18/22 05:15 Neut # (Auto) 9.7 x10^3/uL (2.2-4.8) H 11/18/22 05:15 Lymph # (Auto) 1.3 X10^3/uL (1.3-2.9) 11/18/22 05:15 [place] # (Auto) 0.9 x10^3/uL (0.3-0.8) H 11/18/22 05:15 Eos # (Auto) 0.2 x10^3/uL (0.0-0.2) 11/18/22 05:15 Baso # (Auto) 0.0 X10^3/uL (0.0-0.1) 11/18/22 05:15 Absolute Nucleated RBC 0.1 /100WBC 11/18/22 05:15 Sodium 137 mmol/L (136-145) 11/18/22 05:15 Corrected Sodium TNP 11/18/22 05:15 Potassium 3.6 mmol/L (3.5-5.1) 11/18/22 05:15 Chloride 102 mmol/L (98-107) 11/18/22 05:15 Carbon Dioxide 28.6 mmol/L (21-32) 11/18/22 05:15 BUN 7 mg/dL (7-18) 11/18/22 05:15 Creatinine 0.73 mg/dL (0.70-1.30) 11/18/22 05:15 Est GFR (MDRD) Af Amer > 60 (>60) 11/18/22 05:15 Est GFR (MDRD) Non-Af > 60 (>60) 11/18/22 05:15 Glucose 84 mg/dL (65-99) 11/18/22 05:15 Lactic Acid 1.0 mmol/L (0.4-2.0) 11/16/22 21:44 Calcium 7.6 mg/dL (8.5-10.1) L 11/18/22 05:15 Corrected Calcium 8.7 mg/dL (8.5-10.1) 11/18/22 05:15 Total Bilirubin 1.00 mg/dL (0.2-1.0) 11/18/22 05:15 AST 19 Units/L (15-37) 11/18/22 05:15 ALT 19 Units/L (12-78) 11/18/22 05:15 Alkaline Phosphatase 39 Units/L (46-116) L 11/18/22 05:15 C-Reactive Protein 16.30 mg/L (0-3.0) H 11/16/22 21:44 Total Protein 5.3 g/dL (6.4-8.2) L 11/18/22 05:15 Albumin 2.6 g/dL (3.4-5.0) L 11/18/22 05:15 Globulin 2.7 g/dL (2.5-4.5) 11/18/22 05:15 Albumin/Globulin Ratio 1.0 Ratio (1.1-2.1) L 11/18/22 05:15 Amylase 31 Units/L (25-115) 11/16/22 21:44 Lipase 70 Units/L (73-393) L 11/16/22 21:44 Stl C. diff Tox B Gene Positive (NEGATIVE) A 11/17/22 10:30 Stl C. diff [id number] Presumptive negative (NEGATIVE) 11/17/22 10:30 C. difficile Toxin A&B Negative (NEGATIVE) 11/17/22 10:30 Assessment and Plan 1: C Dif colitis .. on IV Flagyl , IVF 2: Rectal bleeding most probably related to the colitis. Same management and repeat lab work. 3: History of perforated diverticulitis in the past required sigmoid resection and staged surgery. DVT prophylaxis and reorder his old medications. on full liquid diet .. Problem Patient Problems: Patient Problems (Updated 11/16/22 @ 23:31 by Rosa Stringer) Colitis (Acute) K52.9 Intractable abdominal pain (Acute) R10.9
[2022-11-18] MEDS: FLOMAX PO SCH (09:03)
[2022-11-18] MEDS: SYNTHROID 50 mcg TAB PO SCH (09:03)
[2022-11-18] MEDS: LOVENOX INJ 40 MG SYR SC SCH (09:05)
[2022-11-18] MEDS: PATIENT'S HOME MEDICATION PO SCH (09:05)
[2022-11-18 09:11] VITALS: BMI 36.1
[2022-11-18] MEDS: LEVAQUIN PREMIX IV 500 MG 500 MG/100 ML BAG IV SCH (10:44)
[2022-11-18] MEDS: ZOFRAN INJ 4 MG VIAL IVP PRN ×2 (14:18→20:16)
[2022-11-18] MEDS: PROTONIX INJ 40 MG VIAL IVP SCH ×2 (16:05→20:16)
[2022-11-18] MEDS: CIPRO IV 400 MG PREMIX* 400 MG/200 ML IV.SOLN. IV SCH (19:39)
[2022-11-18] MEDS: RESTORIL CAP 15 MG PO PRN (20:16)
[2022-11-19] MEDS: FLAGYL IV PREMIX 500 MG BAG 500 MG/100 ML BAG IV SCH ×4 (02:29→21:01)
[2022-11-19] MEDS: NS 1,000 ML IV 1,000 ML IV SCH ×3 (03:39→16:53)
[2022-11-19 05:48] LABS: BASOPHILS % (AUTO) 0.4 % (0.2-1.0); EOSINOPHILS # (AUTO) 0.3 x10^3/uL (0.0-0.2); EOSINOPHILS % (AUTO) 2.9 % (0.9-2.9); HEMATOCRIT 38.7 % (42.0-54.0); HEMOGLOBIN 13.5 g/dL (13.5-18.0); LYMPHOCYTES # (AUTO) 1.1 X10^3/uL (1.3-2.9); MEAN CORPUSCULAR HEMOGLOBIN 32.6 pg (27.0-34.0); MEAN CORPUSCULAR HGB CONC 34.8 g/dL (33.0-35.0); MEAN CORPUSCULAR VOLUME 93.6 fL (80.0-100.0); MEAN PLATELET VOLUME 7.8 fL (7.4-11.0); MONOCYTES # (AUTO) 0.7 x10^3/uL (0.3-0.8); MONOCYTES % (AUTO) 7.7 % (0.0-13.0); NEUTROPHILS # (AUTO) 7.3 x10^3/uL (2.2-4.8); PLATELET COUNT 171 X10^3/uL (150.0-450.0); RED BLOOD COUNT 4.13 X10^6/uL (4.7-6.0); RED CELL DISTRIBUTION WIDTH 13.5 % (11.6-16.5); WHITE BLOOD COUNT 9.5 X10^3/uL (3.6-10.0)
[2022-11-19 06:14] LABS: ALANINE AMINOTRANSFERASE 16 Units/L (12-78); ALBUMIN 2.4 g/dL (3.4-5.0); ASPARTATE AMINO TRANSFERASE 14 Units/L (15-37); BLOOD UREA NITROGEN 6 mg/dL (7-18); CALCIUM 7.4 mg/dL (8.5-10.1); CARBON DIOXIDE 28.4 mmol/L (21-32); CHLORIDE 102 mmol/L (98-107); COR CA(FOR HYPOALB) 8.7 mg/dL (8.5-10.1); CREATININE 0.95 mg/dL (0.70-1.30); GLUCOSE 87 mg/dL (65-99); POTASSIUM 3.7 mmol/L (3.5-5.1); SODIUM 139 mmol/L (136-145); TOTAL PROTEIN 5.1 g/dL (6.4-8.2); eGFR NON BLACK RACES > 60 (>60)
[2022-11-19 06:28] LABS: ALKALINE PHOSPHATASE 36 Units/L (46-116)
--- NOTE | 2022-11-19 09:16 | DR.PROGNOT ---
HOSPITAL PROGRESS NOTE Progress Note for Day of: Progress Note Date: 11/19/22 Chief Complaint Chief Complaint: Moderate lower abdominal pain today. Having 4-5 loose bowel movement, no bleeding. Complaining of bloating feeling but no nausea or vomiting. White count is normal today. Electrolytes BUN/creatinine are normal. Afebrile. Past Medical Family Social History Past Med/Fam/Surg Hx: No changes since H&P Allergies: Allergies No Known Drug Allergies Allergy (Unknown, Verified 11/17/22 04:42) Onset Date: 06/12/2020 hydromorphone [From Dilaudid] Adverse Reaction (Mild, Verified 11/17/22 15:05) ITCHING DILAUDID MAKES HIM ITCH PER PT Vital Signs Vital Signs: Temperature 98.1 F Pulse Rate [Right Brachial] 82 Respiratory Rate 20 Blood Pressure [Right Arm] 144/73 O2 Sat by Pulse Oximetry 97 Physical Exam Oriented: Normal Respiratory: Normal Cardiovascular: Normal GI:Auscultation: Decreased GI: Tenderness: Other (Soft abdomen with moderate tenderness both left and right lower abdomen, no rigidity or rebound tenderness. No hernias) Speech Pattern: Clear and Appropriate Laboratory and Diagnostics Result Diagrams: 11/19/22 04:58 11/19/22 04:58 Labs: 11/16/22 23:56 Blood Blood Culture - Preliminary 11/16/22 21:44 Blood Blood Culture - Preliminary Laboratory WBC 9.5 X10^3/uL (3.6-10.0) 11/19/22 04:58 RBC 4.13 X10^6/uL (4.7-6.0) L 11/19/22 04:58 Hgb 13.5 g/dL (13.5-18.0) 11/19/22 04:58 Hct 38.7 % (42.0-54.0) L 11/19/22 04:58 MCV 93.6 fL (80.0-100.0) 11/19/22 04:58 MCH 32.6 pg (27.0-34.0) 11/19/22 04:58 MCHC 34.8 g/dL (33.0-35.0) 11/19/22 04:58 RDW 13.5 % (11.6-16.5) 11/19/22 04:58 Plt Count 171 X10^3/uL (150.0-450.0) 11/19/22 04:58 MPV 7.8 fL (7.4-11.0) 11/19/22 04:58 Neut % (Auto) 77.0 % (42.0-75.0) H 11/19/22 04:58 Lymph % (Auto) 12.0 % (21.0-51.0) L 11/19/22 04:58 [place] % (Auto) 7.7 % (0.0-13.0) 11/19/22 04:58 Eos % (Auto) 2.9 % (0.9-2.9) 11/19/22 04:58 Baso % (Auto) 0.4 % (0.2-1.0) 11/19/22 04:58 Neut # (Auto) 7.3 x10^3/uL (2.2-4.8) H 11/19/22 04:58 Lymph # (Auto) 1.1 X10^3/uL (1.3-2.9) L 11/19/22 04:58 [place] # (Auto) 0.7 x10^3/uL (0.3-0.8) 11/19/22 04:58 Eos # (Auto) 0.3 x10^3/uL (0.0-0.2) H 11/19/22 04:58 Baso # (Auto) 0.0 X10^3/uL (0.0-0.1) 11/19/22 04:58 Absolute Nucleated RBC 0.0 /100WBC 11/19/22 04:58 Sodium 139 mmol/L (136-145) 11/19/22 04:58 Corrected Sodium TNP 11/19/22 04:58 Potassium 3.7 mmol/L (3.5-5.1) 11/19/22 04:58 Chloride 102 mmol/L (98-107) 11/19/22 04:58 Carbon Dioxide 28.4 mmol/L (21-32) 11/19/22 04:58 BUN 6 mg/dL (7-18) L 11/19/22 04:58 Creatinine 0.95 mg/dL (0.70-1.30) 11/19/22 04:58 Est GFR (MDRD) Af Amer > 60 (>60) 11/19/22 04:58 Est GFR (MDRD) Non-Af > 60 (>60) 11/19/22 04:58 Glucose 87 mg/dL (65-99) 11/19/22 04:58 Lactic Acid 1.0 mmol/L (0.4-2.0) 11/16/22 21:44 Calcium 7.4 mg/dL (8.5-10.1) L 11/19/22 04:58 Corrected Calcium 8.7 mg/dL (8.5-10.1) 11/19/22 04:58 Total Bilirubin 0.70 mg/dL (0.2-1.0) 11/19/22 04:58 AST 14 Units/L (15-37) L 11/19/22 04:58 ALT 16 Units/L (12-78) 11/19/22 04:58 Alkaline Phosphatase 36 Units/L (46-116) L 11/19/22 04:58 C-Reactive Protein 16.30 mg/L (0-3.0) H 11/16/22 21:44 Total Protein 5.1 g/dL (6.4-8.2) L 11/19/22 04:58 Albumin 2.4 g/dL (3.4-5.0) L 11/19/22 04:58 Globulin 2.7 g/dL (2.5-4.5) 11/19/22 04:58 Albumin/Globulin Ratio 0.9 Ratio (1.1-2.1) L 11/19/22 04:58 Amylase 31 Units/L (25-115) 11/16/22 21:44 Lipase 70 Units/L (73-393) L 11/16/22 21:44 Stl C. diff Tox B Gene Positive (NEGATIVE) A 11/17/22 10:30 Stl C. diff [id number] Presumptive negative (NEGATIVE) 11/17/22 10:30 C. difficile Toxin A&B Negative (NEGATIVE) 11/17/22 10:30 Assessment and Plan 1: Improving C Dif colitis .. on IV Flagyl , IVF Added vancomycin 250 mg by mouth every 8 hours. 2: Rectal bleeding had subsided. Most probably related to the colitis. Same management and repeat lab work. 3: History of perforated diverticulitis in the past required sigmoid resection and staged surgery. DVT prophylaxis on full liquid diet .. Problem Patient Problems: Patient Problems (Updated 11/16/22 @ 23:31 by Rosa Stringer) Colitis (Acute) K52.9 Intractable abdominal pain (Acute) R10.9
[2022-11-19] MEDS: FLOMAX PO SCH (09:43)
[2022-11-19] MEDS: K-DUR TAB 20 MEQ PO PRN (09:43)
[2022-11-19] MEDS: VANCOMYCIN HCL 250 MG CAP PO SCH ×3 (09:43→21:02)
[2022-11-19] MEDS: SYNTHROID 50 mcg TAB PO SCH (09:43)
[2022-11-19] MEDS: PATIENT'S HOME MEDICATION PO SCH (09:44)
[2022-11-19] MEDS: PROTONIX INJ 40 MG VIAL IVP SCH ×2 (09:44→21:02)
[2022-11-19] MEDS: LOVENOX INJ 40 MG SYR SC SCH (09:45)
[2022-11-19] MEDS: MYLICON TAB 80 MG CHEW PO PRN (14:44)
[2022-11-19] MEDS: RESTORIL CAP 15 MG PO PRN (21:02)
[2022-11-19] MEDS: DILAUDID INJ IVP PRN (23:10)
[2022-11-19] MEDS: BENADRYL INJ 50 MG VIAL IVP PRN (23:10)
[2022-11-20] MEDS: FLAGYL IV PREMIX 500 MG BAG 500 MG/100 ML BAG IV SCH ×2 (02:48→09:01)
[2022-11-20] MEDS: NS 1,000 ML IV 1,000 ML IV SCH (05:52)
[2022-11-20] MEDS: VANCOMYCIN HCL 250 MG CAP PO SCH ×2 (05:52→13:22)
[2022-11-20 06:09] LABS: BASOPHILS % (AUTO) 0.4 % (0.2-1.0); EOSINOPHILS # (AUTO) 0.3 x10^3/uL (0.0-0.2); EOSINOPHILS % (AUTO) 4.4 % (0.9-2.9); HEMATOCRIT 38.2 % (42.0-54.0); HEMOGLOBIN 13.3 g/dL (13.5-18.0); LYMPHOCYTES # (AUTO) 1.4 X10^3/uL (1.3-2.9); LYMPHOCYTES % (AUTO) 18.4 % (21.0-51.0); MEAN CORPUSCULAR HEMOGLOBIN 32.2 pg (27.0-34.0); MEAN CORPUSCULAR HGB CONC 34.7 g/dL (33.0-35.0); MEAN CORPUSCULAR VOLUME 92.7 fL (80.0-100.0); MEAN PLATELET VOLUME 7.6 fL (7.4-11.0); MONOCYTES # (AUTO) 0.7 x10^3/uL (0.3-0.8); MONOCYTES % (AUTO) 9.3 % (0.0-13.0); NEUTROPHILS % (AUTO) 67.5 % (42.0-75.0); PLATELET COUNT 199 X10^3/uL (150.0-450.0); RED BLOOD COUNT 4.12 X10^6/uL (4.7-6.0); RED CELL DISTRIBUTION WIDTH 13.1 % (11.6-16.5); WHITE BLOOD COUNT 7.3 X10^3/uL (3.6-10.0)
[2022-11-20 06:16] LABS: ALANINE AMINOTRANSFERASE 17 Units/L (12-78); ALBUMIN 2.4 g/dL (3.4-5.0); ALKALINE PHOSPHATASE 38 Units/L (46-116); ASPARTATE AMINO TRANSFERASE 13 Units/L (15-37); BLOOD UREA NITROGEN 5 mg/dL (7-18); CALCIUM 7.7 mg/dL (8.5-10.1); CARBON DIOXIDE 30.4 mmol/L (21-32); CHLORIDE 103 mmol/L (98-107); CREATININE 0.86 mg/dL (0.70-1.30); GLUCOSE 96 mg/dL (65-99); POTASSIUM 3.3 mmol/L (3.5-5.1); SODIUM 138 mmol/L (136-145); TOTAL PROTEIN 5.1 g/dL (6.4-8.2); eGFR NON BLACK RACES > 60 (>60)
[2022-11-20] MEDS: K-DUR TAB 20 MEQ PO PRN (09:00)
[2022-11-20] MEDS: FLOMAX PO SCH (09:00)
[2022-11-20] MEDS: MYLICON TAB 80 MG CHEW PO PRN (09:00)
[2022-11-20] MEDS: PROTONIX INJ 40 MG VIAL IVP SCH (09:01)
[2022-11-20] MEDS: SYNTHROID 50 mcg TAB PO SCH (09:01)
[2022-11-20] MEDS: LOVENOX INJ 40 MG SYR SC SCH (09:02)
[2022-11-20] MEDS: PATIENT'S HOME MEDICATION PO SCH (09:02)
[2022-11-20 12:31] VITALS: BP 148/79; PULSE 71; TEMP 97.9; O2SAT 94
== END 2022-11-20 14:50 | disposition home or self-care (01) ==
LOC: MED/SURG 21:01 → ER 21:01 → MED/SURG 11-17 00:40
PROVIDERS: ADMIT Surgery; ATTEND Surgery
DX: R19.7 Diarrhea, unspecified; R79.82 Elevated C-reactive protein (CRP); I10 Essential (primary) hypertension; A04.72 Enterocolitis due to Clostridium difficile, not specified as recurrent; K21.9 Gastro-esophageal reflux disease without esophagitis; R10.84 Generalized abdominal pain; K92.1 Melena; R73.09 Other abnormal glucose; Z90.49 Acquired absence of other specified parts of digestive tract; E03.8 Other specified hypothyroidism